=== PATIENT | female | born 1995 | race Caucasian/White ===

== ENCOUNTER 2022-06-11 21:24 | Emergency (ER) | payer OTHER ==
--- OUTSIDE RECORDS SUMMARY | 2022-06-11 21:29 | XMS REPORT | Continuity of Care Document ---
:1995 Author Organization [facility] t Address [address] [place] [address] Care Team Providers Name Role Phone Pcp, Patient Does Not Have A Primary Care Physician [phone] MAXIMINO ROSARIO Attending Clinician Unavailable ARRON CHILD Attending Clinician Unavailable Sly ARECHIGA, Moisés Attending Clinician Unavailable Maximino Rosario MD Attending Clinician Unavailable Jun Romero Attending Clinician [phone] JUN SALCEDO Attending Clinician Unavailable Josue Cheek Attending Clinician JOSUE MONTEIRO Attending Clinician Unavailable Morgan Luque Attending Clinician JAMAR BRISCOE Attending Clinician Unavailable Jamar Stein Attending Clinician Marco Moore MD Attending Clinician Doctor Unassigned, [place] Attending Clinician Unavailable PRETTY WEBSTER Attending Clinician Unavailable PRETTY WEBSTER Attending Clinician Unavailable Tay García PA-C Attending Clinician Only, Adc Test Attending Clinician Unavailable Pob, Adc Lab Main Attending Clinician Unavailable TAY GARCÍA Attending Clinician Unavailable Vtc-Lab Attending Clinician Unavailable RADHIKA BOLANOS Attending Clinician Unavailable Cici GUMMED TAPE PRESS OPERATORRadhika Attending Clinician ARCELIA BRANDON Attending Clinician Unavailable Stoney Palma MD Attending Clinician STONEY PALMA Attending Clinician Unavailable CHAZ THOMPSON Attending Clinician Unavailable Sadiq Chase Attending Clinician Jerry PHD, Orin Zhao Attending Clinician MORGAN DUGGAN Attending Clinician Unavailable MARCO MOORE Attending Clinician Unavailable MARCO MOORE Attending Clinician Unavailable JOSE ARIZMENDI Attending Clinician Unavailable Jose Arizmendi MD Attending Clinician Tripp Reyes DO Attending Clinician Bella Flores MD Attending Clinician Eduardo De Paz Attending Clinician EDUARDO VELIZ Attending Clinician Unavailable Ultrasound, Robinaebenezer Attending Clinician Unavailable Zacarias Perez MD Attending Clinician Gi Cervantes DNP Attending Clinician RYAN LOPEZ Attending Clinician Unavailable Guanako ANDRADEP, Ryan Attending Clinician GI CERVANTES Attending Clinician Unavailable Katie Cox RN Attending Clinician Unavailable 1, [facility] Attending Clinician Unavailable Tatyana Rodriguez MD Attending Clinician TATYANA RODRIGUEZ Attending Clinician Unavailable BRANDON PERAZA Attending Clinician Unavailable Faculty, [facility] Attending Clinician Unavailable [facility] Attending Clinician Unavailable Jazzy Antonio MD Attending Clinician BOUCHRA PASTRANA Attending Clinician Unavailable CLAUDIO GAN Attending Clinician Unavailable Sai Morris Attending Clinician Unavailable UNKNOWN, ATTENDING Attending Clinician Unavailable Bradly JACOMENidia Attending Clinician Denys LIU Belal Pavel Attending Clinician Vls-Lab Attending Clinician Unavailable MAXIMINO ROSARIO Admitting Clinician Unavailable Maximino Rosario MD Admitting Clinician STONEY PALMA Admitting Clinician Unavailable JOSE ARIZMENDI Admitting Clinician Unavailable Jose Arizmendi MD Admitting Clinician Physician, No Primary or Family Admitting Clinician Unavaila ble Payers Payer Name Policy Type Policy Number Effective Date Expiration Date Sue HAYWOOD [id number] 2018 HEALTH 00:00:00 Problems Condition Condition Condition Status Onset Resolution Last Treating Co mments Source Name Details Category Date Date Treatment Clinician Date Relies on Relies on Disease Active Uni vers partner partner 03-28 [place] contracept contracept Br anch ion ion Diarrhea, Diarrhea, Disease Active Overview: Univers unspecifie unspecifie 608 Formattin ity of d type d type 00:00: g of this [place] 00 note Medical might be Branch different from the original. Added automatic ally from request for surgery [id number] Abdominal Abdominal Disease Active Overview: Univers pain, pain, 608 Formattin ity of generalize generalize 00:00: g of this [place] d d 00 note Medical might be Branch different from the original. Added automatic ally from request for surgery [id number] Single Single Disease Active 2020-07 Univers liveborn liveborn 08-17 ity of 00:00: [place] 00 Medical Branch Disease Active 2020-07 Univers (spontaneo (spontaneo 08-17 [place] vaginal [place] delivery[place] 00 [facility] radha Branch Anemia of Anemia of Disease Active 2020-07 Uni vers mother in mother in 1-15 [place] of , , [place] antepartum antepartum 00 Me dical Branch Elevated Elevated Disease Active 2020-07 Unive rs BP without BP without 1-12 it y of diagnosis diagnosis 00:[place] of of 00 Medical hypertensi hypertensi Br anch on on Tobacco Tobacco Disease Active Overview: Univ ers abuse abuse 4-05 Formattin ity of 00:00: g of this [place] 00 note Medical might be Branch different from the original. Cessation at 12 weeks Screening Screening Disease Active Uni vers examinatio examinatio 3-12 it y of n for STD n for STD [place] ([place]ually (sexually 00 [facility] transmitte transmitte Br anch d disease) d disease) Anal Anal Disease Active Overview: Univer s fissure fissure 03-22 Formattin ity o f 00:00: g of this [place] 00 note Medical might be Branch different from the original. Added automatic ally from request for surgery [id number] Family Family Disease Active Overview: Univer s history of history of 9 Formattin ity of colon colon 00:00: g of this [place] cancer cancer 00 note Medical might be Branch different from the original. Added automatic ally from request for surgery [id number] 39 weeks 39 weeks Disease Active Unive rs gestation gestation 6-03 ity of of of 00:00: [place] 00 [facility] Branch Overweight Overweight Disease Active U nivers (BMI (BMI 5-30 ity of 25.0-29.9) 25.0-29.9) [place] Obesity Obesity Disease Active Univers (BMI (BMI 5-22 ity of 30-39.9) 30-39.9) 00:00: [place] [facility] Multiparit Multiparit Disease Active U nivers y y 3-12 ity of 00:00: [place] 00 Medical Branch History of History of Disease Active 2017-07 U nivers headache headache 2-03 ity of 00:00: [place] [facility] Supervisio Supervisio Disease Active 2017-07 Overview : Univers n of high n of high 0-08 Formattin i ty of risk risk 00:00: g of this [place] , , 00 note Me dical antepartum antepartum might be Branch different from the original. 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) 00 Medica l infection infection Bran ch History of History of Disease Active U nivers depression depression 5-09 it y of 00:00: [place] 00 Medical Branch Well woman Well woman Disease Active 2015-07 U nivers exam exam 0-03 ity of 00:00: [place] 00 Medical Branch Bipolar I Bipolar I Disease Active Uni vers disorder, disorder, 1-10 ity of most most 00:00: [place] recent recent 00 Medical episode episode Branch (or (or current) current) manic manic Allergies, Adverse Reactions, Alerts Allergy Allergy Status Severity Reaction(s) Onset Inactive Treating Comm ents Source Name Type Date Date Clinician Hydrocod Propensi Active Nausea Univer s one ty to and/or 11-23 ity of adverse Vomiting 00:00: [place] reaction 00 Medical s Branch HYDROCOD DRUG Active N/V Univers ONE INGREDI 11-23 ity of 00:00: [place] 00 Medical Branch No Known DA Active U [facility] Allergie - Clear s 00:00: [address] Social History Social Habit Start Date Stop Date Quantity Comments Source History of Cigarette Smoker Universi ty of tobacco use [place] [facility] History SDOH University o f Alcohol Frequency [place] M edical [facility] History SDOH University o f Alcohol Std [place] Medical Drinks Branch History SDAL University o f Alcohol Binge [place] [facility] Exposure to 2022-03-18 2022-03-28 Not sure University of SARS-CoV-2 00:00:00 15:51:00 [facility] (event) Branch Alcohol intake 2022-03-28 2022-03-28 0 /d University of 00:00:00 00:00:00 [facility] Tobacco use and 2021-10-03 2021-10-03 Smokeless tobacco Un iversity of exposure 00:00:00 00:00:00 non-user [facility] Alcohol Comment 2018-04-26 2018-04-26 Dc'd 07/27/2014/ Tess rsity of 00:00:00 00:00:00 last drank [facility] 04/20/2018 x 2 Branch drinks a day Sex Ass[birth year] At [birth year] Universit y of 00:00:00 00:00:00 [facility] Smoking Status Start Date Stop Date Source Ex-smoker 2021-10-03 00:00:00 2021-10-03 00:00:00 [facility] [place] Medications Ordered Filled Start Stop Current Ordering Indication Dosage Frequency Signature Comments Components Source Medication Medication Date Date Medication? Clinician (SIG) Name Name metroNIDAZO Yes [id number] 500mg Take 1 Univers LE 500 mg 9-30 tablet by ity o f tablet 00:00: mouth in [place] [address] the Medical morning Branch and 1 tablet in the evening. metroNIDAZO Yes [id number] 500mg Take 1 Univers LE 500 mg 9-30 tablet by ity o f tablet 00:00: mouth in [place] [address] the Medical morning Branch and 1 tablet in the evening. metroNIDAZO Yes [id number] 500mg Take 1 Univers LE 500 mg 9-30 tablet by ity o f tablet 00:00: mouth in [place] [address] the Medical morning Branch and 1 tablet in the evening. metroNIDAZO Yes [id number] 500mg Take 1 Univers LE 500 mg 9-30 tablet by ity o f tablet 00:00: mouth in [place] [address] the Medical morning Branch and 1 tablet in the evening. metroNIDAZO Yes [id number] 500mg Take 1 Univers LE 500 mg 9-30 tablet by ity o f tablet 00:00: mouth in [place] [address] the Medical morning Branch and 1 tablet in the evening. metroNIDAZO Yes [id number] 500mg Take 1 Univers LE 500 mg 9-12 tablet by ity o f tablet 00:00: mouth in [place] [address] the Medical morning Branch and 1 tablet in the evening. metroNIDAZO Yes [id number] 500mg Take 1 Univers LE 500 mg 9-12 tablet by ity o f tablet 00:00: mouth in [place] [address] the Medical morning Branch and 1 tablet in the evening. metroNIDAZO Yes [id number] 500mg Take 1 Univers LE 500 mg 9-12 tablet by ity o f tablet 00:00: mouth in [place] [address] the Medical morning Branch and 1 tablet in the evening. metroNIDAZO Yes [id number] 500mg Take 1 Univers LE 500 mg 9-12 tablet by ity o f tablet 00:00: mouth in [place] [address] the Medical morning Branch and 1 tablet in the evening. metroNIDAZO Yes [id number] 500mg Take 1 Univers LE 500 mg 9-12 tablet by ity o f tablet 00:00: mouth in [place] 00 the Medical morning Branch and 1 tablet in the evening. metroNIDAZO 2022-0 Yes [id number] 500mg Take 1 Univers LE 500 mg 9-12 tablet by ity o f tablet 00:00: mouth in [place] 00 the Medical morning Branch and 1 tablet in the evening. metroNIDAZO 2022-0 Yes [id number] 500mg Take 1 Univers LE 500 mg 9-12 tablet by ity o f tablet 00:00: mouth in [place] 00 the Medical morning Branch and 1 tablet in the evening. metroNIDAZO 2022-0 Yes [id number] 500mg Take 1 Univers LE 500 mg 9-12 tablet by ity o f tablet 00:00: mouth in [place] 00 the Medical morning Branch and 1 tablet in the evening. cyclobenzap 2-0 Yes [id number] 10mg Take 1 Univers rine 10 mg 8-14 tablet by ity of tablet 00:00: mouth 3 [place] (three) Medical times Branch daily as needed for Muscle Spasms. cyclobenzap 2-0 Yes [id number] 10mg Take 1 Univers rine 10 mg 8-14 tablet by ity of tablet 00:00: mouth 3 [place] (three) Medical times Branch daily as needed for Muscle Spasms. cyclobenzap 2-0 Yes [id number] 10mg Take 1 Univers rine 10 mg 8-14 tablet by ity of tablet 00:00: mouth 3 [place] (three) Medical times Branch daily as needed for Muscle Spasms. cyclobenzap 2022-0 Yes [id number] 10mg Take 1 Univers rine 10 mg 8-14 tablet by ity of tablet 00:00: mouth 3 [place] (three) Medical times Branch daily as needed for Muscle Spasms. cyclobenzap 2022-0 Yes [id number] 10mg Take 1 Univers rine 10 mg 8-14 tablet by ity of tablet 00:00: mouth 3 [place] (three) Medical times Branch daily as needed for Muscle Spasms. cyclobenzap 2022-0 Yes [id number] 10mg Take 1 Univers rine 10 mg 8-14 tablet by ity of tablet 00:00: mouth 3 [place] (three) Medical times Branch daily as needed for Muscle Spasms. cyclobenzap 2022-0 Yes [id number] 10mg Take 1 Univers rine 10 mg 8-14 tablet by ity of tablet 00:00: mouth 3 [place] 00 (three) Medical times Branch daily as needed for Muscle Spasms. cyclobenzap 2021-0 Yes [id number] 10mg Take 1 Univers rine 10 mg 8-14 tablet by ity of tablet 00:00: mouth 3 [place] 00 (three) Medical times Branch daily as needed for Muscle Spasms. Immunizations Ordered Immunization Filled Immunization Date Status Commen ts Source Name Name [facility] 2021-03-29 Completed University of 00:00:00 [facility] TDAP 2021-03-29 Completed University of 00:00:00 [facility] TDAP 2021-03-29 Completed University of 00:00:00 [facility] TDAP 2021-03-29 Completed University of 00:00:00 [facility] TDAP 2021-03-29 Completed University of 00:00:00 [facility] TDAP 2021-03-29 Completed University of 00:00:00 [facility] TDAP 2021-03-29 Completed University of 00:00:00 [facility] TDAP 2021-03-29 Completed University of 00:00:00 [facility] TDAP 2018-10-15 Completed University of 00:00:00 [facility] TDAP 2018-10-15 Completed University of 00:00:00 [facility] TDAP 2018-10-15 Completed University of 00:00:00 [facility] TDAP 2018-10-15 Completed University of 00:00:00 [facility] TDAP 2018-10-15 Completed University of 00:00:00 [facility] TDAP 2018-10-15 Completed University of 00:00:00 [facility] TDAP 2018-10-15 Completed University of 00:00:00 [facility] TDAP 2018-10-15 Completed University of 00:00:00 [facility] PPD (TB) 2012-08-23 Completed University of 00:00:00 [facility] PPD (TB) 2012-08-23 Completed University of 00:00:00 [facility] PPD (TB) 2012-08-23 Completed University of 00:00:00 [facility] PPD (TB) 2012-08-23 Completed University of 00:00:00 [facility] PPD (TB) 2012-08-23 Completed University of 00:00:00 [facility] PPD (TB) 2012-08-23 Completed University of 00:00:00 [facility] PPD (TB) 2012-08-23 Completed University of 00:00:00 [facility] PPD (TB) 2012-08-23 Completed University of 00:00:00 [facility] HPV Unspecified 2011-07-03 Completed Universit y of 00:00:00 [facility] Meningococcal 2011-07-03 Completed University of Polysaccharide 00:00:00 [place] Medi radha (groups A, C, Y and Branc h W-135) conjugate vaccine (MCV4P) TDAP 2011-07-03 Completed University of 00:00:00 [facility] Varicella 2011-07-03 Completed University of (varivax)(chicken 00:00:00 [place] M edical pox) Branch HPV Unspecified 2011-07-03 Completed Universit y of 00:00:00 [facility] Meningococcal 2011-07-03 Completed University of Polysaccharide 00:00:00 [place] Medi radha (groups A, C, Y and Branc h W-135) conjugate vaccine (MCV4P) TDAP 2011-07-03 Completed University of 00:00:00 [facility] Varicella 2011-07-03 Completed University of (varivax)(chicken 00:00:00 [place] [facility]ical pox) Branch HPV Unspecified 2011-07-03 Completed Universit y of 00:00:00 [facility] Meningococcal 2011-07-03 Completed University of Polysaccharide 00:00:00 [place] Medi radha (groups A, C, Y and Branc h W-135) conjugate vaccine (MCV4P) TDAP 2011-07-03 Completed University of 00:00:00 [facility] Varicella 2011-07-03 Completed University of (varivax)(chicken 00:00:00 [place] [facility]ical pox) Branch HPV Unspecified 2011-07-03 Completed Universit y of 00:00:00 [facility] Meningococcal 2011-07-03 Completed University of Polysaccharide 00:00:00 [place] Medi radha (groups A, C, Y and Branc h W-135) conjugate vaccine (MCV4P) TDAP 2011-07-03 Completed University of 00:00:00 [facility] Varicella 2011-07-03 Completed University of (varivax)(chicken 00:00:00 [place] M [facility]ical pox) Branch HPV Unspecified 2011-07-03 Completed Universit y of 00:00:00 [facility] Meningococcal 2011-07-03 Completed University of Polysaccharide 00:00:00 [place] Medi radha (groups A, C, Y and Branc h W-135) conjugate vaccine (MCV4P) TDAP 2011-07-03 Completed University of 00:00:00 [facility] Varicella 2011-07-03 Completed University of (varivax)(chicken 00:00:00 [place] M [facility]ical pox) Branch HPV Unspecified 2011-07-03 Completed Universit y of 00:00:00 [facility] Meningococcal 2011-07-03 Completed University of Polysaccharide 00:00:00 [place] Medi radha (groups A, C, Y and Branc h W-135) conjugate vaccine (MCV4P) TDAP 2011-07-03 Completed University of 00:00:00 [facility] Varicella 2011-07-03 Completed University of (varivax)(chicken 00:00:00 [place] M [facility]ical pox) Branch HPV Unspecified 2011-07-03 Completed Universit y of 00:00:00 [facility] Meningococcal 2011-07-03 Completed University of Polysaccharide 00:00:00 [place] Medi radha (groups A, C, Y and Branc h W-135) conjugate vaccine (MCV4P) TDAP 2011-07-03 Completed University of 00:00:00 [facility] Varicella 2011-07-03 Completed University of (varivax)(chicken 00:00:00 [place] M edical pox) Branch HPV Unspecified 2011-07-03 Completed Universit y of 00:00:00 [facility] Meningococcal 2011-07-03 Completed University of Polysaccharide 00:00:00 [place] Medi radha (groups A, C, Y and Branc h W-135) conjugate vaccine (MCV4P) TDAP 2011-07-03 Completed University of 00:00:00 [facility] Varicella 2011-07-03 Completed University of (varivax)(chicken 00:00:00 [place] M edical pox) Branch TDAP 2009-10-19 Completed University of 00:00:00 [facility] TDAP 2009-10-19 Completed University of 00:00:00 [facility] TDAP 2009-10-19 Completed University of 00:00:00 [facility] TDAP 2009-10-19 Completed University of 00:00:00 [facility] TDAP 2009-10-19 Completed University of 00:00:00 [place] [facility] TDAP 2009-10-19 Completed University of 00:00:00 [place] [facility] TDAP 2009-10-19 Completed University of 00:00:00 [place] [facility] TDAP 2009-10-19 Completed University of 00:00:00 [place] [facility] HEPATITIS A 2006-03-17 Completed University of 00:00:00 [place] [facility] HEPATITIS A 2006-03-17 Completed University of 00:00:00 [place] [facility] HEPATITIS A 2006-03-17 Completed University of 00:00:00 [place] [facility] HEPATITIS A 2006-03-17 Completed University of 00:00:00 [place] [facility] HEPATITIS A 2006-03-17 Completed University of 00:00:00 [place] [facility] HEPATITIS A 2006-03-17 Completed University of 00:00:00 [place] [facility] HEPATITIS A 2006-03-17 Completed University of 00:00:00 [place] [facility] HEPATITIS A 2006-03-17 Completed University of 00:00:00 [place] [facility] HEPATITIS A 2005-02-24 Completed University of 00:00:00 [place] [facility] HEPATITIS A 2005-02-24 Completed University of 00:00:00 [place] [facility] HEPATITIS A 2005-02-24 Completed University of 00:00:00 [place] [facility] HEPATITIS A 2005-02-24 Completed University of 00:00:00 [place] [facility] HEPATITIS A 2005-02-24 Completed University of 00:00:00 [place] [facility] HEPATITIS A 2005-02-24 Completed University of 00:00:00 [place] [facility] HEPATITIS A 2005-02-24 Completed University of 00:00:00 [place] [facility] HEPATITIS A 2005-02-24 Completed University of 00:00:00 [facility] Branch DTAP 2002-03-07 Completed University of 00:00:00 [facility] Branch MMR 2002-03-07 Completed University of 00:00:00 [facility] Branch Polio (IPV/OPV) 2002-03-07 Completed Universit y of 00:00:00 [place] [facility] DTAP 2002-03-07 Completed University of 00:00:00 [facility] Branch MMR 2002-03-07 Completed University of 00:00:00 [facility] Branch Polio (IPV/OPV) 2002-03-07 Completed Universit y of 00:00:00 [facility] Branch DTAP 2002-03-07 Completed University of 00:00:00 [facility] MMR 2002-03-07 Completed University of 00:00:00 [facility] Polio (IPV/OPV) 2002-03-07 Completed Universit y of 00:00:00 [facility] DTAP 2002-03-07 Completed University of 00:00:00 [facility] MMR 2002-03-07 Completed University of 00:00:00 [facility] Polio (IPV/OPV) 2002-03-07 Completed Universit y of 00:00:00 [facility] DTAP 2002-03-07 Completed University of 00:00:00 [facility] MMR 2002-03-07 Completed University of 00:00:00 [facility] Polio (IPV/OPV) 2002-03-07 Completed Universit y of 00:00:00 [facility] DTAP 2002-03-07 Completed University of 00:00:00 [facility] MMR 2002-03-07 Completed University of 00:00:00 [facility] Polio (IPV/OPV) 2002-03-07 Completed Universit y of 00:00:00 [facility] DTAP 2002-03-07 Completed University of 00:00:00 [facility] MMR 2002-03-07 Completed University of 00:00:00 [facility] Polio (IPV/OPV) 2002-03-07 Completed Universit y of 00:00:00 [facility] DTAP 2002-03-07 Completed University of 00:00:00 [facility] MMR 2002-03-07 Completed University of 00:00:00 [facility] Polio (IPV/OPV) 2002-03-07 Completed Universit y of 00:00:00 [facility] DTAP 1997 Completed University of 00:00:00 [facility] HIB 4 Dose Schedule 1997 Completed Unive rsity of 00:00:00 [facility] Hep B, Adol or Pedi 1997 Completed Unive rsity of Dosage 00:00:00 [facility] DTAP 1997 Completed University of 00:00:00 [facility] HIB 4 Dose Schedule 1997 Completed Unive rsity of 00:00:00 [facility] Hep B, Adol or Pedi 1997 Completed Unive rsity of Dosage 00:00:00 [facility] DTAP 1997 Completed University of 00:00:00 [facility] HIB 4 Dose Schedule 1997 Completed Unive rsity of 00:00:00 [place] [facility] Hep B, Adol or Pedi 1997 Completed Unive rsity of Dosage 00:00:00 [facility] Branch DTAP 1997 Completed University of 00:00:00 [facility] HIB 4 Dose Schedule 1997 Completed Unive rsity of 00:00:00 [facility] Branch Hep B, Adol or Pedi 1995 Completed Unive rsity of Dosage 00:00:00 [facility] Branch DTAP 1997 Completed University of 00:00:00 [facility] HIB 4 Dose Schedule 1997 Completed Unive rsity of 00:00:00 [facility] Branch Hep B, Adol or Pedi 1995 Completed Unive rsity of Dosage 00:00:00 [facility] DTAP 1997 Completed University of 00:00:00 [facility] HIB 4 Dose Schedule 1997 Completed Unive rsity of 00:00:00 [facility] Branch Hep B, Adol or Pedi 1997 Completed Unive rsity of Dosage 00:00:00 [facility] DTAP 1997 Completed University of 00:00:00 [facility] HIB 4 Dose Schedule 1997 Completed Unive rsity of 00:00:00 [facility] Branch Hep B, Adol or Pedi 1997 Completed Unive rsity of Dosage 00:00:00 [facility] DTAP 1997 Completed University of 00:00:00 [facility] HIB 4 Dose Schedule 1997 Completed Unive rsity of 00:00:00 [facility] Branch Hep B, Adol or Pedi 1997 Completed Unive rsity of Dosage 00:00:00 [facility] DTAP 1997 Completed [facility] of 00:00:00 [facility] HIB 4 Dose Schedule 1997 Completed [facility]ive rsity of 00:00:00 [facility] Polio (IPV/OPV) 1997 Completed Universit y of 00:00:00 [facility] DTAP 1997 Completed University of 00:00:00 [facility] HIB 4 Dose Schedule 1997 Completed Unive rsity of 00:00:00 [facility] Polio (IPV/OPV) 1997 Completed Universit y of 00:00:00 [facility] DTAP 1997 Completed University of 00:00:00 [facility] HIB 4 Dose Schedule 1997 Completed Unive rsity of 00:00:00 [facility] Polio (IPV/OPV) 1997 Completed Universit y of 00:00:00 [facility] DTAP 1997 Completed University of 00:00:00 [facility] HIB 4 Dose Schedule 1997 Completed Unive rsity of 00:00:00 [facility] Polio (IPV/OPV) 1997 Completed Universit y of 00:00:00 [facility] DTAP 1997 Completed University of 00:00:00 [facility] HIB 4 Dose Schedule 1997 Completed Unive rsity of 00:00:00 [facility] Polio (IPV/OPV) 1997 Completed Universit y of 00:00:00 [facility] DTAP 1997 Completed University of 00:00:00 [facility] HIB 4 Dose Schedule 1997 Completed Unive rsity of 00:00:00 [facility] Polio (IPV/OPV) 1997 Completed Universit y of 00:00:00 [facility] DTAP 1997 Completed University of 00:00:00 [facility] HIB 4 Dose Schedule 1997 Completed Unive rsity of 00:00:00 [facility] Polio (IPV/OPV) 1997 Completed Universit y of 00:00:00 [facility] DTAP 1997 Completed University of 00:00:00 [facility] HIB 4 Dose Schedule 1997 Completed Unive rsity of 00:00:00 [facility] Polio (IPV/OPV) 1997 Completed Universit y of 00:00:00 [facility] DTAP 1997 Completed [facility] of 00:00:00 [facility] HIB 4 Dose Schedule 1997 Completed [facility]ive rsity of 00:00:00 [facility] Hep B, Adol or Pedi 1997 Completed Unive rsity of Dosage 00:00:00 [facility] Polio (IPV/OPV) 1997 Completed Universit y of 00:00:00 [facility] DTAP 1997 Completed University of 00:00:00 [facility] HIB 4 Dose Schedule 1997 Completed [facility]ive rsity of 00:00:00 [facility] Hep B, Adol or Pedi 1997 Completed Unive rsity of Dosage 00:00:00 [facility] Polio (IPV/OPV) 1997 Completed Universit y of 00:00:00 [facility] DTAP 1997 Completed University of 00:00:00 [facility] HIB 4 Dose Schedule 1997 Completed [facility]ive rsity of 00:00:00 [facility] Hep B, Adol or Pedi 1997 Completed [facility]ive rsity of Dosage 00:00:00 [facility] Polio (IPV/OPV) 1997 Completed [facility] of 00:00:00 [facility] DTAP 1997 Completed University of 00:00:00 [facility] HIB 4 Dose Schedule 1997 Completed Unive rsity of 00:00:00 [facility] Hep B, Adol or Pedi 1997 Completed Unive rsity of Dosage 00:00:00 [facility] Polio (IPV/OPV) 1997 Completed Universit y of 00:00:00 [facility] DTAP 1997 Completed University of 00:00:00 [facility] HIB 4 Dose Schedule 1997 Completed Unive rsity of 00:00:00 [facility] Hep B, Adol or Pedi 1997 Completed Unive rsity of Dosage 00:00:00 [facility] Polio (IPV/OPV) 1997 Completed Universit y of 00:00:00 [facility] DTAP 1997 Completed University of 00:00:00 [facility] HIB 4 Dose Schedule 1997 Completed Unive rsity of 00:00:00 [facility] Hep B, Adol or Pedi 1997 Completed Unive rsity of Dosage 00:00:00 [facility] Polio (IPV/OPV) 1997 Completed Universit y of 00:00:00 [facility] DTAP 1997 Completed University of 00:00:00 [facility] HIB 4 Dose Schedule 1997 Completed Unive rsity of 00:00:00 [facility] Hep B, Adol or Pedi 1997 Completed Unive rsity of Dosage 00:00:00 [facility] Polio (IPV/OPV) 1997 Completed Universit y of 00:00:00 [facility] DTAP 1997 Completed University of 00:00:00 [facility] HIB 4 Dose Schedule 1997 Completed Unive rsity of 00:00:00 [facility] Hep B, Adol or Pedi 1997 Completed Unive rsity of Dosage 00:00:00 [facility] Polio (IPV/OPV) 1997 Completed Universit y of 00:00:00 [facility] Hep B, Adol or Pedi 1997 Completed Unive rsity of Dosage 00:00:00 [facility] Hep B, Adol or Pedi 1997 Completed Unive rsity of Dosage 00:00:00 [facility] Hep B, Adol or Pedi 1997 Completed Unive rsity of Dosage 00:00:00 [facility] Hep B, Adol or Pedi 1997 Completed Unive rsity of Dosage 00:00:00 [facility] Hep B, Adol or Pedi 1997 Completed Unive rsity of Dosage 00:00:00 [facility] Hep B, Adol or Pedi 1997 Completed Unive rsity of Dosage 00:00:00 [facility] Hep B, Adol or Pedi 1997 Completed Unive rsity of Dosage 00:00:00 [facility] Hep B, Adol or Pedi 1997 Completed Unive rsity of Dosage 00:00:00 [facility] Procedures This patient has no known procedures. Encounters Start End Encounter Admission Attending Care Care Encounter Source Date/Time Date/Time Type Type Clinicians Facility Department ID 2021-05-16 Outpatient R MAXIMINO ROSARIO [facility] [id number] Univers 16:38:01 ity of [facility] 2022-06-11 2022-06-11 Nurse JYOTI Heart 1.2.840.114 [id number] Univers 00:00:00 00:00:00 Triage Moisés REY 350.1.13.10 ity of HOSPITAL 4.2.7.2.686 Maikel as [phone] [address] 2022-06-11 2022-06-11 Telephone Maximino Rosario [facility] 1.2.840.114 [id number] Univers 00:00:00 00:00:00 [facility] 350.1.13.10 [place] [phone] Sc jordanva EMANUEL [address] [place] [address] 2022-04-18 2022-04-18 [facility] 1.2.840.114 [id number] Univers 00:00:00 00:00:00 Jun C SHEEP SHEARER 350.1.13.10 ity of [facility] 4.2.7.2.686 Maikel as MATERNAL [phone] Med ical & CHILD [address] [place] [address] 2022-04-18 2022-04-18 Refill [facility] 1.2.378.586 [id number] Univers 00:00:00 00:00:00 Jun C SHEEP SHEARER 350.1.13.10 ity of REGIONAL 4.2.7.2.686 Maikel as MATERNAL [phone] Med ical & CHILD [address] [place] [address] 2022-03-31 2022-03-31 Telephone [facility] 1.2.840.114 [id number] Univers 00:00:00 00:00:00 Jun C SHEEP SHEARER 350.1.13.10 ity of REGIONAL 4.2.7.2.686 Maikel as MATERNAL [phone] Med ical & CHILD [address] [place] [address] 2022-03-31 2022-03-31 Telephone [facility] 1.2.840.114 [id number] Univers 00:00:00 00:00:00 Jun C SHEEP SHEARER 350.1.13.10 ity of REGIONAL 4.2.7.2.686 Maikel as MATERNAL [phone] [facility] ical & CHILD [address] [place] [address] 2022-03-28 2022-03-28 Office [facility] 1.2.250.905 [id number] Univers 15:45:00 16:22:23 Visit Jun Fall SHEEP SHEARER 350.1.13.10 ity of REGIONAL 4.2.7.2.686 Maikel as MATERNAL [phone] [facility] & CHILD [address] [place] [address] 2022-03-28 2022-03-28 Outpatient R ROSA [facility] [id number] Univers 15:45:00 16:22:23 JUN suarez o f [facility] 2022-03-28 2022-03-28 [facility] [id number] Univers 15:45:00 15:45:00 JUN suarez o [facility] 2022-03-27 2022-03-27 Telephone [facility] 1.2.716.342 [id number] Univers 00:00:00 00:00:00 Sanketnda R SHEEP SHEARER 350.1.13.10 ity of REGIONAL 4.2.7.2.686 Maikel as MATERNAL [phone] [facility] & [address] 2022-03-17 2022-03-17 Telephone [facility] 1.2.362.738 [id number] Univers 00:00:00 00:00:00 Roschristinanda R SHEEP SHEARER 350.1.13.10 ity of REGIONAL 4.2.7.2.686 Maikel as MATERNAL [phone] [facility] & [address] 2022-03-14 2022-03-14 Psychiatric hospital 1.2.608.300 [id number] Univers 00:00:00 00:00:00 Roshunda R SHEEP SHEARER 350.1.13.10 ity of REGIONAL 4.2.7.2.686 Maikel as MATERNAL [phone] [facility] & CHILD [address] [place] [address] 2022-03-08 2022-03-08 [facility] [id number] Univers 08:30:00 08:55:09 ROSHUNDA ity o [facility] 2022-03-08 2022-03-08 Office [facility] 1.2.840.114 [id number] Univers 08:30:00 08:55:09 Visit Josue R SHEEP SHEARER 350.1.13.10 ity [facility] 4.2.7.2.686 Maikel as MATERNAL [phone] Med ical & CHILD [address] [place] [address] 2022-03-08 2022-03-08 Out[facility] [id number] Univers 08:30:00 08:55:09 JOSUE ity o f [facility] 2022-03-04 2022-03-04 Patient Maureen [facility] 1.2.840.114 [id number] Univers 00:00:00 00:00:00 Secure [facility] HEALTH 350.1.13.10 ity of [place] 4.2.7.2.686 Maikel as LEO?BLEA [phone] [address] MEDICAL OFFICE [facility] 2022-03-02 2022-03-02 Outpatient R [facility] [id number] Univers 13:09:08 23:59:00 JAMAR ity of [facility] 2022-03-02 2022-03-02 Count includes the [facility] 1.2.840.114 [id number] Univers 13:09:08 23:59:00 Encounter Jamar HEALTH 350.1.13.10 ity of [place] 4.2.7.2.686 Maikel as LEO?BLEA [phone] [facility] [address] MEDICAL OFFICE [facility] 2022-03-02 2022-03-02 [facility] 1.2.840.114 [id number] Univers 12:40:00 13:15:58 Care Jamar HEALTH 350.1.13.10 it y of [place] 4.2.7.2.686 Maikel as LEO?BLEA [phone] [facility] [address] MEDICAL OFFICE BUILDING 2022-01-23 2022-01-23 Patient HUBERT [facility] 1.2.840.114 [id number] Univers 00:00:00 00:00:00 Secure Msg [facility] 350.1.13.10 ity of CLINICS [place].2.7.2.[place] [phone] [facility] [address] 2022-01-10 2022-01-10 Telephone Maximino Rsoario [facility] 1.2.840.114 [id number] Univers 00:00:00 00:00:00 [place] [facility] 350.1.13.10 [place] [phone] Sc val CSATELLANOS 072 [facility] 2022-01-09 2022-01-09 Outpatient R ABRAHAM SUTTER [facility] [id number] Univers 13:39:00 15:55:00 ity of [facility] 2022-01-09 2022-01-09 Hospital Abraham [facility] 1.2.840.114 [id number] Univers 13:39:00 15:55:00 Encounter [facility] HEALTH 350.1.13.10 ity of [place].2.7.2.686 [place] [facility] [phone] [address] ([facility]) 2022-01-09 2022-01-09 Surgery [facility] 1.2.464.276 [id number] Univers 14:30:00 15:15:00 [facility] SPECIALTY 350.1.13.10 it[place] C[place]2.[place].2.[place] [phone] Sc val CASTELLANOS 020 [facility] 2022-01-09 2022-01-09 Orders Doctor JYOTI 1.2.840.114 [id number] Univers 00:00:00 00:00:00 Only Unassigned, KRISSY 350.1.13.10 ity of [place] [facility] 4.2.7.2.686 Maikel as [phone] [facility] [address] 2022-01-08 2022-01-08 Outpatient R PRETTY WEBSTER [facility] [id number] Univers 15:00:00 15:00:00 PRETTY WEBSTER ity of [facility] 2022-01-08 2022-01-08 Telephone [facility] 1.2.977.832 [id number] Univers 00:00:00 00:00:00 Tay L MULTISPEC 350.1.13.10 ity of IALTY 4.2.7.2.686 [facility] [phone] [facility] AND [address] DIABETES CLINIC 2022-01-07 2022-01-07 Telephone Amy [facility] 1.2.593.246 [id number] Univers 00:00:00 00:00:00 Taymarianne GUARDADOPEC 350.1.13.10 ity of IALTY 4.2.7.2.686 [facility] [place] [phone] [facility] AND [address] DIABETES CLINIC 2022-01-06 2022-01-06 Laboratory Only, Adc Test [facility] 1.2.840. 114 [id number] Univers 16:00:00 16:15:00 Only Maximino Rosario 350.1.13.10 ity of [place] 4.2.7.2.[address] [place] [phone] 2022-01-06 2022-01-06 Outpatient R MAXIMINO ROSARIO [facility] [id number] Univers 16:00:00 16:00:00 ity of [facility] 2022-01-02 2022-01-02 Telephone Amy [facility] 1.2.801.855 [id number] Univers 00:00:00 00:00:00 Tay GUARDADOPEC 350.1.13.10 ity of IALTY 4.2.7.2.686 [facility] [place] [phone] [facility] AND [address] DIABETES CLINIC 2022-01-02 2022-01-02 Patient Amy [facility] 1.2.840.114 [id number] Univers 00:00:00 00:00:00 Secure Msg Tay Zhao SPECIALTY 350.1.13.10 ity of CARE 4.2.7.2.686 [facility] [place] AT [phone] Sc val CASTELLANOS [address] [place] [address] 2021-12-23 2021-12-23 Manugrapher Jey, Pham Lab Main [facility] 1.2.8 40.114 [id number] Univers 17:15:00 17:30:00 Visit Amy Tay L [place] 350.1.13.10 ity of [place].2.7.2.686 [place] PROFESSIO [phone] [facility] [address] 2021-12-23 2021-12-23 Outpatient Ana GARCÍA [facility] [id number] Univers 17:15:00 17:15:[address] [facility] 2021-12-20 2021-12-20 Manugrapher [facility] 1.2.840.114 [id number] Univers 11:15:00 11:30:00 Visit Tay GarcíaPEC 350.1.13.10 it[place] of [place]2.[place].2.[place] [phone] [facility] [address] DIABETES CLINIC 2021-12-20 2021-12-20 Manugrapher [facility] 1.2.840.114 [id number] [facility] 11:15:00 11:30:00 Visit Tay García 350.1.13.10 it[place] of [place].2.[place] [phone] [facility] AND [address] DIABETES CLINIC 2021-12-20 2021-12-20 Outpatient Ana GARCÍA [facility] [id number] Univers 09:30:00 11:25:[address] [facility] 2021-12-20 2021-12-20 Office Amy [facility] 1.2.840.114 [id number] Univers 09:30:00 11:25:41 Visit Tay SHARMA 350.1.13.10 ity of [place].2.7.2.[place] [id number] [facility] AND [place] [address] DIABETES CLINIC 2021-12-20 2021-12-20 Outpatient Ana GARCÍA [facility] [id number] Univers 09:30:00 11:25:[address] [facility] 2021-12-20 2021-12-20 Orders Doctor MONTES 1.2.840.114 [id number] Univers 00:00:00 00:00:00 Only Unassigned, KRISSY 350.1.13.10 ity of [place] [facility] 4.2.7.2.686 Maikel as [phone] [facility] [address] 2021-12-07 2021-12-07 Outpatient [facility] [id number] Univers 14:20:00 15:10:49 RADHIKA suarez o [facility] 2021-12-07 2021-12-07 Urgent [facility] 1.2.840.114 [id number] Univers 14:20:00 15:10:49 Care Radhika [facility] 350.1.13.10 ity of [place] 4.2.7.2.686 Maikel as LEO?BLEA [phone] [address] MEDICAL OFFICE BUILDING 2021-12-07 2021-12-07 [facility] [id number] Univers 14:20:00 15:10:49 RADHIKA suarez [facility] 2021-10-30 2021-10-30 Outpatient [facility] [id number] Univers 14:45:00 14:45:00 ARCELIAJAIMIE suarez [facility] 2021-10-30 2021-10-30 Outpatient Ana [facility] [id number] Univers 14:45:00 14:45:00 ARCELIA daniela [facility] 2021-10-24 2021-10-24 [facility] 1.2.840.114 [id number] Univers 13:45:00 14:00:00 Visit Stoney SNYDER 350.1.13.10 i ty of [facility] [place].2.[place] [phone] [facility] [address] 2021-10-24 2021-10-24 Outpatient [facility] [id number] Univers 13:45:00 13:45:[address] [facility] 2021-10-22 2021-10-22 Outpatient Ana PALMA [facility] [id number] Univers 16:15:00 16:15:[address] [facility] 2021-10-22 2021-10-22 Outpatient Ana PALMA [facility] [id number] Univers 16:15:00 16:15:[address] [facility] 2021-10-18 2021-10-18 Outpatient R CAYETANO [facility] [id number] Univers 09:45:00 09:45:00 ROSCHRISTINANDA ity o f [facility] 2021-10-18 2021-10-18 Outpatient R CAYETANO [facility] [id number] Univers 09:45:00 09:45:00 ROSCHRISTINANDA ity o f [facility] 2021-10-18 2021-10-18 Outpatient R JAY [facility] [id number] Univers 08:30:00 08:30:[address] [facility] 2021-10-10 2021-10-10 Outpatient R MINERVA [facility] [id number] Univers 07:49:55 23:59:00 [facility] 2021-10-10 2021-10-10 Hospital [facility] 1.2.840.114 [id number] Univers 07:49:55 23:59:00 Encounter [place] [facility] 350.1.13.10 ity of [place] 4.2.7.2.686 [facility] [phone] [facility] [address] 2021-10-03 2021-10-04 Office [facility] 1.2.840.114 [id number] Univers 14:45:00 11:00:18 Visit Stoney CLAUDIO 350.1.13.10 i ty of [place].2.7.2.686 [place] [id number] [facility] [address] 2021-10-03 2021-10-04 Outpatient R MINERVA [facility] [id number] Univers 14:45:00 11:00:[address] [facility] 2021-10-03 2021-10-03 Ancillary Sadiq Ritchie [facility] 1.2.840.11 [id number] Univers 15:30:00 16:15:00 Visit Minerva Stoney SNYDER 350.1.13.10 ity of Orin Edwards [facility] 4.2.7.2.686 [place] [phone] [facility] [address] 2021-10-03 2021-10-03 Outpatient R MINERVA, [facility] [id number] Univers 14:45:00 14:45:00 [facility] 2021-10-03 2021-10-03 Outpatient [facility] [id number] Univers 14:45:00 14:45:00 [facility] 2021-10-03 2021-10-03 Orders Doctor MONTES 1.2.840.114 [id number] Univers 00:00:00 00:00:00 Only Unassigned, KRISSY 350.1.13.10 ity of [place] [facility] 4.2.7.2.686 Maikel as [phone] [address] 2021-09-17 2021-09-17 Outpatient R MAUREEN [facility] [id number] Univers 18:00:00 18:00:[address] [facility] 2021-09-17 2021-09-17 Orders Doctor MONTES 1.2.840.114 [id number] Univers 00:00:00 00:00:00 Only Unassigned, KRISSY 350.1.13.10 ity of [place] [facility] 4.2.7.2.686 Maikel as [phone] [address] 2021-07-31 2021-07-31 [facility]ander [facility] 1.2.840.114 [id number] Univers 00:00:00 00:00:00 [facility] 350.1.13.10 ity [facility] 4.2.7.2.686 Maikel as LEO?BLEA [phone] [facility] [address] MEDICAL OFFICE BUILDING 2021-07-30 2021-07-30 Office Robinson [facility] 1.2.840.114 [id number] Univers 16:20:00 16:48:35 Visit [facility] 350.1.13.10 ity [facility] 4.2.7.2.686 Maikel as LEO?BLEA [phone] [facility] [address] MEDICAL OFFICE BUILDING 2021-07-30 2021-07-30 Outpatient MARCO GÓMEZ [facility] [id number] Univers 16:20:00 16:48:35 MARCO MO[address] jeffrey [facility] 2021-07-30 2021-07-30 Outpatient R MARCO MOORE [facility] [id number] Univers 16:20:00 16:20:[address] [facility] 2021-07-30 2021-07-30 Office [facility] 1.2.840.114 [id number] Univers 13:00:00 13:50:05 Visit Josue Ana SHEEP SHEARER 350.1.13.10 ity [facility] 4.2.7.2.686 Maikel as MATERNAL [phone] Med ical & CHILD [address] [place] [address] 2021-07-30 2021-07-30 Outpatient Ana MONTEIRO [facility] [id number] Univers 13:00:00 13:50:05 ARELYVERN babin adi [facility] 2021-07-30 2021-07-30 Outpatient [facility] [id number] Univers 13:00:00 13:50:05 ARELYCARIDADMarianne daniela babin adi [facility] 2021-07-02 2021-07-02 Patient Robinson [facility] 1.2.840.114 [id number] Univers 00:00:00 00:00:00 Secure Msg Marco [facility] 350.1.13.10 [facility] 4.2.7.2.686 Maikel as LEO?BLEA [phone] Sc val [address] MEDICAL OFFICE BUILDING 2021-06-15 2021-06-17 Inpatient P KYLEIGH [facility] SHRADDHA [id number] Univers 12:01:00 17:56:00 JOSE joshi [facility] 2021-06-15 2021-06-17 Hospital JYOTI Arizmendi 1.2.199.222 [id number] Univers 12:01:00 17:56:00 Encounter Jose KRISSY 350.1.13.10 ity [facility] 4.2.7.2.686 Maikel as [phone] [address] 2021-06-15 2021-06-16 Anesthesia Tripp Reyes 1.2.840.114 [id number] Univers 23:57:00 15:23:00 Event Bella Flores 350.1.13.10 ity of [place] [address].7.2.686 Maikel as [phone] [address] 2021-06-12 2021-06-12 Outpatient R [facility] [id number] Univers 13:30:00 13:30:[address] [facility] 2021-06-09 2021-06-09 Telephone [facility] 12.840.114 [id number] Univers 00:00:00 00:00:00 Eduardo Shukla SHEEP SHEARER 350.1.13.10 it y of [address]686 Maikel as MATERNAL [phone] [facility] ical & CHILD [address] [place] [address] 2021-06-06 2021-06-06 Routine [facility] 1.2.123.877 [id number] Univers 08:20:54 09:16:53 Eduardo Shukla SHEEP SHEARER 350.1.13.10 i ty of Visit [place] [address]..7.2.686 Maikel as MATERNAL [phone] [facility] & [address] 2021-06-06 2021-06-06 Outpatient R [facility] [id number] Univers 08:15:00 09:16:[address] [facility] 2021-06-06 2021-06-06 Outpatient R [facility] [id number] Univers 08:15:00 08:15:[address] [facility] 2021-06-03 2021-06-03 Outpatient R [facility] [id number] Univers 09:00:00 09:00:[address] [facility] 2021-06-03 2021-06-03 Outpatient R [facility] [id number] Univers 09:00:00 09:00:[address] [facility] 2021-06-03 2021-06-03 Telephone [facility] 12.840.114 [id number] Univers 00:00:00 00:00:00 Eduardo Shukla SHEEP SHEARER 350.1.13.10 it y of REGIONAL 4.2.7.2.686 Maikel as MATERNAL [phone] Med ical & CHILD [address] [place] [address] 2021-06-03 2021-06-03 Telephone [facility] 1.2.840.114 [id number] Univers 00:00:00 00:00:00 Eduardo Shukla SHEEP SHEARER 350.1.13.10 it y of [facility] 4.2.7.2.686 Maikel as MATERNAL [phone] Med ical & CHILD [address] [place] [address] 2021-05-31 2021-05-31 Routine [facility] 1.2.418.616 [id number] Univers 08:16:59 09:13:02 Eduardo Shukla SHEEP SHEARER 350.1.13.10 i ty of Visit REGIONAL 4.2.7.2.686 Maikel as MATERNAL [phone] Med ical & CHILD [address] [place] [address] 2021-05-31 2021-05-31 [facility] [id number] Univers 08:15:00 09:13:[address] [facility] 2021-05-31 2021-05-31 Outpatient [facility] [id number] Univers 08:15:00 09:13:[address] [facility] 2021-05-29 2021-05-29 Outpatient [facility] [id number] Univers 07:45:00 07:45:[address] [facility] 2021-05-29 2021-05-29 Outpatient [facility] [id number] Univers 07:45:00 07:45:[address] [facility] 2021-05-10 2021-05-10 Patient [facility] 1.2.555.757 [id number] Univers 00:00:00 00:00:00 Secure Msg Eduardo Shukla SHEEP SHEARER 350.1.13.10 ity of [facility] 4.2.7.2.686 Maikel as MATERNAL [phone] Med ical & CHILD [address] [place] [address] 2021-05-09 2021-05-09 Outpatient [facility] [id number] Univers 10:45:00 10:45:[address] [facility] 2021-05-03 2021-05-03 Routine Jose Alfredo PRSETH 1.2.580.844 [id number] Univers 14:42:22 15:02:49 Eduardo Shukla SHEEP SHEARER 350.1.13.10 i ty of Visit REGIONAL 4.2.7.2.686 Maikel as MATERNAL [phone] [facility] & CHILD [address] [place] [address] 2021-05-03 2021-05-03 Outpatient R JOSE ALFREDO [facility] [id number] Univers 14:30:00 14:30:[address] [facility] 2021-04-29 2021-04-29 Routine Jose [facility] 1.2.841.565 [id number] Univers 13:30:11 14:15:22 Eduardo Shukla SHEEP SHEARER 350.1.13.10 i ty of Visit REGIONAL 4.2.7.2.686 Maikel as MATERNAL [phone] [facility] & CHILD [address] [place] [address] 2021-04-29 2021-04-29 Manugrapher Ultrasound, [facility] 1.2 .840.114 [id number] Univers 11:19:05 12:04:05 Visit Zacarias Perez SHEEP SHEARER 350.1.13.1 0 ity of REGIONAL 4.2.7.2.686 Maikel as MATERNAL [phone] [facility] & CHILD 369 [facility] 2021-04-29 2021-04-29 Outpatient P [facility] [id number] Univers 11:15:00 11:15:00 [facility] 2021-04-23 2021-04-23 Refalexander Cervantes [facility] 1.2.071.780 [id number] Univers 00:00:00 00:00:00 Gi SHEEP SHEARER 350.1.13.10 ity of REGIONAL 4.2.7.2.686 Maikel as MATERNAL [phone] Med ical & CHILD 130 [facility] 2021-04-22 2021-04-22 Refill Helen [facility] 1.2.532.695 [id number] Univers 00:00:00 00:00:00 Gi SHEEP SHEARER 350.1.13.10 ity of REGIONAL 4.2.7.2.686 Maikel as MATERNAL [phone] Med ical & CHILD [address] [place] [address] 2021-04-12 2021-04-12 Outpatient Ana MONTEIRO [facility] [id number] Univers 08:30:00 08:30:00 SANKETNDA ity o f [facility] 2021-03-29 2021-03-29 [facility] 1.2.953.619 [id number] Univers 08:08:50 09:20:52 Jun Fall SHEEP SHEARER 350.1.13.10 ity of Visit REGIONAL 4.2.7.2.686 Maikel as MATERNAL [phone] [facility] & CHILD [address] [place] [address] 2021-03-29 2021-03-29 Outpatient [facility] [id number] Univers 08:00:00 08:00:00 JUN enriquey o f [facility] 2021-03-18 2021-03-18 Outpatient [facility] [id number] Univers 10:15:00 10:15:[address] [facility] 2021-03-18 2021-03-18 Outpatient [facility] [id number] Univers 10:15:00 10:15:[address] [facility] 2021-03-18 2021-03-18 Telephone [facility] 1.2.840.114 [id number] Univers 00:00:00 00:00:00 Ryan SHEEP SHEARER 350.1.13.10 it y of REGIONAL 4.2.7.2.686 Maikel as MATERNAL [phone] Med ical & CHILD [address] [place] [address] 2021-03-01 2021-03-01 Telephone Helen [facility] 1.2.840.114 [id number] Univers 00:00:00 00:00:00 Gi SHEEP SHEARER 350.1.13.10 ity of REGIONAL 4.2.7.2.686 Maikel as MATERNAL [phone] [facility] ical & CHILD [address] [place] [address] 2021-02-19 2021-02-19 Routine Helen, [facility] 1.2.211.903 [id number] Univers 10:22:50 10:48:31 Gi SHEEP SHEARER 350.1.13.10 ity of Visit REGIONAL 4.2.7.2.686 Maikel as MATERNAL [phone] [facility] & [address] 2021-02-19 2021-02-19 Outpatient R HELEN [facility] [id number] Univers 10:15:00 10:48:[address] [facility] 2021-02-19 2021-02-19 [facility] [id number] Univers 10:15:00 10:15:00 [facility] 2021-02-06 2021-02-06 Nurse Ulices MONTES 1.2.840.114 [id number] Univers 00:00:00 00:00:00 Triage Katie smallwood 350.1.13.10 ity of [facility] 4.2.7.2.686 Maikel as [phone] [address] 2021-02-04 2021-02-04 Telephone 1, [facility] 1.2.352.853 [id number] Univers 00:00:00 00:00:00 Maikel-Rmchp SHEEP SHEARER 350.1.13.10 ity of Fc Room REGIONAL 4.2.7.2.686 Maikel as MATERNAL [phone] [facility] & [address] 2021-01-30 2021-01-30 Outpatient R ROSA [facility] [id number] Univers 09:45:00 09:45:00 JUN joshi [facility] 2021-01-30 2021-01-30 Manugrapher Ultrasound, [facility] 1.2 .840.114 [id number] Univers 08:39:57 09:31:50 Visit Tatyana Rodriguez SHEEP SHEARER 350.1.13.10 ity of REGIONAL 4.2.7.2.686 Maikel as MATERNAL [phone] Med ical & CHILD 369 [facility] 2021-01-30 2021-01-30 Outpatient P JENNIFER, [facility] [id number] Univers 08:30:00 09:31:50 [facility] 2021-01-30 2021-01-30 Outpatient P [facility] [id number] Univers 08:30:00 08:30:[address] [facility] 2021-01-30 2021-01-30 Abstract [facility] 1.2.840.114 [id number] Univers 00:00:00 00:00:00 Josue Perez SHEEP SHEARER 350.1.13.10 ity of REGIONAL 4.2.7.2.686 Maikel as MATERNAL [phone] [facility] ical & CHILD 107 [facility] 2021-01-25 2021-01-25 Outpatient R CAYETANO [facility] [id number] Univers 08:45:00 08:45:00 JOSUE suarez o f [facility] 2021-01-21 2021-01-21 Office [facility] 1.2.840.114 [id number] Univers 15:04:16 15:52:56 Visit Marco Cortez Rudyard 350.1.13.10 ity [facility] [place].2.7.2.[phone] [place] [address] [facility] 2021-01-21 2021-01-21 Routine [facility] 1.2.531.858 [id number] Univers 09:04:25 09:54:43 Gi SHEEP SHEARER 350.1.13.10 ity of Visit [facility] 4.2.7.2.686 Maikel as MATERNAL [phone] [facility] ical & CHILD 130 [facility] 2021-01-21 2021-01-21 Outpatient R HLEEN [facility] [id number] Univers 08:30:00 08:30:[address] [facility] 2021-01-21 2021-01-21 Telephone [facility] 1.2.840.114 [id number] Univers 00:00:00 00:00:00 Gi SHEEP SHEARER 350.1.13.10 ity of REGIONAL 4.2.7.2.686 Maikel as MATERNAL [phone] [facility] & CHILD [address] [place] [address] 2021-01-21 2021-01-21 Telephone Nicoleamerico [facility] 1.2.840.114 [id number] Univers 00:00:00 00:00:00 Gi SHEEP SHEARER 350.1.13.10 ity of REGIONAL 4.2.7.2.686 Maikel as MATERNAL [phone] [facility] & CHILD [address] [place] [address] 2021-01-17 2021-01-17 Outpatient R [facility] [id number] Univers 12:45:00 12:45:[address] [facility] 2021-01-17 2021-01-17 Outpatient R STU [facility] [id number] Univers 12:45:00 12:37:[address] [facility] 2021-01-03 2021-01-03 Routine [facility] 1.2.840.114 [id number] Univers 14:58:11 15:44:24 Sanketnda R SHEEP SHEARER 350.1.13.10 ity of Visit REGIONAL 4.2.7.2.686 Maikel as MATERNAL [phone] [facility] & [address] 2021-01-03 2021-01-03 [facility] [id number] Univers 15:00:00 15:00:00 ROSHUNDA ity o f [facility] 2021-01-02 2021-01-02 Telephone [facility] 1.2.576.499 [id number] Univers 00:00:00 00:00:00 Sanketnda R SHEEP SHEARER 350.1.13.10 ity of REGIONAL 4.2.7.2.686 Maikel as MATERNAL [phone] [facility] & CHILD [address] [place] [address] 2020-12-28 2020-12-28 Outpatient [facility] [id number] Univers 08:30:00 08:30:00 ROSHUNDA ity o f [facility] 2020-12-20 2020-12-20 Routine Cayetano [facility] 1.2.840.114 [id number] Univers 10:59:37 11:27:33 Sanketndmarianne R SHEEP SHEARER 350.1.13.10 ity of Visit REGIONAL 4.2.7.2.686 Maikel as MATERNAL [phone] [facility] & CHILD [address] [place] [address] 2020-12-20 2020-12-20 Outpatient R CAYETANO [facility] [id number] Univers 11:00:00 11:00:00 ROSCHRISTINANDA itjeffrey o f [facility] 2020-12-03 2020-12-03 Outpatient R [facility] [id number] Univers 14:00:00 14:00:00 ity of [facility] 2020-11-19 2020-11-19 Manugrapher Ultrasound, [facility] 1.2 .840.114 [id number] Univers 09:00:39 09:30:39 Visit Josue Monteiro R SHEEP SHEARER 350.1.13.10 ity of Tatyana Rodriguez REGIONAL 4.2.7.2.686 [place] MATERNAL [phone] [facility] & CHILD [address] [place] [address] 2020-11-19 2020-11-19 Routine Cayetano [facility] 1.2.840.114 [id number] Univers 08:20:44 09:00:13 Josue R SHEEP SHEARER 350.1.13.10 ity of Visit REGIONAL 4.2.7.2.686 Maikel as MATERNAL [phone] [facility] & CHILD [address] [place] [address] 2020-11-19 2020-11-19 Outpatient R CAYETANO [facility] [id number] Univers 08:15:00 08:15:00 SANKETNDA daniela o adi [facility] 2020-11-19 2020-11-19 Abstract Cayetano [facility] 1.2.840.114 [id number] Univers 00:00:00 00:00:00 Josue R SHEEP SHEARER 350.1.13.10 ity of REGIONAL 4.2.7.2.686 Maikel as MATERNAL [phone] Med ical & [address] 2020-11-13 2020-11-13 Outpatient P [facility] [id number] Univers 08:00:00 08:00:[address] [facility] 2020-11-12 2020-11-12 Outpatient R [facility] [id number] Univers 08:00:00 08:00:[address] [facility] 2020-11-07 2020-11-07 Patient Doctor JYOTI 1.2.840.114 [id number] Univers 00:00:00 00:00:00 Secure Msg Unassigned, KRISSY 350.1.13.10 ity of [place] [facility] 4.2.7.2.686 Maikel as [phone] [address] 2020-11-05 2020-11-05 Outpatient R JENNIFER [facility] [id number] Univers 14:15:00 14:15:[address] [facility] 2020-11-05 2020-11-05 Telemedici Faculty, Darrel [facility] 1.2.840.114 [id number] Univers 07:49:36 12:34:40 ne Visit Tatyana Rodriguez Ana SHEEP SHEARER 350.1.13.10 ity of REGIONAL 4.2.7.2.686 Maikel as MATERNAL [phone] [address] 2020-10-26 2020-10-26 Outpatient R ROSA [facility] [id number] Univers 09:00:00 09:00:00 JNU suarez o f [facility] 2020-10-22 2020-10-22 Mackenzie [facility] 1.2.840.114 [id number] Univers 09:27:57 10:42:39 Josue R SHEEP SHEARER 350.1.13.10 ity of Visit [facility] 4.2.7.2.686 Maikel as MATERNAL [phone] [address] 2020-10-22 2020-10-22 Outpatient R CAYETANO [facility] [id number] Univers 08:30:00 08:30:00 JOSUE ity o f [facility] 2020-10-22 2020-10-22 Orders Doctor JYOTI 1.2.840.114 [id number] Univers 00:00:00 00:00:00 Only Unassigned, KRISSY 350.1.13.10 ity of [place] [facility] 4.2.7.2.686 Maikel as [phone] [address] 2020-10-12 2020-10-12 Out[facility] [id number] Univers 08:15:00 08:15:00 JUN suarez o [facility] 2020-10-03 2020-10-03 Orders Doctor JYOTI 1.2.840.114 [id number] Univers 00:00:00 00:00:00 Only Unassigned, KRISSY 350.1.13.10 [facility] 4.2.7.2.686 Maikel as [phone] [address] 2020-09-28 2020-09-28 Office [facility] 1.2.064.608 [id number] Univers 15:41:59 16:31:20 Visit Jun Fall SHEEP SHEARER 350.1.13.10 ity of [facility] 4.2.7.2.686 Maikel as MATERNAL [phone] Med ical & CHILD [address] [place] [address] 2020-09-28 2020-09-28 Outpatient [facility] [id number] Univers 15:15:00 15:15:00 JUN suarez o [facility] 2020-09-28 2020-09-28 Outpatient [facility] [id number] Univers 13:15:00 13:15:00 JUN suarez o f [facility] 2020-09-21 2020-09-21 Office Juan C, [facility] Resident UNIVERSIT 1.2.8 40.114 [id number] Univers 07:47:45 08:36:41 Visit Jazzy Antonio [facility] 350.1.13.10 ity of [facility] 4.2.7.2.[place] [phone] [facility] [address] 2020-09-21 2020-09-21 Outpatient R [facility] [id number] Univers 08:00:00 08:00:00 ity of [facility] 2020-09-06 2020-09-06 Outpatient R [facility] [id number] Univers 15:30:00 15:30:[address] [facility] 2020-09-03 2020-09-03 Outpatient R ROSA [facility] [id number] Univers 16:00:00 16:00:00 JUN babin [facility] 2020-08-31 2020-08-31 Office [facility] 1.2.752.134 [id number] Univers 10:54:52 11:36:38 Visit Jun Fall SHEEP SHEARER 350.1.13.10 ity of [facility] 4.2.7.2.686 Maikel as MATERNAL [phone] Med ical & CHILD [address] [place] [address] 2020-08-31 2020-08-31 Outpatient R ROSA [facility] [id number] Univers 10:30:00 10:30:00 JUN babin [facility] 2020-08-31 2020-08-31 Orders Doctor JYOTI 1.2.840.114 [id number] Univers 00:00:00 00:00:00 Only Unassigned, KRISSY 350.1.13.10 ity of [place] [facility] 4.2.7.2.686 Maikel as [phone] [address] 2020-08-02 2020-08-02 Outpatient R BOUCHRA PASTRANA [facility] [id number] Univers 09:30:00 09:30:[address] [facility] 2020-08-02 2020-08-02 Outpatient R BOUCHRA PASTRANA [facility] [id number] Univers 09:30:00 09:30:[address] [facility] 2020-06-15 2020-06-15 Outpatient R ELVIA [facility] [id number] Univers 16:40:00 16:40:00 CLAUDIO suarez o [facility] 2020-05-02 2020-05-02 Telephone Helen [facility] 1.2.840.114 [id number] Univers 00:00:00 00:00:00 Gi SHEEP SHEARER 350.1.13.10 ity of REGIONAL 4.2.7.2.686 Maikel as MATERNAL [phone] Med ical & CHILD 130 [facility] 2020-02-15 2020-02-15 Outpatient [id number] [facility] 11:00:00 11:00:00 Edesiri 83 [facility] 2020-02-06 2020-02-06 Telephone Floravaunt, [facility] 1.2.840.114 [id number] [facility] 00:00:00 00:00:00 Jonathanuntander SHEEP SHEARER 350.1.13.10 ity of REGIONAL 4.2.7.2.686 Maikel as MATERNAL [phone] Med ical & CHILD 130 [facility] 2020-01-18 2020-01-18 Refill Doctor [facility] 1.2.840.114 [id number] 00:00:00 00:00:00 Unassigned, SHEEP SHEARER 350.1.13.10 [place] REGIONAL 4.2.7.2.686 MATERNAL [phone] & CHILD 130 [facility] 2020-01-18 2020-01-18 Refill Doctor [facility] 1.2.840.114 [id number] Univers 00:00:00 00:00:00 Unassigned, SHEEP SHEARER 350.1.13.10 ity of [place] REGIONAL 4.2.7.2.686 Maikel as MATERNAL [phone] Med ical & CHILD 130 [facility] 2019-11-11 2019-11-11 Telephone Sarvaunt, [facility] 1.2.840.114 [id number] 00:00:00 00:00:00 Jonathanuntrell SHEEP SHEARER 350.1.13.10 REGIONAL 4.2.7.2.686 MATERNAL [phone] & CHILD 130 [facility] 2019-11-11 2019-11-11 Telephone [place], [facility] 1.2.840.114 [id number] Univers 00:00:00 00:00:00 Jonathanuntrell SHEEP SHEARER 350.1.13.10 ity of REGIONAL 4.2.7.2.686 Maikel as MATERNAL [phone] Med ical & CHILD 130 [facility] 2019-11-09 2019-11-09 [facility] 1.2.840.114 [id number] 00:00:00 00:00:00 Gi SHEEP SHEARER 350.1.13.10 REGIONAL 4.2.7.2.686 MATERNAL [phone] & CHILD 130 [facility] 2019-11-09 2019-11-09 Telephone [facility] 1.2.840.114 [id number] Univers 00:00:00 00:00:00 Gi SHEEP SHEARER 350.1.13.10 ity of REGIONAL 4.2.7.2.686 Maikel as MATERNAL [id number] Med ical & CHILD 130 [facility] 2019-11-08 2019-11-08 Telephone [facility] 1.2.840.114 [id number] 00:00:00 00:00:00 Gi SHEEP SHEARER 350.1.13.10 REGIONAL 4.2.7.2.686 MATERNAL [id number] & CHILD 130 [facility] 2019-11-08 2019-11-08 Telephone [facility] 1.2.840.114 [id number] Univers 00:00:00 00:00:00 Gi SHEEP SHEARER 350.1.13.10 ity of REGIONAL 4.2.7.2.686 Maikel as MATERNAL [phone] Med ical & CHILD 130 [facility] 2019-10-19 2019-10-19 Outpatient R UNKNOWN, [facility] [id number] Univers 17:00:00 17:00:00 ATTENDING ity of [facility] 2019-10-19 2019-10-19 Telephone [facility] 1.2.840.114 [id number] 00:00:00 00:00:00 Gi SHEEP SHEARER 350.1.13.10 REGIONAL 4.2.7.2.686 MATERNAL [id number] & CHILD 130 [facility] 2019-10-19 2019-10-19 Patient Doctor [facility] 1.2.840.114 [id number] 00:00:00 00:00:00 Secure Msg Unassigned, SHEEP SHEARER 350.1.13.10 [place] REGIONAL 4.2.7.2.686 MATERNAL [id number] & CHILD [address] [place] [address] 2019-10-19 2019-10-19 Telephone Helen [facility] 1.2.840.114 [id number] Univers 00:00:00 00:00:00 Jonathanuntrell SHEEP SHEARER 350.1.13.10 ity of REGIONAL 4.2.7.2.686 Maikel as MATERNAL [phone] Med ical & CHILD [address] [place] [address] 2019-10-19 2019-10-19 Patient Doctor [place] 1.2.840.114 [id number] Univers 00:00:00 00:00:00 Secure Msg Unassigned, SHEEP SHEARER 350.1.13.10 ity of [place] REGIONAL 4.2.7.2.686 Maikel as MATERNAL [phone] [facility] ical & CHILD [address] [place] [address] 2019-07-26 2019-07-26 Patient Doctor [place] 1.2.840.114 [id number] 00:00:00 00:00:00 Secure Msg Unassigned, SPECIALTY 350.1.13.10 [place] CARE 4.2.7.2.686 CENTER AT [phone] EMANUEL Shivani [facility] 2019-07-26 2019-07-26 Patient Doctor [facility] 1.2.840.114 [id number] Univers 00:00:00 00:00:00 Secure Msg Unassigned, SPECIALTY 350.1.13.10 ity of [place] CARE [place]2.7.2.[place] [phone] Sc jordanva EMANUEL Shivani [facility] 2019-03-18 2019-03-18 Prep For [facility] 1.2.840.114 [id number] 00:00:00 00:00:00 Surgery ise, SPECIALTY 350.1.13.10 [place] CARE 4.2.7.2.686 CENTER AT [phone] EMANUEL Cruz[address] [place] [address] 2019-03-18 2019-03-18 Prep For [facility] 1.2.840.114 [id number] [facility] 00:00:00 00:00:00 Surgery ise, SPECIALTY 350.1.13.10 ity of [place].2.[place] AT [phone] Sc val Cruz[address] [place] [address] 2019-03-16 2019-03-16 Telephone [facility] 1.2.840.114 [id number] Univers 00:00:00 00:00:00 ise, SPECIALTY 350.1.13.10 ity of [place] AT [phone] Sc val CASTELLANOS [address] [place] [address] 2019-03-14 2019-03-14 Telephone [facility] 1.2.840.114 [id number] 00:00:00 00:00:00 ise, SPECIALTY 350.1.13.10 [place] CARE 4.2.7.2.686 CENTER AT [phone] PETTYJeffrey [address] [place] [address] 2019-03-14 2019-03-14 Telephone [facility] 1.2.840.114 [id number] Univers 00:00:00 00:00:00 ise, SPECIALTY 350.1.13.10 ity of [place].2.[place] AT [phone] Sc val CASTELLANOS [address] [place] [address] 2019-03-11 2019-03-11 Refill Denys [facility] 1.2.840.114 [id number] Univers 00:00:00 00:00:00 Bella Zhao SHEEP SHEARER 350.1.13.10 ity of REGIONAL 4.2.7.2.686 Maikel as MATERNAL [phone] Med ical & CHILD [address] [place] [address] 2019-03-09 2019-03-09 Dee Dee Mcfarlane [facility] 1.2.905.207 [id number] Univers 00:00:00 00:00:00 Bella L SHEEP SHEARER 350.1.13.10 ity of REGIONAL 4.2.7.2.686 Maikel as MATERNAL [phone] Med ical & CHILD [address] [place] [address] 2019-02-18 2019-02-18 Manugrapher Vls-Lab [facility] 1.2.840.114 [id number] Univers 14:28:39 14:43:39 Visit Nidia Abdullahi SPECIALTY 350. 1.13.10 [place] [phone] Sc val CASTELLANOS 353 [facility] 2019-02-18 2019-02-18 Office LamNatalie [facility] 1.2.840.114 [id number] [facility] 13:28:59 14:25:17 Visit dell, SPECIALTY 350.1.13.10 ity of [facility] [place] [phone] Sc jordanmain CASTELLANOS 072 [facility] 2019-02-15 2019-02-15 Office Denys Bella Pavel [facility] 1.2.840.1 14 [id number] [facility] 13:22:48 14:41:54 Visit Gi Cervantes SHEEP SHEARER 350.1.13. 10 ity of [facility] 4.2.7.2.686 Maikel as MATERNAL [phone] Med ical & CHILD [address] [place] [address] 2019-02-15 2019-02-15 Orders Doctor JYOTI 1.2.840.114 [id number] Univers 00:00:00 00:00:00 Only Unassigned, KRISSY 350.1.13.10 ity of [place] [facility] 4.2.7.2.686 Maikel as [phone] [address] Results Test Description Test Time Test Comments Results Result [facility] e Comments - US TRANSVAGINAL 2020-02-15 Name: BENOITNELSON NON OB 11:41:00 [facility] Bennett Buck : 1995 Age/S: 24 / F [address] [place] [address] Unit #: [id number] Loc: [place] [address] Phys: Sai Morris MD Acct: [id number] Dis Date: Status: REG CLI PHONE #: [phone] Exam Date: 02/15/2020 1130 FAX #: [phone] Reason: PELVIC PAIN EXAMS: CPT CODE: [id number] [place] [address] PROCEDURE: PELVIC ULTRASOUND INDICATION: Pelvic pain COMPARISON: None. TECHNIQUE: Grayscale, color and Doppler transabdominal and transvaginal imaging of the pelvis was performed with standard technique. Transvaginal ultrasound is obtained for further evaluation of the endometrium and adnexal regions. FINDINGS: UTERUS: 7.4 x 3.5 x 5.4 cm. Endometrium is 8 mm thick. There is a linear echogenic IUD in the endometrium. RIGHT OVARY: 38 x 30 x 22 mm. A contains an 18 mm dominant follicle. Normal blood flow on Doppler. LEFT OVARY: 30 x 25 x 16 mm. Normal blood flow on Doppler. It contain small follicles. BLADDER: Unremarkable. Comments: No adnexal masses. No free intraperitoneal fluid. IMPRESSION: 1. IUD in place in the endometrium. 2. Dominant follicle right ovary, 18 mm SL: [id number] at 1141 Reported and signed by: Maximino Aguilar M.D. CC: Sai Morris MD Technologist: Vidhya Azul RDMS(OB)(AB) Trnscb Date/Time: 02/15/2020 (1141) t.ETG Orig Print D/T: S: 02/15/2020 (1148) Probe: [id number] PAGE 1 Signed Report - US PELVIS 2020-02-15 Name: NELSON LABOY COMPLETE 11:41:00 [facility] : 1995 Age/S: 24 / F [address] [place] [address] Unit #: [id number] Loc: [place] [address] Phys: Sai Morris MD Acct: [id number] Dis Date: Status: REG CLI PHONE #: [phone] Exam Date: 02/15/2020 1130 FAX #: [phone] Reason: PELVIC PAIN EXAMS: CPT CODE: [id number] US PELVIS COMPLETE [id number] PROCEDURE: PELVIC ULTRASOUND INDICATION: Pelvic pain COMPARISON: None. TECHNIQUE: Grayscale, color and Doppler transabdominal and transvaginal imaging of the pelvis was performed with standard technique. Transvaginal ultrasound is obtained for further evaluation of the endometrium and adnexal regions. FINDINGS: UTERUS: 7.4 x 3.5 x 5.4 cm. Endometrium is 8 mm thick. There is a linear echogenic IUD in the endometrium. RIGHT OVARY: 38 x 30 x 22 mm. A contains an 18 mm dominant follicle. Normal blood flow on Doppler. LEFT OVARY: 30 x 25 x 16 mm. Normal blood flow on Doppler. It contain small follicles. BLADDER: Unremarkable. Comments: No adnexal masses. No free intraperitoneal fluid. IMPRESSION: 1. IUD in place in the endometrium. 2. Dominant follicle right ovary, 18 mm SL: [id number] at 1141 Reported and signed by: Maximino Aguilar M.D. CC: Sai Morris MD Technologist: Vidhya Azul RDMS(OB)(AB) Trnscb Date/Time: 02/15/2020 (1141) [email or web address] Orig Print D/T: S: 02/15/2020 (0933) Probe: PAGE 1 Signed Report
[2022-06-11 22:46] LABS: Urine Blood Negative (Negative); Urine Glucose Negative (Negative); Urine Protein Negative (Negative); Urine Specific Gravity 1.015 (1.005-1.030)
[2022-06-11] MEDS ORDERED: NA CHLORIDE 0.9% 1,000 ML ONE (22:51)
[2022-06-11] MEDS ORDERED: ONDANSETRON 4 MG/2 ML VIAL ONE (22:51)
[2022-06-11 22:58] LABS: Absolute Lymphocytes (CBC) 2.6 K/uL (0.7-4.9); Hematocrit 41.9 % (36.0-45.0); Lymphocytes % 24.8 % (15.3-44.8); MCV 84.8 fL (80-100); MPV 7.6 fL (7.6-11.3); RBC Red Blood Cell Count 4.94 M/uL (3.86-4.86)
--- NOTE | 2022-06-11 23:20 | RAD REPORT ---
EXAM DESCRIPTION: CTAbdomen Pelvis W Contrast - 06/11/2022 10:56 pm CLINICAL HISTORY: left sided abd pain, vomiting, diarrhea COMPARISON: No comparisons TECHNIQUE: CT of the abdomen and pelvis was performed with IV contrast. All CT scans are performed using dose optimization technique as appropriate and may include automated exposure control or mA/KV adjustment according to patient size. FINDINGS: Lower chest: No acute abnormality. Liver: No acute abnormality or suspicious lesions. Biliary: No biliary ductal dilatation. Stomach: No significant focal abnormality. Duodenum: No significant focal abnormality. Pancreas: No significant abnormality. Spleen: No significant abnormality. Adrenal: No suspicious lesions. Kidney/ureter: No hydronephrosis. No renal calculi. Retroperitoneum: No retroperitoneal adenopathy. Vascular: No aneurysm. Bowel: 18 mm linear foreign body in the cecum. Normal appendix. Mild colonic wall thickening involvin g the transverse colon, descending colon, sigmoid colon, and rectum. Peritoneum: No ascites or free air. Bladder: Grossly unremarkable. Reproductive: No adnexal masses. Bones: No acute fracture. Other: n/a IMPRESSION: Colonic wall thickening likely reflecting a colitis. Foreign body in the cecum is presum ably ingested and may be of little clinical significance.
[2022-06-11] MEDS ORDERED: CIPROFLOXACIN 400mg IV 400 MG/200 ML BAG IV ONE (23:40)
[2022-06-11] MEDS ORDERED: METRONIDAZOLE 500mg IVPB 500 MG/100 ML BAG IV ONE (23:40)
[2022-06-11 23:48] LABS: Urine Specific Gravity/Preg 1.015 (1.005-1.030)
[2022-06-11] MEDS ORDERED: PROMETHAZINE INJ 25 MG/ML AMP ONE (23:49)
[2022-06-12 00:07] LABS: Albumin 4.1 g/dL (3.4-5.0); Bilirubin Total 0.3 mg/dL (0.2-1.0); Potassium 3.6 mmol/L (3.5-5.1); Protein, Total 7.5 g/dL (6.4-8.2)
--- NOTE | 2022-06-12 00:24 | ER ---
Nurse's Notes [facility] Name: Mellisa Berg Age: 27 yrs Sex: Female : 1995 Arrival Date: 06/11/2022 Time: 21:52 Bed 8 Private MD: Diagnosis: Indeterminate colitis Presentation: 06/11 22:03 Chief complaint: Patient states: My stomach hurts on the left side. kind of like a kd3 cramp. and I am very nauseous and I have been vomiting. The only surgery is that I had a polyp removed. they did not find chrons or anything. I have also had diarrhea. Ebola Screen: No symptoms or risks identified at this time. Risk Assessment: Do you want to hurt yourself or someone else? Patient reports no desire to harm self or others. Onset of symptoms was June 11, 2022. 22:03 Method Of Arrival: Ambulatory kd3 22:03 Acuity: BRITTNI 3 kd3 22:07 Coronavirus screen: Vaccine status: Patient reports being unvaccinated. kd3 22:13 Initial Sepsis Screen: Does the patient meet any 2 criteria? No. Patient's initial kd3 sepsis screen is negative. Does the patient have a suspected source of infection? No. Patient's initial sepsis screen is negative. Triage Assessment: 22:06 General: Appears uncomfortable, Behavior is calm, cooperative. Pain: Complains of pain kd3 in left lower quadrant. Neuro: Level of Consciousness is awake, alert, obeys commands, Oriented to person, place, time, situation. Cardiovascular: Patient's skin is warm and dry. Respiratory: Airway is patent Trachea midline Respiratory effort is even, unlabored, Respiratory pattern is regular, symmetrical. GI: Abdomen is non-distended, Abd is soft X 4 quads Abd is non tender in left lower quadrant. LOGISTICS MANAGER: 22:06 LMP 05/2022 kd3 Historical: - Allergies: 22:10 No Known Allergies; kd3 - Home Meds: 22:10 None [Active]; kd3 - PMHx: 22:10 None; kd3 - Immunization history:: Adult Immunizations up to date. - Social history:: Smoking status: Patient/guardian denies using tobacco. - Family history:: not pertinent. - Hospitalizations: : No recent hospitalization is reported. Screenin:13 Abuse screen: Denies threats or abuse. Denies injuries from another. Nutritional kd3 screening: No deficits noted. Tuberculosis screening: No symptoms or risk factors identified. Fall Risk None identified. Assessment: 06/12 00:45 Reassessment: discharge pending medications administration completion. aa9 00:52 Reassessment: No changes from previously documented assessment. Patient and/or family vc1 updated on plan of care and expected duration. Pain level reassessed. Vital Signs: 06/11 22:12 BP 124 / 89; Pulse 84; Resp 19; Temp 98.3(O); Pulse Ox 98% on R/A; Weight 87.09 kg; kd3 Height 5 ft. 5 in. (165.10 cm); Pain 5/10; 23:20 BP 116 / 74; Pulse 65; Resp 18; Pulse Ox 98% ; vc1 06/12 00:52 BP 106 / 65; Pulse 64; Resp 16; Pulse Ox 99% ; vc1 06/11 22:12 Body Mass Index 31.95 (87.09 kg, 165.10 cm) kd3 ED Course: 06/11 21:52 Patient arrived in ED. ja2 22:00 Darius Herrera MD is Attending Physician. rn 22:06 Triage completed. kd3 22:06 Arm band placed on right wrist. kd3 22:30 Debra Barahona RN is Primary Nurse. vc1 22:35 Inserted saline lock: 20 gauge in right antecubital area, using aseptic technique. vc1 Blood collected. 22:57 CT Abd/Pelvis - IV Contrast Only In Process Unspecified. EDMS 06/12 00:23 Kareem Moses MD is Referral Physician. rn 01:09 No provider procedures requiring assistance completed. IV discontinued, intact, vc1 bleeding controlled, No redness/swelling at site. Pressure dressing applied. Administered Medications: 06/11 23:19 Drug: NS 0.9% 1000 ml Route: IV; Rate: 1 bolus; Site: right antecubital; vc1 23:19 Drug: Zofran (Ondansetron) 4 mg Route: IVP; Site: right antecubital; vc1 06/12 00:01 Drug: Cipro (ciprofloxacin) 400 mg Volume: 200 ml; Route: IVPB; Infused Over: 60 mins; vc1 Site: right antecubital; 00:01 Drug: Flagyl (metroNIDAZOLE) 500 mg Volume: 100 ml; Route: IVPB; Rate: 200 ml/hr; vc1 Infused Over: 30 mins; Site: right antecubital; Medication: 01:09 VIS not applicable for this client. vc1 Outcome: 00:24 Discharge ordered by . rn 01:09 Discharged to home ambulatory. vc1 01:09 Condition: good 01:09 Discharge instructions given to patient, Instructed on discharge instructions, follow up and referral plans. medication usage, Demonstrated understanding of instructions, follow-up care, medications, Prescriptions given X 4. 01:09 Patient left the ED. vc1 Signatures: Dispatcher [employer] EDMS Darius Herrera MD MD rn Alexander, Jessica ja2 Doucette, Kyli RN RN kd3 Debra Barahona RN RN vc1 Josi Knight RN RN aa9
--- NOTE | 2022-06-12 00:24 | EDPHYS ---
Physician Documentation [facility] Name: Mellisa Berg Age: 27 yrs Sex: Female : 1995 Arrival Date: 06/11/2022 Time: 21:52 Bed 8 Private MD: ED Physician Darius Herrera HPI: 06/11 23:44 This 27 yrs old Female presents to ER via Ambulatory with complaints of Abdominal Pain, rn Flank Pain, Nausea, Vomiting. 23:44 The patient presents with abdominal pain in the lower abdomen. Onset: The rn symptoms/episode began/occurred 1 month(s) ago. The symptoms do not radiate. Associated signs and symptoms: Pertinent positives: nausea and vomiting, diarrhea, Pertinent negatives: blood in stools, fever, hematuria, vaginal discharge. The symptoms are described as crampy, intermittent, sharp. Modifying factors: The symptoms are alleviated by nothing, the symptoms are aggravated by touching the area, vomiting. Severity of pain: At its worst the pain was moderate in the emergency department the pain has improved. The patient has experienced similar episodes in the past. The patient has not recently seen a physician. Pt reports abd pain for 1 month, has seen GI before with colonoscopy and biopsies that were negative. REports vomiting and diarrhea for 1 month. Smokes marijuana. No fever. NO blood in stool. . 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 - Social history:: Smoking status: Patient/guardian denies using tobacco. - Family history:: not pertinent. - Hospitalizations: : No recent hospitalization is reported. ROS: 23:44 Constitutional: Negative for fever, chills, and weight loss, Eyes: Negative for injury, rn pain, redness, and discharge, Neck: Negative for injury, pain, and swelling, Cardiovascular: Negative for chest pain, palpitations, and edema, Respiratory: Negative for shortness of breath, cough, wheezing, and pleuritic chest pain, Abdomen/GI: + abd pain, + nausea/vomiting/diarrhea MS/Extremity: Negative for injury and deformity, Skin: Negative for injury, rash, and discoloration, Neuro: Negative for headache, weakness, numbness, tingling, and seizure. Exam: 23:44 Constitutional: This is a well developed, well nourished patient who is awake, alert, rn and in no acute distress. Head/Face: Normocephalic, atraumatic. Cardiovascular: Regular rate and rhythm. No pulse deficits. Respiratory: No increased work of breathing, no retractions or nasal flaring. Abdomen/GI: soft, mild pain lower abdomen, no distension Skin: Warm, dry MS/ Extremity: Pulses equal, no cyanosis. Neuro: Awake and alert, GCS 15 Vital Signs: 22:12 BP 124 / 89; Pulse 84; Resp 19; Temp 98.3(O); Pulse Ox 98% on R/A; Weight 87.09 kg; kd3 Height 5 ft. 5 in. (165.10 cm); Pain 5/10; 23:20 BP 116 / 74; Pulse 65; Resp 18; Pulse Ox 98% ; vc1 06/12 00:52 BP 106 / 65; Pulse 64; Resp 16; Pulse Ox 99% ; vc1 06/11 22:12 Body Mass Index 31.95 (87.09 kg, 165.10 cm) kd3 MDM: 06/11 22:00 Patient medically screened. rn 06/12 00:20 Differential diagnosis: appendicitis, bowel obstruction, diverticulitis, gastritis, rn non-specific abd pain, colitis, IBD. Data reviewed: vital signs, nurses notes, lab test result(s), radiologic studies, CT scan, and as a result, I will discharge patient. Counseling: I had a detailed discussion with the patient and/or guardian regarding: the historical points, exam findings, and any diagnostic results supporting the discharge/admit diagnosis, lab results, radiology results, the need for outpatient follow up, to return to the emergency department if symptoms worsen or persist or if there are any questions or concerns that arise at home. Admission orders: after a detailed discussion of the patient's condition and case, the admit orders are written by me. Special discussion: I discussed with the patient/guardian in detail that at this point there is no indication for admission to the hospital. It is understood, however, that if the symptoms persist or worsen the patient needs to return immediately for re-evaluation. Based on the history and exam findings, there is no indication for further emergent testing or inpatient evaluation. I discussed with the patient/guardian the need to see the foreign exchange trader for further evaluation of the symptoms. ED course: Had long discussion with patient, will treat with abx, but told her most likely needs GI again and might be IBD. . 06/11 22:11 Order name: CBC with Diff; Complete Time: 23:24 rn 06/11 22:11 Order name: CMP; Complete Time: 00:20 rn 06/11 22:11 Order name: Lipase; Complete Time: 00:20 rn 06/11 22:46 Order name: Urine Dipstick-Ancillary; Complete Time: 23:24 EDMS 06/11 23:13 Order name: CREATININE WHOLE BLOOD; Complete Time: 23:24 EDMS 06/11 23:33 Order name: Urine --Ancillary (enter results); Complete Time: 00:20 wm 06/11 22:11 Order name: CT Abd/Pelvis - IV Contrast Only; Complete Time: 23:24 rn 06/11 22:11 Order name: IV Saline Lock; Complete Time: 22:40 rn 06/11 22:11 Order name: Labs collected and sent; Complete Time: 22:40 rn 06/11 22:11 Order name: Urine Dipstick-Ancillary (obtain specimen); Complete Time: 22:40 rn 06/11 22:11 Order name: Urine Test (obtain specimen); Complete Time: 22:40 rn Administered Medications: 06/11 23:19 Drug: NS 0.9% 1000 ml Route: IV; Rate: 1 bolus; Site: right antecubital; vc1 23:19 Drug: Zofran (Ondansetron) 4 mg Route: IVP; Site: right antecubital; vc1 06/12 00:01 Drug: Cipro (ciprofloxacin) 400 mg Volume: 200 ml; Route: IVPB; Infused Over: 60 mins; vc1 Site: right antecubital; 00:01 Drug: Flagyl (metroNIDAZOLE) 500 mg Volume: 100 ml; Route: IVPB; Rate: 200 ml/hr; vc1 Infused Over: 30 mins; Site: right antecubital; Disposition Summary: 06/12/22 00:24 Discharge Ordered Location: Home rn Problem: an ongoing problem rn Symptoms: have improved rn Condition: Stable rn Diagnosis - Indeterminate colitis rn Followup: rn - With: Kareem Moses MD - When: As needed - Reason: Recheck today's complaints, Re-evaluation by your physician Discharge Instructions: - Discharge Summary Sheet rn - Colitis rn Forms: - Medication Reconciliation Form rn - Thank You Letter rn - 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 - Prescription Opioid Use rn - Work release form aa9 Prescriptions: - ondansetron 4 mg Oral tablet,disintegrating - take 1 tablet by ORAL route every 6-8 hours As needed; 15 tablet; Refills: 0, rn Product Selection Permitted - Flagyl 500 mg Oral Tablet - take 1 tablet by ORAL route every 8 hours for 10 days; 30 tablet; Refills: 0, rn Product Selection Permitted - Cipro 500 mg Oral Tablet - take 1 tablet by ORAL route every 12 hours for 10 days; 20 tablet; Refills: 0, rn Product Selection Permitted - Tramadol 50 mg Oral Tablet - take 1 tablet by ORAL route every 8 hours as needed; 12 tablet; Refills: 0, rn Product Selection Permitted Signatures: Dispatcher [employer] Darius Culp MD MD rn Doucette, Kyli RN RN kd3 Debra Barahona RN RN vc1
[2022-06-12 01:35] VITALS: TEMP 98.3
[2022-06-12 01:38] VITALS: BP 106/65; O2SAT 99
== END 2022-06-12 01:09 | disposition home or self-care (01) ==
LOC: ER 21:24
DX: K52.3 Indeterminate colitis (principal)
CPT/HCPCS: 85025; 36415; 81025; 82565; 81003; 83690; 80053; 74177; 96375; 96374; 99284; Q9967; J2550; J7030; J2405; J0744

== ENCOUNTER 2022-12-17 10:24 | Emergency (ER) | payer OTHER ==
[2022-12-17 11:14] LABS: Absolute Lymphocytes (CBC) 2.5 K/uL (0.7-4.9); Hematocrit 42.6 % (36.0-45.0); Lymphocytes % 28.1 % (15.3-44.8); MCV 85.4 fL (80-100); MPV 7.4 fL (7.6-11.3); RBC Red Blood Cell Count 4.99 M/uL (3.86-4.86)
[2022-12-17 11:15] LABS: Specific Gravity 1.011 (1.005-1.030); Urine Bilirubin NEGATIVE (Negative); Urine Blood Negative (Negative); Urine Clarity Clear (Clear); Urine Color Light-Yellow (Yellow); Urine Glucose NEGATIVE (Negative); Urine Protein NEGATIVE (Negative); Urine Urobilinogen Normal (Normal); Urine pH 7.5 (5.0-7.0)
[2022-12-17 11:34] LABS: Albumin 4.1 g/dL (3.4-5.0); Bilirubin Total 0.4 mg/dL (0.2-1.0); Potassium 3.6 mEq/L (3.5-5.1); Protein, Total 7.8 g/dL (6.4-8.2)
--- NOTE | 2022-12-17 11:54 | RAD REPORT ---
EXAM DESCRIPTION: CT - Abdomen Pelvis W Contrast - 12/17/2022 11:40 am CLINICAL HISTORY: Abdominal pain/perirectal abscess COMPARISON: 2021 TECHNIQUE: Computed axial tomography of the abdomen pelvis was obtained. 70 cc Isovue-300 was admini stered intravenously. Oral contrast was not requested which limits evaluation of bowel and appendix All CT scans are performed using dose optimization technique as appropriate and may include automated exposure control or mA/KV adjustment according to patient size. FINDINGS: The liver, spleen, pancreas, adrenal and kidneys appear unremarkable. There is no evidence of diverticulitis. Normal appendix 2 centimeter right ovarian cyst with a small amount of free fluid. Perirectal abscess is not seen IMPRESSION: 2 centimeter right ovarian cyst with small amount of free fluid
[2022-12-17] MEDS ORDERED: ONDANSETRON 4 MG/2 ML VIAL ONE (12:12)
[2022-12-17] MEDS ORDERED: KETOROLAC 30 MG/ML INJ ONE (12:12)
--- NOTE | 2022-12-17 12:13 | EDPHYS ---
Physician Documentation [facility] Name: Mellisa Cordero Age: 27 yrs Sex: Female : 1995 Arrival Date: 12/17/2022 Time: 10:24 Bed 10 Private MD: ED Physician Jovany Hayden HPI: 12/17 13:51 This 27 yrs old Female presents to ER via Ambulatory with complaints of Rectal Pain, kb Hemorrhoids. 13:51 The patient presents to the emergency department with pain in the rectal area, that is kb moderate. Onset: The symptoms/episode began/occurred 3 day(s) ago. Context: the patient has no known special context relating to the rectal area complaint(s). Modifying factors: The symptoms are alleviated by nothing, The symptoms are aggravated by bowel movement, movement. Associate signs and symptoms: Pertinent positives: abdominal pain in the left lower quadrant. The patient has not experienced similar symptoms in the past. The patient has not recently seen a physician. Pt reports LLQ and rectal pain for 3 days. Reports nausea as well.. ROS: 13:49 Constitutional: Negative for fever, chills, and weight loss. kb 13:49 Abdomen/GI: Positive for abdominal pain, nausea. 13:49 : Positive for rectal pain. 13:49 All other systems are negative. Exam: 13:50 Constitutional: This is a well developed, well nourished patient who is awake, alert, kb and in no acute distress. Head/Face: Normocephalic, atraumatic. ENT: Moist Mucous membranes Cardiovascular: Regular rate and rhythm with a normal S1 and S2. No gallops, murmurs, or rubs. No pulse deficits. Respiratory: Respirations even and unlabored. No increased work of breathing. Talking in full sentences Back: No spinal tenderness. No costovertebral tenderness. Full range of motion. Skin: Warm, dry with normal turgor. Normal color. MS/ Extremity: Pulses equal, no cyanosis. Neurovascular intact. Full, normal range of motion. Neuro: Awake and alert, GCS 15, oriented to person, place, time, and situation. Moves all extremities. Normal gait. 13:50 Abdomen/GI: Inspection: abdomen appears normal, Bowel sounds: normal, Palpation: soft, in all quadrants, mild abdominal tenderness, in the left lower quadrant, Rectal exam: hemorrhoid(s), external, with pain, without bleeding, without inflammation, without thrombosis, tenderness, that is severe, from 5 o'clock to 9 o'clock. Vital Signs: 11:12 BP 135 / 85; Pulse 104; Resp 16; Temp 98.5; Pulse Ox 99% ; iw MDM: 10:29 Patient medically screened. kb 13:50 Differential diagnosis: hemorrhoids, fissure, abscess. Data reviewed: vital signs, kb nurses notes. Counseling: I had a detailed discussion with the patient and/or guardian regarding: the historical points, exam findings, and any diagnostic results supporting the discharge/admit diagnosis, lab results, radiology results, the need for outpatient follow up, a family practitioner, to return to the emergency department if symptoms worsen or persist or if there are any questions or concerns that arise at home. 12/17 10:34 Order name: CBC with Diff; Complete Time: 11:18 kb 12/17 10:34 Order name: CMP; Complete Time: 11:38 kb 12/17 10:34 Order name: Lipase; Complete Time: 11:38 kb 12/17 10:34 Order name: Test, Urine; Complete Time: 11:18 kb 12/17 10:34 Order name: Urinalysis w/ reflexes; Complete Time: 11:18 kb 12/17 10:34 Order name: CT Abd/Pelvis - IV Contrast Only; Complete Time: 11:57 kb 12/17 10:34 Order name: IV Saline Lock; Complete Time: 11:05 kb 12/17 10:34 Order name: Labs collected and sent; Complete Time: 11:05 kb Administered Medications: 12:09 Drug: TORadol - Ketorolac IVP 15 mg Route: IVP; Site: right antecubital; iw 12:09 Drug: Ondansetron IVP 4 mg Route: IVP; Site: right antecubital; iw 12:37 Not Given (Patient Refused): NS 0.9% IV 1000 ml IV at 1 bolus Per protocol; 1000 mL iw bolus Disposition Summary: 12/17/22 12:13 Discharge Ordered Location: Home kb Condition: Stable kb Diagnosis - Other ovarian cysts kb - Other hemorrhoids kb Followup: kb - With: Emergency Department - When: As needed - Reason: Worsening of condition Followup: kb - With: Private Physician - When: 2 - 3 days - Reason: Recheck today's complaints, Continuance of care, Re-evaluation by your physician Discharge Instructions: - Discharge Summary Sheet kb - Ovarian Cyst, [id number] kb - Hemorrhoids, [id number] kb Forms: - Medication Reconciliation Form kb - Thank You Letter kb - Antibiotic Education kb - Prescription Opioid Use kb Prescriptions: - Anusol-HC 25 mg Rectal suppository - insert 1 suppository by RECTAL route 2 times per day As needed as needed for kb hemorrhoids; 10 suppository; Refills: 0, Product Selection Permitted - Diclofenac Sodium 75 mg Oral Tablet Sustained Release - take 1 tablet by ORAL route 2 times per day; 30 tablet; Refills: 0, Product kb Selection Permitted Signatures: Dispatcher [employer] Marlen Joshua, BOARD LAYER-C ARTURO-Tosha Lan, RN RN iw
--- NOTE | 2022-12-17 12:13 | ER ---
Nurse's Notes [facility] Name: Mellisa Cordero Age: 27 yrs Sex: Female : 1995 Arrival Date: 12/17/2022 Time: 10:24 Bed 10 Private MD: Diagnosis: Other ovarian cysts;Other hemorrhoids Presentation: 12/17 11:03 Acuity: BRITTNI 3 iw 11:12 Chief complaint: Patient states: pt states painful bump outside of anus with a pain iw level of 6. site is burning and itching and also causing irritation with urination. pt also states vomiting for 2-3 days. Coronavirus screen: Vaccine status: Patient reports being unvaccinated. Client denies travel out of the [place] in the last 14 days. 11:12 Method Of Arrival: Ambulatory iw Vital Signs: 11:12 BP 135 / 85; Pulse 104; Resp 16; Temp 98.5; Pulse Ox 99% ; iw ED Course: 10:28 Patient arrived in ED. am2 10:28 Marlen Bradley FNP-C is PHCP. kb 10:29 Jovany Hayden MD is Attending Physician. kb 11:04 Triage completed. iw 11:05 Lipase Sent. bc6 11:05 CMP Sent. bc6 11:05 CBC with Diff Sent. bc6 11:05 Inserted saline lock: 20 gauge in right antecubital area, using aseptic technique. bc6 11:05 Test, Urine Sent. bc6 11:05 Urinalysis w/ reflexes Sent. bc6 11:41 CT Abd/Pelvis - IV Contrast Only In Process Unspecified. EDMS 12:09 Tosha Mares, GENI is Primary Nurse. iw Administered Medications: 12:09 Drug: TORadol - Ketorolac IVP 15 mg Route: IVP; Site: right antecubital; iw 12:09 Drug: Ondansetron IVP 4 mg Route: IVP; Site: right antecubital; iw 12:37 Not Given (Patient Refused): NS 0.9% IV 1000 ml IV at 1 bolus Per protocol; 1000 mL iw bolus Outcome: 12:13 Discharge ordered by MD. kb 12:37 Patient left the ED. iw Signatures: Dispatcher [employer] EDMS Marlen Bradley FNP-C FNP-Tosha Lan RN RN iw Abbi Byrd am2 Andra Cui bc6
[2022-12-17 12:46] VITALS: BP 135/85; TEMP 98.5; O2SAT 99
== END 2022-12-17 12:37 | disposition home or self-care (01) ==
LOC: ER 10:24
DX: K64.8 Other hemorrhoids (principal); N83.299 Other ovarian cyst, unspecified side
CPT/HCPCS: 85025; 36415; 81025; 81003; 83690; 80053; 74177; 96375; 96374; 99284; Q9967; J2405

== ENCOUNTER 2023-01-19 09:01 | Emergency (ER) | payer OTHER ==
--- OUTSIDE RECORDS SUMMARY | 2023-01-19 09:08 | XMS REPORT | Continuity of Care Document ---
:1995 Author Organization [facility] t Address [address] [facility] [address] [place] [address] Care Team Providers Name Role Phone Pcp, Patient Does Not Have A Primary Care Physician [phone] MAXIMINO ROSARIO Attending Clinician Unavailable KURTIS PATEL Attending Clinician Unavailable Kurtis Valverde Attending Clinician Unknown, Attending Attending Clinician Unavailable Doctor Unassigned, Colver Attending Clinician Unavailable ARRON CHILD Attending Clinician Unavailable Kristopher Venegas MD Attending Clinician Arron Child MD Attending Clinician Maximino Rosario MD Attending Clinician Unavailable Moisés Heart RN Attending Clinician Unavailable Jun Romero Attending Clinician [phone] JUN SALCEDO Attending Clinician Unavailable Josue Cheek Attending Clinician JOSUE MONTEIRO Attending Clinician Unavailable Morgan Luque Attending Clinician JAMAR BRISCOE Attending Clinician Unavailable Andrae MORRIS Jamar Attending Clinician Marco Moore MD Attending Clinician PRETTY WEBSTER Attending Clinician Unavailable PRETTY WEBSTER Attending Clinician Unavailable Tay García PA-C Attending Clinician Only, Adc Test Attending Clinician Unavailable Pob, Adc Lab Main Attending Clinician Unavailable TAY GARCÍA Attending Clinician Unavailable Vtc-Lab Attending Clinician Unavailable RADHIKA BOLANOS Attending Clinician Unavailable Cici HAULAGE ENGINE OPERATORRadhika Paiz Attending Clinician ARCELIA BRANDON Attending Clinician Unavailable [...] Attending Clinician Eduardo De Paz Attending Clinician EUDARDO VELIZ Attending Clinician Unavailable Ultrasound, AngMarlenebenezer Attending Clinician Unavailable Zacarias Perez MD Attending Clinician Gi Cervantes DNP Attending Clinician RYAN LOPEZ Attending Clinician Unavailable Guanako MORRIS, Ryan Attending Clinician GI CERVANTES Attending Clinician Unavailable Katie Cox RN Attending Clinician Unavailable 1 [facility] Attending Clinician Unavailable Tatyana Rodriguez MD Attending Clinician TATYANA RODRIGUEZ Attending Clinician Unavailable BRANDON PERAZA Attending Clinician Unavailable Faculty, Darrel Rmchp Mfm Attending Clinician Unavailable [facility] Attending Clinician Unavailable Jazzy Antonio MD Attending Clinician BOUCHRA PASTRANA Attending Clinician Unavailable CLAUDIO GAN Attending Clinician Unavailable Sai Morris Attending Clinician Unavailable UNKNOWN, ATTENDING Attending Clinician Unavailable Nidia Moreau Attending Clinician [phone] Bella Mcfarlane CNM Attending Clinician Vls-Lab Attending Clinician Unavailable MAXIMINO ROSARIO Admitting Clinician Unavailable Maximino Rosario MD Admitting Clinician STONEY PALMA Admitting Clinician Unavailable JOSE ARIZMENDI Admitting Clinician Unavailable Jose Arizmendi MD Admitting Clinician Physician, No Primary or Family Admitting Clinician Unavaila ble Payers Payer Name Policy Type Policy Number Effective Date Expiration Date Sue MOTAS [id number] 2018 HEALTH 00:00:00 Problems Condition Condition Condition Status Onset Resolution Last Treating Co mments Source Name Details Category Date Date Treatment Clinician Date Relies on Relies on Disease Active Uni vers partner partner 03-28 [place] contracept contracept Br anch ion ion Diarrhea, Diarrhea, Disease Active Overview: Univers unspecifie unspecifie 6-08 Formattin ity of d type d type 00:00: g of this [place] 00 note Medical might be Branch different from the original. Added automatic ally from request for surgery [id number] Abdominal Abdominal Disease Active Overview: Univers pain, pain, 608 Formattin ity of generalize generalize 00:00: g of this [place] d d 00 note Medical might be Branch different from the original. Added automatic ally from request for surgery [id number] Single Single Disease Active 2020-07 Univers liveborn liveborn 08-17 ity of 00:00: [place] 00 Medical Branch Disease Active 2020-07 Univers (spontaneo (spontaneo 08-17 [place] vaginal [place] 00 [facility] Branch Anemia of Anemia of Disease Active 2020-07 Uni vers mother in mother in 1-15 [place] of , , [place] antepartum antepartum 00 Ri dical Branch Elevated Elevated Disease Active 2020-07 Unive rs BP without BP without 1-12 [place] of diagnosis diagnosis [place] of of 00 Medical hypertensi hypertensi Br anch on on Tobacco Tobacco Disease Active Overview: Univ ers abuse abuse 4-05 Formattin ity of 00:00: g of this [place] note Medical might be Branch different from the original. Cessation at 12 weeks Screening Screening Disease Active Uni vers examinatio examinatio 3-12 it y of n for STD n [place] STD [place] ([place] (sexually 00 [facility] transmitte transmitte Br anch d disease) d disease) Anal Anal Disease Active Overview: Univer s fissure fissure 03-22 Formattin ity o f 00:00: g of this [place] note Medical might be Branch different from the original. Added automatic ally from request for surgery [id number] Family Family Disease Active Overview: Univer s history of history of 9 Formattin ity of colon colon 00:00: g of this [place] cancer cancer 00 note Medical might be Branch different from the original. Added automatic ally from request for surgery [id number] 39 weeks 39 weeks Disease Active Unive rs gestation gestation 6-03 ity of of of 00:00: [place] 00 [facility] Branch Overweight Overweight Disease Active U nivers (BMI (BMI 5-30 ity of 25.0-29.9) 25.0-29.9) [place] Obesity Obesity Disease Active Univers (BMI (BMI 5-22 ity of 30-39.9) 30-39.9) 00:00: [place] 00 Medical Branch Multiparit Multiparit Disease Active U nivers y y 3-12 ity of 00:00: [place] 00 Medical Branch History of History of Disease Active 2017-07 U nivers headache headache 2-03 ity of 00:00: [place] Medical Branch Supervisio Supervisio Disease Active 2017-07 Overview : Univers n of high n of high 0-08 Formattin i ty of risk risk 00:00: g of this [place] , , 00 note Me dical antepartum antepartum might be Branch different from the original. 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) 00 Medica l infection infection Bran ch History of History of Disease Active U nivers depression depression 5-09 it y of 00:00: [place] Medical Branch Well woman Well woman Disease Active 2015-07 U nivers exam exam 0-03 ity of 00:00: [place] 00 Medical Branch Bipolar I Bipolar I Disease Active Uni vers disorder, disorder, 1-10 ity of most most 00:00: [place] recent recent 00 Medical episode episode Branch (or (or current) current) manic manic Allergies, Adverse Reactions, Alerts Allergy Allergy Status Severity Reaction(s) Onset Inactive Treating Comm ents Source Name Type Date Date Clinician Hydrocod Propensi Active Nausea Univer s one ty to and/or 11-23 ity of adverse Vomiting 00:00: [place] reaction 00 Medical s Branch HYDROCOD DRUG Active N/V Univers ONE INGREDI 5-07 ity of 00:00: [place] 00 Medical Branch No Known DA Active U [facility] Allergie 04-11 Clear s 00:00: [address] Social History Social Habit Start Date Stop Date Quantity Comments Source History of Cigarette Smoker Universi ty of tobacco use [place] [facility] History [facility] University o f Alcohol Frequency [facility] edical Branch History [facility] o f Alcohol Std [place] Medical Drinks Branch History [facility] University o f Alcohol Binge [place] Medic al Branch Exposure to 2022-06-09 2022-06-19 Not sure [place] of SARS-CoV-2 00:00:00 16:00:00 [facility] (event) Branch Alcohol intake 2022-06-19 2022-06-19 0 /d University of 00:00:00 00:00:00 [facility] Tobacco use and 2021-10-03 2021-10-03 Smokeless tobacco Un iversity of exposure 00:00:00 00:00:00 non-user [facility] Alcohol Comment 2018-04-26 2018-04-26 Dc'd 07/27/2014/ Tess rsity of 00:00:00 00:00:00 last drank [facility] 04/20/2018 x 2 Branch drinks a day Sex [birth year] Universit y of 00:00:00 00:00:00 [facility] Smoking Status Start Date Stop Date Source Ex-smoker 2021-10-03 00:00:00 2021-10-03 00:00:00 [facility] Medications Ordered Filled Start Stop Current Ordering Indication Dosage Frequency Signature Comments Components Source Medication Medication Date Date Medication? Clinician (SIG) Name Name Vida 2022- Yes [id number] 500mg Take 1 Univers r 500 mg 4-30 05-06 tablet by ity o f tablet 00:00: 04:59 mouth in [place] 00 :00 the Medical morning Branch and 1 tablet in the evening. Do all this for 5 days. valACYclovi 2022- Yes [id number] 500mg Take 1 Univers r 500 mg 4-30 05-06 tablet by ity o f tablet 00:00: 04:59 mouth in [place] 00 :00 the Medical morning Branch and 1 tablet in the evening. Do all this for 5 days. ciprofloxac 2021-07 Yes 500mg Take 500 U nivers in HCl 2-01 mg by ity of (CIPRO) 500 16:13: mouth [place] mg tablet 23 every 12 Medica l (twelve) Branch hours. tramadol 2021-07 Yes 50mg Take 50 mg Uni vers HCl 2-01 by mouth. ity of (TRAMADOL 16:13: [place] ORAL) [facility] ciprofloxac 2021-07 Yes 500mg Take 500 U nivers in HCl 2-01 mg by ity of (CIPRO) 500 16:13: mouth [place] mg tablet 23 every 12 Medica l (twelve) Branch hours. tramadol 2021-07 Yes 50mg Take 50 mg Uni vers HCl 2-01 by mouth. ity of (TRAMADOL 16:13: [place] ORAL) 23 [facility] ciprofloxac 2021-07 Yes 500mg Take 500 U nivers in HCl 2-01 mg by ity of (CIPRO) 500 16:13: mouth [place] mg tablet 23 every 12 Medica l (twelve) Branch hours. tramadol 2021-07 Yes 50mg Take 50 mg Uni vers HCl 2-01 by mouth. ity of (TRAMADOL 16:13: [place] ORAL) Medical Branch ciprofloxac 2021-07 Yes 500mg Take 500 U nivers in HCl 2-01 mg by ity of (CIPRO) 500 16:13: mouth [place] mg tablet 23 every 12 Medica l (twelve) Branch hours. tramadol 2021-07 Yes 50mg Take 50 mg Uni vers HCl 2-01 by mouth. ity of (TRAMADOL 16:13: [place] ORAL) Medical Branch ciprofloxac 2021-07 Yes 500mg Take 500 U nivers in HCl 2-01 mg by ity of (CIPRO) 500 16:13: mouth [place] mg tablet 23 every 12 Medica l (twelve) Branch hours. tramadol 2021-07 Yes 50mg Take 50 mg Uni vers HCl 2-01 by mouth. ity of (TRAMADOL 16:13: [place] ORAL) Medical Branch ciprofloxac 2021-07 Yes 500mg Take 500 U nivers in HCl 2-01 mg by ity of (CIPRO) 500 16:13: mouth [place] mg tablet 23 every 12 Medica l (twelve) Branch hours. tramadol 2021-07 Yes 50mg Take 50 mg Uni vers HCl 2-01 by mouth. ity of (TRAMADOL 16:13: [place] ORAL) Medical Branch ciprofloxac 2021-07 Yes 500mg Take 500 U nivers in HCl 2-01 mg by ity of (CIPRO) 500 16:13: mouth [place] mg tablet 23 every 12 Medica l (twelve) Branch hours. tramadol 2021-07 Yes 50mg Take 50 mg Uni vers HCl 2-01 by mouth. ity of (TRAMADOL 16:13: [place] ORAL) Medical Branch dicyclomine 2021-07 Yes [id number] 10mg Take 1 Univers 10 mg 2-01 capsule by ity of capsule 00:00: mouth [place] 00 every 6 Medical (six) Branch hours as needed for Abdominal pain. dicyclomine 2021-07 Yes [id number] 10mg Take 1 Univers 10 mg 2-01 capsule by ity of capsule 00:00: mouth [place] 00 every 6 Medical (six) Branch hours as needed for Abdominal pain. dicyclomine 2021-07 Yes [id number] 10mg Take 1 Univers 10 mg 2-01 capsule by ity of capsule 00:00: mouth [place] 00 every 6 Medical (six) Branch hours as needed for Abdominal pain. dicyclomine 2021- Yes [id number] 10mg Take 1 Univers 10 mg 2-01 capsule by ity of capsule 00:00: mouth [place] 00 every 6 Medical (six) Branch hours as needed for Abdominal pain. dicyclomine 2021-07 Yes [id number] 10mg Take 1 Univers 10 mg 2-01 capsule by ity of capsule 00:00: mouth [place] 00 every 6 Medical (six) Branch hours as needed for Abdominal pain. dicyclomine 2021-07 Yes [id number] 10mg Take 1 Univers 10 mg 2-01 capsule by ity of capsule 00:00: mouth [place] 00 every 6 Medical (six) Branch hours as needed for Abdominal pain. dicyclomine 2021-07 Yes [id number] 10mg Take 1 Univers 10 mg 2-01 capsule by ity of capsule 00:00: mouth [place] 00 every 6 Medical (six) Branch hours as needed for Abdominal pain. metroNIDAZO 2021-0 Yes [id number] 500mg Take 1 Univers LE 500 mg 9-30 tablet by ity o f tablet 00:00: mouth in [place] 00 the Medical morning Branch and 1 tablet in the evening. metroNIDAZO 2021-0 Yes [id number] 500mg Take 1 Univers LE 500 mg 9-30 tablet by ity o f tablet 00:00: mouth in [place] 00 the Medical morning Branch and 1 tablet in the evening. metroNIDAZO 2021-0 Yes [id number] 500mg Take 1 Univers LE 500 mg 9-30 tablet by ity o f tablet 00:00: mouth in [place] 00 the Medical morning Branch and 1 tablet in the evening. metroNIDAZO 2021-0 Yes [id number] 500mg Take 1 Univers LE 500 mg 9-30 tablet by ity o f tablet 00:00: mouth in [place] 00 the Medical morning Branch and 1 tablet in the evening. metroNIDAZO 2-0 Yes [id number] 500mg Take 1 Univers LE 500 mg 9-30 tablet by ity o f tablet 00:00: mouth in [place] 00 the Medical morning Branch and 1 tablet in the evening. metroNIDAZO 2-0 Yes [id number] 500mg Take 1 Univers LE 500 mg 9-30 tablet by ity o f tablet 00:00: mouth in [place] 00 the Medical morning Branch and 1 tablet in the evening. metroNIDAZO 2-0 Yes [id number] 500mg Take 1 Univers LE 500 mg 9-30 tablet by ity o f tablet 00:00: mouth in [place] 00 the Medical morning Branch and 1 tablet in the evening. metroNIDAZO 2-0 Yes [id number] 500mg Take 1 Univers LE 500 mg 9-30 tablet by ity o f tablet 00:00: mouth in [place] 00 the Medical morning Branch and 1 tablet in the evening. metroNIDAZO 2-0 Yes [id number] 500mg Take 1 Univers LE 500 mg 9-30 tablet by ity o f tablet 00:00: mouth in [place] 00 the Medical morning Branch and 1 tablet in the evening. metroNIDAZO 2-0 Yes [id number] 500mg Take 1 Univers LE 500 mg 9-30 tablet by ity o f tablet 00:00: mouth in [place] 00 the Medical morning Branch and 1 tablet in the evening. metroNIDAZO 2021-0 Yes [id number] 500mg Take 1 Univers LE 500 mg 9-30 tablet by ity o f tablet 00:00: mouth in [place] 00 the Medical morning Branch and 1 tablet in the evening. metroNIDAZO 2021-0 Yes [id number] 500mg Take 1 Univers LE 500 mg 9-30 tablet by ity o f tablet 00:00: mouth in [place] 00 the Medical morning Branch and 1 tablet in the evening. metroNIDAZO 2021-0 Yes [id number] 500mg Take 1 Univers LE 500 mg 9-30 tablet by ity o f tablet 00:00: mouth in [place] 00 the Medical morning Branch and 1 tablet in the evening. metroNIDAZO 2-0 Yes [id number] 500mg Take 1 Univers LE 500 mg 9-12 tablet by ity o f tablet 00:00: mouth in [place] 00 the Medical morning Branch and 1 tablet in the evening. metroNIDAZO 2-0 Yes [id number] 500mg Take 1 Univers LE 500 mg 9-12 tablet by ity o f tablet 00:00: mouth in [place] 00 the Medical morning Branch and 1 tablet in the evening. metroNIDAZO 2-0 Yes [id number] 500mg Take 1 Univers LE 500 mg 9-12 tablet by ity o f tablet 00:00: mouth in [place] 00 the Medical morning Branch and 1 tablet in the evening. metroNIDAZO 2-0 Yes [id number] 500mg Take 1 Univers LE 500 mg 9-12 tablet by ity o f tablet 00:00: mouth in [place] 00 the Medical morning Branch and 1 tablet in the evening. metroNIDAZO 2-0 Yes [id number] 500mg Take 1 Univers LE 500 mg 9-12 tablet by ity o f tablet 00:00: mouth in [place] 00 the Medical morning Branch and 1 tablet in the evening. metroNIDAZO 2-0 Yes [id number] 500mg Take 1 Univers LE 500 mg 9-12 tablet by ity o f tablet 00:00: mouth in [place] 00 the Medical morning Branch and 1 tablet in the evening. metroNIDAZO 2-0 Yes [id number] 500mg Take 1 Univers LE 500 mg 9-12 tablet by ity o f tablet 00:00: mouth in [place] 00 the Medical morning Branch and 1 tablet in the evening. metroNIDAZO 2021-0 Yes [id number] 500mg Take 1 Univers LE 500 mg 9-12 tablet by ity o f tablet 00:00: mouth in [place] 00 the Medical morning Branch and 1 tablet in the evening. metroNIDAZO 2021-0 Yes [id number] 500mg Take 1 Univers LE 500 mg 9-12 tablet by ity o f tablet 00:00: mouth in [place] 00 the Medical morning Branch and 1 tablet in the evening. metroNIDAZO 2-0 Yes [id number] 500mg Take 1 Univers LE 500 mg 9-12 tablet by ity o f tablet 00:00: mouth in [place] 00 the Medical morning Branch and 1 tablet in the evening. metroNIDAZO 2-0 Yes [id number] 500mg Take 1 Univers LE 500 mg 9-12 tablet by ity o f tablet 00:00: mouth in [place] 00 the Medical morning Branch and 1 tablet in the evening. metroNIDAZO 2-0 Yes [id number] 500mg Take 1 Univers LE 500 mg 9-12 tablet by ity o f tablet 00:00: mouth in [place] 00 the Medical morning Branch and 1 tablet in the evening. metroNIDAZO 2-0 Yes [id number] 500mg Take 1 Univers LE 500 mg 9-12 tablet by ity o f tablet 00:00: mouth in [place] 00 the Medical morning Branch and 1 tablet in the evening. metroNIDAZO 2-0 Yes [id number] 500mg Take 1 Univers LE 500 mg 9-12 tablet by ity o f tablet 00:00: mouth in [place] 00 the Medical morning Branch and 1 tablet in the evening. metroNIDAZO 2022-0 Yes [id number] 500mg Take 1 Univers LE 500 mg 9-12 tablet by ity o f tablet 00:00: mouth in [place] 00 the Medical morning Branch and 1 tablet in the evening. metroNIDAZO 2022-0 Yes [id number] 500mg Take 1 Univers LE 500 mg 9-12 tablet by ity o f tablet 00:00: mouth in [place] 00 the Medical morning Branch and 1 tablet in the evening. cyclobenzap 2022-0 Yes [id number] 10mg Take 1 Univers rine 10 mg 8-14 tablet by ity of tablet 00:00: mouth 3 (three) Medical times Branch daily as needed for Muscle Spasms. cyclobenzap 2022-0 Yes [id number] 10mg Take 1 Univers rine 10 mg 8-14 tablet by ity of tablet 00:00: mouth (three) Medical times Branch daily as needed for Muscle Spasms. cyclobenzap 2-0 Yes [id number] 10mg Take 1 Univers rine 10 mg 8-14 tablet by ity of tablet 00:00: mouth () Medical times Branch daily as needed for Muscle Spasms. cyclobenzap 2022-0 Yes [id number] 10mg Take 1 Univers rine 10 mg 8-14 tablet by ity of tablet 00:00: mouth 3 (three) Medical times Branch daily as needed for Muscle Spasms. cyclobenzap 2022-0 Yes [id number] 10mg Take 1 Univers rine 10 mg 8-14 tablet by ity of tablet 00:00: mouth 3 (three) Medical times Branch daily as needed for Muscle Spasms. cyclobenzap 2022-0 Yes [id number] 10mg Take 1 Univers rine 10 mg 8-14 tablet by ity of tablet 00:00: mouth 3 (three) Medical times Branch daily as needed for Muscle Spasms. cyclobenzap 2022-0 Yes [id number] 10mg Take 1 Univers rine 10 mg 8-14 tablet by ity of tablet 00:00: mouth 3 (three) Medical times Branch daily as needed for Muscle Spasms. cyclobenzap 2022-0 Yes [id number] 10mg Take 1 Univers rine 10 mg 8-14 tablet by ity of tablet 00:00: mouth 3 (three) Medical times Branch daily as needed for Muscle Spasms. cyclobenzap 2021-0 Yes [id number] 10mg Take 1 Univers rine 10 mg 8-14 tablet by ity of tablet 00:00: mouth 3 (three) Medical times Branch daily as needed for Muscle Spasms. cyclobenzap 2022-0 Yes [id number] 10mg Take 1 Univers rine 10 mg 8-14 tablet by ity of tablet 00:00: mouth 3 (three) Medical times Branch daily as needed for Muscle Spasms. cyclobenzap 2-0 Yes [id number] 10mg Take 1 Univers rine 10 mg 8-14 tablet by ity of tablet 00:00: mouth 3 (three) Medical times Branch daily as needed for Muscle Spasms. cyclobenzap 2021-0 Yes [id number] 10mg Take 1 Univers rine 10 mg 8-14 tablet by ity of tablet 00:00: mouth (three) Medical times Branch daily as needed for Muscle Spasms. cyclobenzap 2-0 Yes [id number] 10mg Take 1 Univers rine 10 mg 8-14 tablet by ity of tablet 00:00: mouth 3 (three) Medical times Branch daily as needed for Muscle Spasms. cyclobenzap 2-0 Yes [id number] 10mg Take 1 Univers rine 10 mg 8-14 tablet by ity of tablet 00:00: mouth (three) Medical times Branch daily as needed for Muscle Spasms. cyclobenzap 2-0 Yes [id number] 10mg Take 1 Univers rine 10 mg 8-14 tablet by ity of tablet 00:00: mouth 3 (three) Medical times Branch daily as needed for Muscle Spasms. cyclobenzap 2022-0 Yes [id number] 10mg Take 1 Univers rine 10 mg 8-14 tablet by ity of tablet 00:00: mouth 3 (three) Medical times Branch daily as needed for Muscle Spasms. Immunizations Ordered Immunization Filled Immunization Date Status Commen ts Source Name Name TDAP 2021-03-29 Completed University of 00:00:00 [place] [facility] TDAP 2021-03-29 Completed University of 00:00:00 [place] [facility] TDAP 2021-03-29 Completed University of 00:00:00 [place] [facility] TDAP 2021-03-29 Completed University of 00:00:00 [place] [facility] TDAP 2021-03-29 Completed University of 00:00:00 [place] [facility] TDAP 2021-03-29 Completed University of 00:00:00 [place] [facility] TDAP 2021-03-29 Completed University of 00:00:00 [place] [facility] TDAP 2021-03-29 Completed University of 00:00:00 [place] [facility] TDAP 2021-03-29 Completed University of 00:00:00 [place] [facility] TDAP 2021-03-29 Completed University of 00:00:00 [place] [facility] TDAP 2021-03-29 Completed University of 00:00:00 [facility] Branch TDAP 2021-03-29 Completed University of 00:00:00 [place] [facility] TDAP 2021-03-29 Completed University of 00:00:00 [place] [facility] TDAP 2021-03-29 Completed University of 00:00:00 [place] [facility] TDAP 2021-03-29 Completed University of 00:00:00 [place] [facility] TDAP 2021-03-29 Completed University of 00:00:00 [facility] Branch TDAP 2018-10-15 Completed University of 00:00:00 [facility] TDAP 2018-10-15 Completed University of 00:00:00 [facility] Branch TDAP 2018-10-15 Completed University of 00:00:00 [place] [facility] TDAP 2018-10-15 Completed University of 00:00:00 [place] [facility] TDAP 2018-10-15 Completed University of 00:00:00 [place] [facility] TDAP 2018-10-15 Completed University of 00:00:00 [place] [facility] TDAP 2018-10-15 Completed University of 00:00:00 [place] [facility] TDAP 2018-10-15 Completed University of 00:00:00 [place] [facility] TDAP 2018-10-15 Completed University of 00:00:00 [place] [facility] TDAP 2018-10-15 Completed University of 00:00:00 [place] [facility] TDAP 2018-10-15 Completed University of 00:00:00 [place] [facility] TDAP 2018-10-15 Completed University of 00:00:00 [facility] TDAP 2018-10-15 Completed University of 00:00:00 [facility] TDAP 2018-10-15 Completed University of 00:00:00 [facility] TDAP 2018-10-15 Completed University of 00:00:00 [facility] TDAP 2018-10-15 Completed University of 00:00:00 [facility] PPD (TB) 2012-08-23 Completed University of 00:00:00 [facility] PPD (TB) 2012-08-23 Completed University of 00:00:00 [facility] PPD (TB) 2012-08-23 Completed University of 00:00:00 [facility] PPD (TB) 2012-08-23 Completed University of 00:00:00 [facility] PPD (TB) 2012-08-23 Completed University of 00:00:00 [facility] PPD (TB) 2012-08-23 Completed University of 00:00:00 [facility] PPD (TB) 2012-08-23 Completed University of 00:00:00 [facility] PPD (TB) 2012-08-23 Completed University of 00:00:00 [facility] PPD (TB) 2012-08-23 Completed University of 00:00:00 [facility] PPD (TB) 2012-08-23 Completed University of 00:00:00 [facility] PPD (TB) 2012-08-23 Completed University of 00:00:00 [facility] PPD (TB) 2012-08-23 Completed University of 00:00:00 [facility] PPD (TB) 2012-08-23 Completed University of 00:00:00 [facility] PPD (TB) 2012-08-23 Completed University of 00:00:00 [facility] PPD (TB) 2012-08-23 Completed University of 00:00:00 [facility] PPD (TB) 2012-08-23 Completed University of 00:00:00 [facility] HPV Unspecified 2011-07-03 Completed [facility] 00:00:00 [facility] Meningococcal 2011-07-03 Completed [facility] of Polysaccharide 00:00:00 [facility] radha (groups A, C, Y and Branc h W-135) conjugate vaccine (MCV4P) TDAP 2011-07-03 Completed [facility] 00:00:00 [facility] Varicella 2011-07-03 Completed [facility] (varivax)(chicken 00:00:00 [place] [facility]ox[facility] HPV Unspecified 2011-07-03 Completed [facility] 00:00:00 [facility] Meningococcal 2011-07-03 Completed [facility] Polysaccharide 00:00:00 [place] [facility] (groups A, C, Y and Branc h W-135) conjugate vaccine (MCV4P) TDAP 2011-07-03 Completed [facility] 00:00:00 [facility] Varicella 2011-07-03 Completed [facility] (varivax)(chicken 00:00:00 [place] [facility] pox[facility] HPV Unspecified 2011-07-03 Completed [facility] 00:00:00 [facility] Meningococcal 2011-07-03 Completed [facility] Polysaccharide 00:00:00 [place] [facility] (groups A, C, Y and Branc h W-135) conjugate vaccine (MCV4P) TDAP 2011-07-03 Completed [facility] 00:00:00 [facility] Varicella 2011-07-03 Completed [facility] (varivax)(chicken 00:00:00 [place] [facility] pox[facility] HPV Unspecified 2011-07-03 Completed [facility] 00:00:00 [facility] Meningococcal 2011-07-03 Completed [facility] Polysaccharide 00:00:00 [place] [facility] (groups A, C, Y and Branc h W-135) conjugate vaccine (MCV4P) TDAP 2011-07-03 Completed [facility] 00:00:00 [facility] Varicella 2011-07-03 Completed [facility] (varivax)(chicken 00:00:00 [place] [facility] pox[facility] HPV Unspecified 2011-07-03 Completed [facility] 00:00:00 [facility] Meningococcal 2011-07-03 Completed [facility] Polysaccharide 00:00:00 [place] [facility] (groups A, C, Y and Branc h W-135) conjugate vaccine (MCV4P) TDAP 2011-07-03 Completed [facility] 00:00:00 [facility] Varicella 2011-07-03 Completed [facility] (varivax)(chicken 00:00:00 [place] [facility] pox[facility] HPV Unspecified 2011-07-03 Completed [facility] 00:00:00 [facility] Meningococcal 2011-07-03 Completed [facility] Polysaccharide 00:00:00 [place] [facility] (groups A, C, Y and Branc h W-135) conjugate vaccine (MCV4P) TDAP 2011-07-03 Completed [facility] 00:00:00 [facility] Varicella 2011-07-03 Completed [facility] (varivax)(chicken 00:00:00 [place] [facility] pox[facility] HPV Unspecified 2011-07-03 Completed [facility] 00:00:00 [facility] Meningococcal 2011-07-03 Completed [facility] Polysaccharide 00:00:00 [place] [facility] (groups A, C, Y and Branc h W-135) conjugate vaccine (MCV4P) TDAP 2011-07-03 Completed [facility] 00:00:00 [facility] Varicella 2011-07-03 Completed [facility] (varivax)(chicken 00:00:00 [place] [facility] pox) [facility] HPV Unspecified 2011-07-03 Completed [facility] 00:00:00 [facility] Meningococcal 2011-07-03 Completed [facility] Polysaccharide 00:00:00 [place] [facility] (groups A, C, Y and Branc h W-135) conjugate vaccine (MCV4P) TDAP 2011-07-03 Completed [facility] 00:00:00 [facility] Varicella 2011-07-03 Completed [facility] (varivax)(chicken 00:00:00 [place] [facility] pox) [facility] HPV Unspecified 2011-07-03 Completed [facility] 00:00:00 [facility] Meningococcal 2011-07-03 Completed [facility] Polysaccharide 00:00:00 [place] [facility] (groups A, C, Y and Branc h W-135) conjugate vaccine (MCV4P) TDAP 2011-07-03 Completed [facility] 00:00:00 [facility] Varicella 2011-07-03 Completed [facility] (varivax)(chicken 00:00:00 [place] [facility] pox) [facility] HPV Unspecified 2011-07-03 Completed [facility] 00:00:00 [facility] Meningococcal 2011-07-03 Completed [facility] Polysaccharide 00:00:00 [place] [facility] (groups A, C, Y and Branc h W-135) conjugate vaccine (MCV4P) TDAP 2011-07-03 Completed [facility] 00:00:00 [facility] Varicella 2011-07-03 Completed [facility] (varivax)(chicken 00:00:00 [place] [facility] pox) [facility] HPV Unspecified 2011-07-03 Completed [facility] 00:00:00 [facility] Meningococcal 2011-07-03 Completed [facility] Polysaccharide 00:00:00 [facility] radha (groups A, C, Y and Branc h W-135) conjugate vaccine (MCV4P) TDAP 2011-07-03 Completed [facility] 00:00:00 [facility] Varicella 2011-07-03 Completed [facility] (varivax)(chicken 00:00:00 [place] [facility] pox) [facility] HPV Unspecified 2011-07-03 Completed [facility] 00:00:00 [facility] Meningococcal 2011-07-03 Completed [facility] Polysaccharide 00:00:00 [facility] radha (groups A, C, Y and Branc h W-135) conjugate vaccine (MCV4P) TDAP 2011-07-03 Completed [facility] 00:00:00 [facility] Varicella 2011-07-03 Completed [facility] (varivax)(chicken 00:00:00 [place] [facility] pox) [facility] HPV Unspecified 2011-07-03 Completed [facility] 00:00:00 [facility] Meningococcal 2011-07-03 Completed [facility] Polysaccharide 00:00:00 [facility] radha (groups A, C, Y and Branc h W-135) conjugate vaccine (MCV4P) TDAP 2011-07-03 Completed [facility] 00:00:00 [facility] Varicella 2011-07-03 Completed [facility] (varivax)(chicken 00:00:00 [place] [facility] pox[facility] HPV Unspecified 2011-07-03 Completed [facility] 00:00:00 [facility] Meningococcal 2011-07-03 Completed [facility] Polysaccharide 00:00:00 [facility] radha (groups A, C, Y and Branc h W-135) conjugate vaccine (MCV4P) TDAP 2011-07-03 Completed [facility] 00:00:00 [facility] Varicella 2011-07-03 Completed [facility] (varivax)(chicken 00:00:00 [place] [facility] pox) [facility] HPV Unspecified 2011-07-03 Completed [facility] 00:00:00 [facility] Meningococcal 2011-07-03 Completed [facility] Polysaccharide 00:00:00 [facility] radha (groups A, C, Y and Branc h W-135) conjugate vaccine (MCV4P) TDAP 2011-07-03 Completed [facility] 00:00:00 [facility] Varicella 2011-07-03 Completed [facility] (varivax)(chicken 00:00:00 [place] [facility] pox) [facility] HPV Unspecified 2011-07-03 Completed [facility] 00:00:00 [facility] Meningococcal 2011-07-03 Completed [facility] Polysaccharide 00:00:00 [facility] radha (groups A, C, Y and Branc h W-135) conjugate vaccine (MCV4P) TDAP 2011-07-03 Completed [facility] 00:00:00 [facility] Varicella 2011-07-03 Completed [facility] (varivax)(chicken 00:00:00 [place] [facility]ox[facility] TDAP 2009-10-19 Completed [facility] 00:00:00 [facility] TDAP 2009-10-19 Completed [facility] 00:00:00 [facility] TDAP 2009-10-19 Completed [facility] 00:00:00 [facility] TDAP 2009-10-19 Completed [facility] 00:00:00 [facility] TDAP 2009-10-19 Completed [facility] 00:00:00 [facility] TDAP 2009-10-19 Completed [facility] 00:00:00 [facility] TDAP 2009-10-19 Completed [facility] 00:00:00 [facility] TDAP 2009-10-19 Completed [facility] 00:00:00 [facility] TDAP 2009-10-19 Completed [facility] 00:00:00 [facility] TDAP 2009-10-19 Completed [facility] 00:00:00 [facility] TDAP 2009-10-19 Completed [facility] 00:00:00 [facility] TDAP 2009-10-19 Completed [facility] 00:00:00 [facility] TDAP 2009-10-19 Completed [facility] 00:00:00 [facility] TDAP 2009-10-19 Completed [facility] 00:00:00 [facility] TDAP 2009-10-19 Completed [facility] 00:00:00 [facility] TDAP 2009-10-19 Completed [facility] 00:00:00 [facility] HEPATITIS A 2006-03-17 Completed [facility] 00:00:00 [facility] HEPATITIS A 2006-03-17 Completed [facility] 00:00:00 [facility] HEPATITIS A 2006-03-17 Completed [facility] 00:00:00 [facility] HEPATITIS A 2006-03-17 Completed [facility] 00:00:00 [facility] HEPATITIS A 2006-03-17 Completed [facility] 00:00:00 [facility] HEPATITIS A 2006-03-17 Completed [facility] 00:00:00 [facility] HEPATITIS A 2006-03-17 Completed [facility] 00:00:00 [facility] HEPATITIS A 2006-03-17 Completed [facility] 00:00:00 [facility] HEPATITIS A 2006-03-17 Completed [facility] 00:00:00 [facility] HEPATITIS A 2006-03-17 Completed [facility] 00:00:00 [facility] HEPATITIS A 2006-03-17 Completed [facility] 00:00:00 [facility] HEPATITIS A 2006-03-17 Completed [facility] 00:00:00 [facility] HEPATITIS A 2006-03-17 Completed [facility] 00:00:00 [facility] HEPATITIS A 2006-03-17 Completed [facility] 00:00:00 [facility] HEPATITIS A 2006-03-17 Completed [facility] 00:00:00 [facility] HEPATITIS A 2006-03-17 Completed [facility] 00:00:00 [facility] HEPATITIS A 2005-02-24 Completed [facility] 00:00:00 [facility] HEPATITIS A 2005-02-24 Completed [facility] 00:00:00 [facility] HEPATITIS A 2005-02-24 Completed [facility] 00:00:00 [facility] HEPATITIS A 2005-02-24 Completed [facility] 00:00:00 [facility] HEPATITIS A 2005-02-24 Completed [facility] 00:00:00 [facility] HEPATITIS A 2005-02-24 Completed [facility] 00:00:00 [facility] HEPATITIS A 2005-02-24 Completed [facility] 00:00:00 [facility] HEPATITIS A 2005-02-24 Completed [facility] 00:00:00 [facility] HEPATITIS A 2005-02-24 Completed [facility] 00:00:00 [facility] HEPATITIS A 2005-02-24 Completed [facility] 00:00:00 [facility] HEPATITIS A 2005-02-24 Completed [facility] 00:00:00 [facility] HEPATITIS A 2005-02-24 Completed [facility] 00:00:00 [facility] HEPATITIS A 2005-02-24 Completed [facility] 00:00:00 [facility] HEPATITIS A 2005-02-24 Completed [facility] 00:00:00 [facility] HEPATITIS A 2005-02-24 Completed [facility] 00:00:00 [facility] HEPATITIS A 2005-02-24 Completed [facility] 00:00:00 [facility] DTAP 2002-03-07 Completed [facility] 00:00:00 [facility] MMR 2002-03-07 Completed [facility] 00:00:00 [facility] Polio (IPV/OPV) 2002-03-07 Completed [facility] 00:00:00 [facility] DTAP 2002-03-07 Completed [facility] 00:00:00 [facility] MMR 2002-03-07 Completed [facility] 00:00:00 [facility] Polio (IPV/OPV) 2002-03-07 Completed [facility] 00:00:00 [facility] DTAP 2002-03-07 Completed [facility] 00:00:00 [facility] MMR 2002-03-07 Completed [facility] 00:00:00 [facility] Polio (IPV/OPV) 2002-03-07 Completed [facility] 00:00:00 [facility] DTAP 2002-03-07 Completed [facility] 00:00:00 [facility] MMR 2002-03-07 Completed [facility] 00:00:00 [facility] Polio (IPV/OPV) 2002-03-07 Completed [facility] 00:00:00 [facility] DTAP 2002-03-07 Completed [facility] 00:00:00 [facility] MMR 2002-03-07 Completed [facility] 00:00:00 [facility] Polio (IPV/OPV) 2002-03-07 Completed [facility] 00:00:00 [facility] DTAP 2002-03-07 Completed [facility] 00:00:00 [facility] MMR 2002-03-07 Completed [facility] 00:00:00 [facility] Polio (IPV/OPV) 2002-03-07 Completed [facility] 00:00:00 [facility] DTAP 2002-03-07 Completed [facility] 00:00:00 [facility] MMR 2002-03-07 Completed [facility] 00:00:00 [facility] Polio (IPV/OPV) 2002-03-07 Completed [facility] 00:00:00 [facility] DTAP 2002-03-07 Completed [facility] 00:00:00 [facility] MMR 2002-03-07 Completed [facility] 00:00:00 [facility] Polio (IPV/OPV) 2002-03-07 Completed [facility] 00:00:00 [facility] DTAP 2002-03-07 Completed [facility] 00:00:00 [facility] MMR 2002-03-07 Completed [facility] 00:00:00 [facility] Polio (IPV/OPV) 2002-03-07 Completed [facility] 00:00:00 [facility] DTAP 2002-03-07 Completed [facility] 00:00:00 [facility] MMR 2002-03-07 Completed [facility] 00:00:00 [facility] Polio (IPV/OPV) 2002-03-07 Completed [facility] 00:00:00 [facility] DTAP 2002-03-07 Completed [facility] 00:00:00 [facility] MMR 2002-03-07 Completed [facility] 00:00:00 [facility] Polio (IPV/OPV) 2002-03-07 Completed [facility] 00:00:00 [facility] DTAP 2002-03-07 Completed [facility] 00:00:00 [facility] MMR 2002-03-07 Completed [facility] 00:00:00 [facility] Polio (IPV/OPV) 2002-03-07 Completed [facility] 00:00:00 [facility] DTAP 2002-03-07 Completed [facility] 00:00:00 [facility] MMR 2002-03-07 Completed [facility] 00:00:00 [facility] Polio (IPV/OPV) 2002-03-07 Completed [facility] 00:00:00 [facility] DTAP 2002-03-07 Completed [facility] 00:00:00 [facility] MMR 2002-03-07 Completed [facility] 00:00:00 [facility] Polio (IPV/OPV) 2002-03-07 Completed [facility] 00:00:00 [facility] DTAP 2002-03-07 Completed [facility] 00:00:00 [facility] MMR 2002-03-07 Completed [facility] 00:00:00 [facility] Polio (IPV/OPV) 2002-03-07 Completed [facility] 00:00:00 [facility] DTAP 2002-03-07 Completed [facility] 00:00:00 [facility] MMR 2002-03-07 Completed [facility] 00:00:00 [facility] Polio (IPV/OPV) 2002-03-07 Completed [facility] 00:00:00 [facility] DTAP 1997 Completed [facility] 00:00:00 [facility] HIB 4 Dose Schedule 1997 Completed [facility] rs[facility] 00:00:00 [facility] Hep B, Adol or Pedi 1997 Completed Unive rsity of Dosage 00:00:00 [facility] DTAP 1997 Completed [facility] 00:00:00 [facility] HIB 4 Dose Schedule 1997 Completed [facility]ive rsity of 00:00:00 [facility] Hep B, Adol or Pedi 1997 Completed Unive rsity of Dosage 00:00:00 [facility] DTAP 1997 Completed [facility] 00:00:00 [facility] HIB 4 Dose Schedule 1997 Completed [facility] rsity of 00:00:00 [facility] Hep B, Adol or Pedi 1997 Completed [facility]ive rsity of Dosage 00:00:00 [facility] DTAP 1997 Completed [facility] 00:00:00 [facility] HIB 4 Dose Schedule 1997 Completed [facility] rsity of 00:00:00 [facility] Hep B, Adol or Pedi 1997 Completed [facility]ive rsity of Dosage 00:00:00 [facility] DTAP 1997 Completed [facility] 00:00:00 [facility] HIB 4 Dose Schedule 1997 Completed [facility] rsity of 00:00:00 [facility] Hep B, Adol or Pedi 1997 Completed [facility]ive rsity of Dosage 00:00:00 [facility] DTAP 1997 Completed [facility] 00:00:00 [facility] HIB 4 Dose Schedule 1997 Completed [facility] rsity of 00:00:00 [facility] Hep B, Adol or Pedi 1997 Completed [facility]ive rsity of Dosage 00:00:00 [facility] DTAP 1997 Completed [facility] 00:00:00 [facility] HIB 4 Dose Schedule 1997 Completed [facility] rsity of 00:00:00 [facility] Hep B, Adol or Pedi 1997 Completed [facility]ive rsity of Dosage 00:00:00 [facility] DTAP 1997 Completed [facility] 00:00:00 [facility] HIB 4 Dose Schedule 1997 Completed [facility] rsity of 00:00:00 [facility] Hep B, Adol or Pedi 1997 Completed Unive rsity of Dosage 00:00:00 [facility] DTAP 1997 Completed [facility] 00:00:00 [facility] HIB 4 Dose Schedule 1997 Completed [facility]ive rsity of 00:00:00 [facility] Hep B, Adol or Pedi 1997 Completed [facility]ive rsity of Dosage 00:00:00 [facility] DTAP 1997 Completed [facility] 00:00:00 [facility] HIB 4 Dose Schedule 1997 Completed [facility] rsity of 00:00:00 [facility] Hep B, Adol or Pedi 1997 Completed Unive rsity of Dosage 00:00:00 [facility] DTAP 1997 Completed [facility] 00:00:00 [facility] HIB 4 Dose Schedule 1997 Completed [facility] rsity of 00:00:00 [facility] Hep B, Adol or Pedi 1997 Completed [facility]ive rsity of Dosage 00:00:00 [facility] DTAP 1997 Completed [facility] 00:00:00 [facility] HIB 4 Dose Schedule 1997 Completed [facility]ive rsity of 00:00:00 [facility] Hep B, Adol or Pedi 1997 Completed [facility]ive rsity of Dosage 00:00:00 [facility] DTAP 1997 Completed [facility] 00:00:00 [facility] HIB 4 Dose Schedule 1997 Completed [facility] rsity of 00:00:00 [facility] Hep B, Adol or Pedi 1997 Completed [facility]ive rsity of Dosage 00:00:00 [facility] DTAP 1997 Completed [facility] 00:00:00 [facility] HIB 4 Dose Schedule 1997 Completed [facility] rsity of 00:00:00 [facility] Hep B, Adol or Pedi 1997 Completed [facility]ive rsity of Dosage 00:00:00 [facility] DTAP 1997 Completed [facility] 00:00:00 [facility] HIB 4 Dose Schedule 1997 Completed [facility] rsity of 00:00:00 [facility] Hep B, Adol or Pedi 1997 Completed [facility] rsity of Dosage 00:00:00 [facility] DTAP 1997 Completed [facility] 00:00:00 [facility] HIB 4 Dose Schedule 1997 Completed [facility] rs[facility] 00:00:00 [facility] Hep B, Adol or Pedi 1997 Completed [facility] rsity of Dosage 00:00:00 [facility] DTAP 1997 Completed [facility] 00:00:00 [facility] HIB 4 Dose Schedule 1997 Completed [facility] rs[facility] 00:00:00 [facility] Polio (IPV/OPV) 1997 Completed [facility] 00:00:00 [facility] DTAP 1997 Completed [facility] 00:00:00 [facility] HIB 4 Dose Schedule 1997 Completed [facility] rs[facility] 00:00:00 [facility] Polio (IPV/OPV) 1997 Completed [facility] 00:00:00 [facility] DTAP 1997 Completed [facility] 00:00:00 [facility] HIB 4 Dose Schedule 1997 Completed [facility] rs[facility] 00:00:00 [facility] Polio (IPV/OPV) 1997 Completed [facility] 00:00:00 [facility] DTAP 1997 Completed [facility] 00:00:00 [facility] HIB 4 Dose Schedule 1997 Completed [facility] rs[facility] 00:00:00 [facility] Polio (IPV/OPV) 1997 Completed [facility] 00:00:00 [facility] DTAP 1997 Completed [facility] 00:00:00 [facility] HIB 4 Dose Schedule 1997 Completed [facility] rs[facility] 00:00:00 [facility] Polio (IPV/OPV) 1997 Completed [facility] 00:00:00 [facility] DTAP 1997 Completed [facility] 00:00:00 [facility] HIB 4 Dose Schedule 1997 Completed [facility] rs[facility] 00:00:00 [facility] Polio (IPV/OPV) 1997 Completed [facility] 00:00:00 [facility] DTAP 1997 Completed [facility] 00:00:00 [facility] HIB 4 Dose Schedule 1997 Completed [facility] rs[facility] 00:00:00 [facility] Polio (IPV/OPV) 1997 Completed [facility] 00:00:00 [facility] DTAP 1997 Completed [facility] 00:00:00 [facility] HIB 4 Dose Schedule 1997 Completed [facility] rs[facility] 00:00:00 [facility] Polio (IPV/OPV) 1997 Completed [facility] 00:00:00 [facility] DTAP 1997 Completed [facility] 00:00:00 [facility] HIB 4 Dose Schedule 1997 Completed [facility] 00:00:00 [facility] Polio (IPV/OPV) 1997 Completed [facility] 00:00:00 [facility] DTAP 1997 Completed [facility] 00:00:00 [facility] HIB 4 Dose Schedule 1997 Completed [facility] 00:00:00 [facility] Polio (IPV/OPV) 1997 Completed [facility] 00:00:00 [facility] DTAP 1997 Completed [facility] 00:00:00 [facility] HIB 4 Dose Schedule 1997 Completed [facility] 00:00:00 [facility] Polio (IPV/OPV) 1997 Completed [facility] 00:00:00 [facility] DTAP 1997 Completed [facility] 00:00:00 [facility] HIB 4 Dose Schedule 1997 Completed [facility] 00:00:00 [facility] Polio (IPV/OPV) 1997 Completed [facility] 00:00:00 [facility] DTAP 1997 Completed [facility] 00:00:00 [facility] HIB 4 Dose Schedule 1997 Completed [facility] 00:00:00 [facility] Polio (IPV/OPV) 1997 Completed [facility] 00:00:00 [facility] DTAP 1997 Completed [facility] 00:00:00 [facility] HIB 4 Dose Schedule 1997 Completed [facility] 00:00:00 [facility] Polio (IPV/OPV) 1997 Completed [facility] 00:00:00 [facility] DTAP 1997 Completed [facility] 00:00:00 [facility] HIB 4 Dose Schedule 1997 Completed [facility] 00:00:00 [facility] Polio (IPV/OPV) 1997 Completed [facility] 00:00:00 [facility] DTAP 1997 Completed [facility] 00:00:00 [facility] HIB 4 Dose Schedule 1997 Completed [facility] 00:00:00 [facility] Polio (IPV/OPV) 1997 Completed [facility] 00:00:00 [facility] DTAP 1997 Completed [facility] 00:00:00 [facility] HIB 4 Dose Schedule 1997 Completed [facility] 00:00:00 [facility] Hep B, Adol or Pedi 1997 Completed [facility] of Dosage 00:00:00 [facility] Polio (IPV/OPV) 1997 Completed [facility] 00:00:00 [facility] DTAP 1997 Completed [facility] 00:00:00 [facility] HIB 4 Dose Schedule 1997 Completed [facility] 00:00:00 [facility] Hep B, Adol or Pedi 1997 Completed [facility] Dosage 00:00:00 [facility] Polio (IPV/OPV) 1997 Completed [facility] 00:00:00 [facility] DTAP 1997 Completed [facility] 00:00:00 [facility] HIB 4 Dose Schedule 1997 Completed [facility] 00:00:00 [facility] Hep B, Adol or Pedi 1997 Completed [facility] of Dosage 00:00:00 [facility] Polio (IPV/OPV) 1997 Completed [facility] 00:00:00 [facility] DTAP 1997 Completed [facility] 00:00:00 [facility] HIB 4 Dose Schedule 1997 Completed [facility] 00:00:00 [facility] Hep B, Adol or Pedi 1997 Completed [facility] Dosage 00:00:00 [facility] Polio (IPV/OPV) 1997 Completed [facility] 00:00:00 [facility] DTAP 1997 Completed [facility] 00:00:00 [facility] HIB 4 Dose Schedule 1997 Completed [facility] 00:00:00 [facility] Hep B, Adol or Pedi 1997 Completed Unive rsity of Dosage 00:00:00 [facility] Polio (IPV/OPV) 1997 Completed Universit y of 00:00:00 [facility] DTAP 1997 Completed University of 00:00:00 [facility] HIB 4 Dose Schedule 1997 Completed Unive rsity of 00:00:00 [facility] Hep B, Adol or Pedi 1997 Completed Unive rsity of Dosage 00:00:00 [facility] Polio (IPV/OPV) 1997 Completed Universit y of 00:00:00 [facility] DTAP 1997 Completed University of 00:00:00 [facility] HIB 4 Dose Schedule 1997 Completed Unive rsity of 00:00:00 [facility] Hep B, Adol or Pedi 1997 Completed Unive rsity of Dosage 00:00:00 [facility] Polio (IPV/OPV) 1997 Completed Universit y of 00:00:00 [facility] DTAP 1997 Completed University of 00:00:00 [facility] HIB 4 Dose Schedule 1997 Completed Unive rsity of 00:00:00 [facility] Hep B, Adol or Pedi 1997 Completed Unive rsity of Dosage 00:00:00 [facility] Polio (IPV/OPV) 1997 Completed Universit y of 00:00:00 [facility] DTAP 1997 Completed University of 00:00:00 [facility] HIB 4 Dose Schedule 1997 Completed Unive rsity of 00:00:00 [facility] Hep B, Adol or Pedi 1997 Completed Unive rsity of Dosage 00:00:00 [facility] Polio (IPV/OPV) 1997 Completed Universit y of 00:00:00 [facility] DTAP 1997 Completed University of 00:00:00 [facility] HIB 4 Dose Schedule 1997 Completed Unive rsity of 00:00:00 [facility] Hep B, Adol or Pedi 1997 Completed Unive rsity of Dosage 00:00:00 [facility] Polio (IPV/OPV) 1997 Completed Universit y of 00:00:00 [facility] DTAP 1997 Completed University of 00:00:00 [facility] HIB 4 Dose Schedule 1997 Completed Unive rsity of 00:00:00 [facility] Hep B, Adol or Pedi 1997 Completed Unive rsity of Dosage 00:00:00 [facility] Polio (IPV/OPV) 1997 Completed Universit y of 00:00:00 [facility] DTAP 1997 Completed University of 00:00:00 [facility] HIB 4 Dose Schedule 1997 Completed Unive rsity of 00:00:00 [facility] Hep B, Adol or Pedi 1997 Completed Unive rsity of Dosage 00:00:00 [facility] Polio (IPV/OPV) 1997 Completed Universit y of 00:00:00 [facility] DTAP 1997 Completed University of 00:00:00 [facility] HIB 4 Dose Schedule 1997 Completed Unive rsity of 00:00:00 [facility] Hep B, Adol or Pedi 1997 Completed Unive rsity of Dosage 00:00:00 [facility] Polio (IPV/OPV) 1997 Completed Universit [facility] of 00:00:00 [facility] DTAP 1997 Completed University of 00:00:00 [facility] HIB 4 Dose Schedule 1997 Completed Unive rsity of 00:00:00 [facility] Hep B, Adol or Pedi 1997 Completed Unive rsity of Dosage 00:00:00 [facility] Polio (IPV/OPV) 1997 Completed Universit y of 00:00:00 [facility] DTAP 1997 Completed University of 00:00:00 [facility] HIB 4 Dose Schedule 1997 Completed Unive rsity of 00:00:00 [facility] Hep B, Adol or Pedi 1997 Completed Unive rsity of Dosage 00:00:00 [facility] Polio (IPV/OPV) 1997 Completed Universit y of 00:00:00 [facility] DTAP 1997 Completed University of 00:00:00 [facility] HIB 4 Dose Schedule 1997 Completed Unive rsity of 00:00:00 [facility] Hep B, Adol or Pedi 1997 Completed Unive rsity of Dosage 00:00:00 [facility] Polio (IPV/OPV) 1997 Completed Universit y of 00:00:00 [facility] Hep B, Adol or Pedi 1997 Completed Unive rsity of Dosage 00:00:00 [facility] Hep B, Adol or Pedi 1997 Completed Unive rsity of Dosage 00:00:00 [facility] Hep B, Adol or Pedi 1997 Completed Unive rsity of Dosage 00:00:00 [facility] Hep B, Adol or Pedi 1997 Completed Unive rsity of Dosage 00:00:00 [facility] Hep B, Adol or Pedi 1997 Completed Unive rsity of Dosage 00:00:00 [facility] Hep B, Adol or Pedi 1997 Completed Unive rsity of Dosage 00:00:00 [facility] Hep B, Adol or Pedi 1997 Completed Unive rsity of Dosage 00:00:00 [facility] Hep B, Adol or Pedi 1997 Completed Unive rsity of Dosage 00:00:00 [facility] Hep B, Adol or Pedi 1997 Completed Unive rsity of Dosage 00:00:00 [facility] Hep B, Adol or Pedi 1997 Completed Unive rsity of Dosage 00:00:00 [facility] Hep B, Adol or Pedi 1997 Completed Unive rsity of Dosage 00:00:00 [facility] Hep B, Adol or Pedi 1997 Completed Unive rsity of Dosage 00:00:00 [facility] Hep B, Adol or Pedi 1997 Completed Unive rsity of Dosage 00:00:00 [facility] Hep B, Adol or Pedi 1997 Completed Unive rsity of Dosage 00:00:00 [facility] Hep B, Adol or Pedi 1997 Completed Unive rsity of Dosage 00:00:00 [facility] Hep B, Adol or Pedi 1997 Completed Unive rsity of Dosage 00:00:00 [facility] Vital Signs Vital Name Observation Time Observation Value Comments Source Systolic blood 2022-11-16 20:04:00 113 mm[Hg] Univer sity of pressure [facility] Diastolic blood 2022-11-16 20:04:00 76 mm[Hg] Unive rsity of pressure [facility] Heart rate 2022-11-16 20:04:00 107 /min Universi ty [facility] Body temperature 2022-11-16 20:04:00 37 Carmen [facility] 2022-11-16 20:04:00 15 /min [facility] Body height 2022-11-16 20:04:00 165.1 cm Universi ty [facility] Body weight 2022-11-16 20:04:00 80.287 kg Universi ty [facility] BMI 2022-11-16 20:04:00 29.45 kg/m2 Univers ty [facility] Oxygen saturation in 2022-11-16 20:04:00 99 /min [facility] Arterial blood by [facility] Pulse oximetry Branch Systolic blood 2022-06-19 22:10:00 128 mm[Hg] Univer sity of pressure [facility] Diastolic blood 2022-06-19 22:10:00 79 mm[Hg] Unive rsity of pressure [facility] Heart rate 2022-06-19 22:10:00 97 /min Universi ty of [facility] Body temperature 2022-06-19 22:10:00 36.72 Carmen [facility] Respiratory rate 2022-06-19 22:10:00 16 /min Univ ersity [facility] Body height 2022-06-19 22:10:00 165.1 cm Universi ty [facility] Body weight 2022-06-19 22:10:00 85.412 kg [facility] BMI 2022-06-19 22:10:00 31.33 kg/m2 [facility] Oxygen saturation in 2022-06-19 22:10:00 99 /min University Arterial blood by [facility] Pulse oximetry [place] Procedures Procedure Date / Time Performed Performing Clinician [facility] e ASSIGNMENT OF BENEFITS 2022-11-16 19:59:35 Doctor Unassigned, No [facility] Encounters Start End Encounter Admission Attending Care Care Encounter Source Date/Time Date/Time Type Type Clinicians Facility Department ID 2021-05-16 Outpatient R MAXIMINO ROSARIO [facility] VLS [id number] Univers 16:38:01 ity [facility] 2022-11-16 2022-11-16 Outpatient R AMANDA [facility] [id number] Univers 15:00:00 16:09:13 [facility]22-[facility]-16 2022-11-16 Urgent Kurtis Patel [facility] 1.2.840.1 [id number] Univers 15:00:00 16:09:13 Care Unknown, Attending HEALTH 350.1.13.10 ity of [facility] 4.2.7.2.686 Maikel as LEO?BLEA [phone] Ri val MARCOS [address] [place] MEDICAL OFFICE BUILDING 2022-11-16 2022-11-16 Orders Doctor MONTES 1.2.840.114 [id number] Univers 00:00:00 00:00:00 Only Unassigned, KRISSY 350.1.13.10 ity of [place] [facility] 4.2.7.2.686 Maikel as [id number] [facility] [address] Branch 2022-09-18 2022-09-18 Outpatient R MATEUSZ [facility] [id number] Univers 16:00:00 16:00:00 [facility] 2022-09-18 2022-09-18 Telephone Theo [facility] 1.2.427.913 [id number] Univers 00:00:00 00:00:00 Kristopher BRIGGS 350.1.13.10 it[place] [phone] Ri val CASTELLANOS 072 [facility] 2022-06-27 2022-06-27 Outpatient R MATEUSZ [facility] [id number] Univers 15:15:00 15:15:00 ARRON jeffrey [facility] 2022-06-19 2022-06-19 Outpatient R MATEUSZ [facility] [id number] Univers 16:00:00 16:44:04 ARRON suarez [facility] 2022-06-19 2022-06-19 Office Kristopher Venegas [facility] 1.2.840.114 [id number] Univers 16:00:00 16:44:04 Visit Arron Child SPECIALTY 350.1.13.10 it[place] [id number] [address] 2022-06-16 2022-06-16 Telephone Sedrick [facility] 1.2.840.114 [id number] Univers 00:00:00 00:00:00 [place] SPECIALTY 350.1.13.10 it[place] [id number] [address] 2022-06-11 2022-06-11 Nurse JYOTI Heart 1.2.840.114 [id number] Univers 00:00:00 00:00:00 Triage Moisés REY 350.1.13.10 ity of [facility] 4.2.7.2.686 Maikel as [phone] [address] 2022-06-11 2022-06-11 Telephone [facility] 1.2.840.114 [id number] Univers 00:00:00 00:00:00 [place] SPECIALTY 350.1.13.10 [place] [id number] [address] 2022-04-18 2022-04-18 Telephone [facility] 1.2.840.114 [id number] Univers 00:00:00 00:00:00 Jun Fall MATH INTERVENTIONIST 350.1.13.10 ity of [facility] 4.2.7.2.686 Maikel as MATERNAL [phone] Med ical & CHILD [address] [facility] 2022-04-18 2022-04-18 Refill [facility] 1.2.081.066 [id number] Univers 00:00:00 00:00:00 Jun C MATH INTERVENTIONIST 350.1.13.10 ity of REGIONAL 4.2.7.2.686 Maikel as MATERNAL [phone] [facility] [address] [place] [address] 2022-03-31 2022-03-31 Telephone [facility] 1.2.840.114 [id number] Univers 00:00:00 00:00:00 Jun C MATH INTERVENTIONIST 350.1.13.10 ity of REGIONAL 4.2.7.2.686 Maikel as MATERNAL [phone] [facility] [address] [place] [address] 2022-03-31 2022-03-31 Telephone [facility] 1.2.840.114 [id number] Univers 00:00:00 00:00:00 Jun C MATH INTERVENTIONIST 350.1.13.10 ity of REGIONAL 4.2.7.2.686 Maikel as MATERNAL [phone] [facility] & CHILD [address] [place] [address] 2022-03-28 2022-03-28 Office [facility] 1.2.111.115 [id number] Univers 15:45:00 16:22:23 Visit Jun C MATH INTERVENTIONIST 350.1.13.10 ity of REGIONAL 4.2.7.2.686 Maikel as MATERNAL [id number] [facility] [address] [place] [address] 2022-03-28 2022-03-28 Outpatient R AKINSIPE, [facility] [id number] Univers 15:45:00 16:22:23 JUN ity o f [facility] 2022-03-28 2022-03-28 Outpatient R AKINSIPE, [facility] [id number] Univers 15:45:00 15:45:00 JUN ity o f [facility] 2022-03-27 2022-03-27 Telephone [facility] 1.2.879.362 [id number] Univers 00:00:00 00:00:00 Rosnda R MATH INTERVENTIONIST 350.1.13.10 ity of REGIONAL 4.2.7.2.686 Maikel as MATERNAL [phone] [facility] & [address] 2022-03-17 2022-03-17 Telephone [facility] 1.2.122.965 [id number] Univers 00:00:00 00:00:00 Rosnda R MATH INTERVENTIONIST 350.1.13.10 ity of REGIONAL 4.2.7.2.686 Maikel as MATERNAL [id number] [facility] CHILD [address] [place] [address] 2022-03-14 2022-03-14 Telephone [facility] 1.2.282.730 [id number] [facility] 00:00:00 00:00:00 Rosnda R MATH INTERVENTIONIST 350.1.13.10 ity of REGIONAL 4.2.7.2.686 Maikel as MATERNAL [id number] [address] 2022-03-08 2022-03-08 [facility] [id number] Univers 08:30:00 08:55:09 ROSNDA ity o f [facility] 2022-03-08 2022-03-08 Office [facility] 1.2.840.114 [id number] Univers 08:30:00 08:55:09 [facility]IONIST 350.1.13.10 ity of REGIONAL 4.2.7.2.686 Maikel as MATERNAL [id number] [address] 2022-03-08 2022-03-08 Outpatient R [facility] [id number] Univers 08:30:00 08:55:09 ROSNDA ity o f [facility] 2022-03-04 2022-03-04 Patient Maureen [facility] 1.2.840.114 [id number] Univers 00:00:00 00:00:00 Secure [facility] 350.1.13.10 ity of [place] 4.2.7.2.686 Maikel as LEO?BLEA [phone] [address] MEDICAL OFFICE [facility] 2022-03-02 2022-03-02 Outpatient [facility] [id number] Univers 13:09:08 23:59:00 JAMAR ity of [facility] 2022-03-02 2022-03-02 Hospital [facility] 1.2.840.114 [id number] Univers 13:09:08 23:59:00 Encounter Jamar HEALTH 350.1.13.10 ity of [place] 4.2.7.2.686 Maikel as LEO?BLEA [phone] Ri dicmain MARCOS [address] [place] MEDICAL OFFICE [facility] 2022-03-02 2022-03-02 [facility] 1.2.840.114 [id number] Univers 12:40:00 13:15:58 Care Jamar HEALTH 350.1.13.10 it y of [place] 4.2.7.2.686 Maikel as LEO?BLEA [id number] Ri dicmain BERNARD 370 [facility] OFFICE [facility] 2022-01-23 2022-01-23 Patient HUBERT MooreBREA 1.2.840.114 [id number] Univers 00:00:00 00:00:00 Secure Msg Marco Gene HEALTH 350.1.13.10 ity of CLINICS [place].2.7.2.[place] [id number] [facility] [address] [place] [address] 2022-01-10 2022-01-10 Telephone Abraham [facility] 1.2.840.114 [id number] Univers 00:00:00 00:00:00 [facility] 350.1.13.10 [place] [phone] Ri val CASTELLANOS [address] [place] [address] 2022-01-09 2022-01-09 Outpatient R ABRAHAM [facility] [id number] Univers 13:39:00 15:55:00 ity of [facility] 2022-01-09 2022-01-09 Hospital Abraham [facility] 1.2.840.114 [id number] Univers 13:39:00 15:55:00 Encounter [facility] HEALTH 350.1.13.10 ity of [facility] 4.2.7.2.[address] [facility] [id number] [address] ([facility]) 2022-01-09 2022-01-09 Surgery Maximino Rosario [facility] 1.2.745.770 [id number] Univers 14:30:00 15:15:00 Nisha BRIGGS 350.1.13.10 ity of [facility] 4.2.7.[address] [place] [address] AT [phone] Ri dical [address] 2022-01-09 2022-01-09 Orders Doctor JYOTI 1.2.840.114 [id number] Univers 00:00:00 00:00:00 Only Unassigned, KRISSY 350.1.13.10 ity of [place] [facility] 4.2.7.2.[address] [place] [id number] 2022-01-08 2022-01-08 Outpatient R PRETTY WEBSTER [facility] [id number] Univers 15:00:00 15:00:00 PRETTY WEBSTER ity of [facility] 2022-01-08 2022-01-08 Telephone [facility] 1.2.275.563 [id number] Univers 00:00:00 00:00:00 Tay GUARDADOPEC 350.1.13.10 ity of IALTY 4.2.7.2.[address] [place] [phone] [facility] 2022-01-07 2022-01-07 Telephone [facility] 1.2.115.557 [id number] Univers 00:00:00 00:00:00 Tay GUARDADOPEC 350.1.13.10 ity of IALTY 4.2.7.2.[address] [place] [phone] [facility] 2022-01-06 2022-01-06 Laboratory Only, Adc Test [facility] 1.2.840. 114 [id number] Univers 16:00:00 16:15:00 Only Maximino Rosario 350.1.13.10 ity of [place] 4.2.7.[address] [place] [address] [id number] [facility] [address] 2022-01-06 2022-01-06 Outpatient R MAXIMINO ROSARIO [facility] [id number] Univers 16:00:00 16:00:00 ity of [facility] 2022-01-02 2022-01-02 Telephone Raquel [facility] 1.2.432.685 [id number] Univers 00:00:00 00:00:00 Tay GUARDADOPEC 350.1.13.10 ity of IALTY 4.2.7.2.686 [facility] [id number] [facility] AND BYERS [address] [place] [facility] 2022-01-02 2022-01-02 Patient Raquel [facility] 1.2.840.114 [id number] Univers 00:00:00 00:00:00 Secure Msg Tay Zhao SPECIALTY 350.1.13.10 ity of CARE 4.2.7.2.686 [facility] s [place] AT [phone] Ri val VERDONY 2 [facility] 2021-12-23 2021-12-23 Supervisor Lace Tearing Pham Khanna Lab Main [facility] 1.2.8 40.114 [id number] Univers 17:15:00 17:30:00 Visit Tay García 350.1.13.10 ity of [place] 4.2.7.2.686 [facility] [id number] Ri dicmain NAL 353 [facility] 2021-12-23 2021-12-23 Outpatient [facility] [id number] Univers 17:15:00 17:15:00 TAY suarez of [facility] 2021-12-20 2021-12-20 Supervisor Lace Tearing Vt-Lab [facility] 1.2.840.114 [id number] Univers 11:15:00 11:30:00 Visit Tay García 350.1.13.10 ity of IALTY 4.2.7.2.686 [facility] [place] [phone] [facility] AND BYERS [address] [place] [facility] 2021-12-20 2021-12-20 Supervisor Lace Tearing Vt-Lab [facility] 1.2.840.114 [id number] Univers 11:15:00 11:30:00 Visit Tay García GEOPEC 350.1.13.10 ity of IALTY 4.2.7.2.686 [facility] [id number] [facility] [address] [place] [facility] 2021-12-20 2021-12-20 Outpatient [facility] [id number] Univers 09:30:00 11:25:41 TAY suarez [facility] 2021-12-20 2021-12-20 Office [facility] 1.2.840.114 [id number] Univers 09:30:00 11:25:41 Visit Tay Zhao [facility] 350.1.13.10 ity of IALTY 4.2.7.2.686 [facility] [phone] [place] 8[address]572 [place] [facility] 2021-12-20 2021-12-20 Outpatient [facility] [id number] Univers 09:30:00 11:25:41 TAY suarez [facility] 2021-12-20 2021-12-20 Orders Doctor JYOTI 1.2.840.114 [id number] Univers 00:00:00 00:00:00 Only Unassigned, KRISSY 350.1.13.10 ity [facility] 4.2.7.2.686 Maikel as [id number] [address] 2021-12-07 2021-12-07 [facility] [id number] Univers 14:20:00 15:10:49 RADHIKA nunezy o f [facility] 2021-12-07 2021-12-07 Urgent [facility] 1.2.840.114 [id number] Univers 14:20:00 15:10:49 Care [facility] 350.1.13.10 ity of [place] 4.2.7.2.686 Maikel as LEO?BLEA [phone] [address] MEDICAL OFFICE BUILDING 2021-12-07 2021-12-07 Outpatient [facility] [id number] Univers 14:20:00 15:10:49 RADHIKA ity o f [facility] 2021-10-30 2021-10-30 Outpatient R ALEKSANDR [facility] [id number] Univers 14:45:00 14:45:00 ARCELIA ity o [facility] 2021-10-30 2021-10-30 Outpatient R ALEKSANDR [facility] [id number] Univers 14:45:00 14:45:00 ARCELIA ity o [facility] 2021-10-24 2021-10-24 Office [facility] 1.2.840.114 [id number] Univers 13:45:00 14:00:00 Visit Stoney CLAUDIO 350.1.13.10 i ty of [facility] 4.2.7.2.686 [place] [id number] [address] 2021-10-24 2021-10-24 Outpatient Ana PALMA [facility] [id number] Univers 13:45:00 13:45:00 [facility] 2021-10-22 2021-10-22 Outpatient Ana PALMA [facility] [id number] Univers 16:15:00 16:15:00 [facility] 2021-10-22 2021-10-22 Outpatient R MINERVA [facility] [id number] Univers 16:15:00 16:15:00 [facility] 2021-10-18 2021-10-18 Outpatient Ana MONTEIRO [facility] [id number] Univers 09:45:00 09:45:00 ROSHUNDA ity o [facility] 2021-10-18 2021-10-18 Outpatient Ana MONTEIRO [facility] [id number] Univers 09:45:00 09:45:00 ROSHUNDA ity o [facility] 2021-10-18 2021-10-18 Outpatient Ana THOMPSON [facility] [id number] Univers 08:30:00 08:30:00 CHAZ [facility] 2021-10-10 2021-10-10 [facility] 1.2.840.114 [id number] Univers 07:49:55 23:59:00 Encounter Stoney RAHUL 350.1.13.10 ity [facility] 4.2.7.2.686 [facility] [id number] [facility] [address] 2021-10-10 2021-10-10 Outpatient Ana PALMA [facility] [id number] Univers 07:49:55 23:59:00 [facility] 2021-10-03 2021-10-04 Office Minerva [facility] 1.2.840.114 [id number] Univers 14:45:00 11:00:18 Visit Stoney SNYDER 350.1.13.10 i ty of [facility] 4.2.7.2.[place] [id number] [facility] [address] 2021-10-03 2021-10-04 Outpatient Ana PALMA [facility] [id number] Univers 14:45:00 11:00:18 [facility] 2021-10-03 2021-10-03 Ancillary Sadiq Ritchie [facility] 1.2.840.11 [id number] Univers 15:30:00 16:15:00 Visit Stoney Palma 350.1.13.10 ity of EdwardsOrin [facility] 4.2.7.2.686 [place] [phone] [facility] [address] 2021-10-03 2021-10-03 Outpatient Ana PALMA [facility] [id number] Univers 14:45:00 14:45:00 [facility] 2021-10-03 2021-10-03 Outpatient Ana PALMA [facility] [id number] Univers 14:45:00 14:45:00 [facility] 2021-10-03 2021-10-03 Orders Doctor MONTES 1.2.840.114 [id number] Univers 00:00:00 00:00:00 Only Unassigned, KRISSY 350.1.13.10 ity of Community [facility] 4.2.7.2.686 Maikel as [phone] [facility] [address] 2021-09-17 2021-09-17 Outpatient R MAUREEN [facility] [id number] Univers 18:00:00 18:00:00 MORGAN [facility] 2021-09-17 2021-09-17 Orders Doctor JYOTI 1.2.840.114 [id number] Univers 00:00:00 00:00:00 Only Unassigned, KRISSY 350.1.13.10 ity of Community [facility] 4.2.7.2.686 Maikel as [id number] [address] 2021-07-31 2021-07-31 Refill [facility] 1.2.840.114 [id number] Univers 00:00:00 00:00:00 [facility] 350.1.13.10 ity of [place] 4.2.7.2.686 Maikel as LEO?BLEA [id number] [facility] [address] [place] MEDICAL OFFICE [facility] 2021-07-30 2021-07-30 Office Robinson [facility] 1.2.840.114 [id number] Univers 16:20:00 16:48:35 Visit [facility] 350.1.13.10 ity of [place] 4.2.7.2.686 Maikel as LEO?BLEA [phone] [facility] [address] [place] MEDICAL OFFICE [facility] 2021-07-30 2021-07-30 Outpatient MARCO GÓMEZ [facility] [id number] Univers 16:20:00 16:48:35 MARCO MOORE [facility] 2021-07-30 2021-07-30 Outpatient MARCO GÓMEZ [facility] [id number] Univers 16:20:00 16:20:00 MARCO MOORE [facility] 2021-07-30 2021-07-30 Outpatient Ana MONTEIRO [facility] [id number] Univers 13:00:00 13:50:05 JOSUE nunezy o f [facility] 2021-07-30 2021-07-30 Office Cayetano [facility] [id number] Univers 13:00:00 13:50:05 Visit Josue Perez MATH INTERVENTIONIST [id number] ity [facility] [id number] Maikel as MATERNAL [id number] Med ical & CHILD [address] [place] [address] 2021-07-30 2021-07-30 Outpatient R CAYETANO [facility] [id number] Univers 13:00:00 13:50:05 JOSUE suarez o f [facility] 2021-07-02 2021-07-02 Patient Robinson [facility] 1.2.840.114 [id number] Univers 00:00:00 00:00:00 [facility] 350.1.13.10 ity [facility] 4.2.7.2.686 Maikel as LEO?BLEA [phone] [facility] [place] [id number] [place] [facility] 2021-06-15 2021-06-17 Inpatient P KYLEIGH [facility] SHRADDHA [id number] Univers 12:01:00 17:56:00 JOSE joshi [facility] 2021-06-15 2021-06-17 Hospital JYOTI Arizmendi 1.2.597.092 [id number] Univers 12:01:00 17:56:00 Encounter Jose REY 350.1.13.10 ity of [facility] 4.2.7.2.686 Maikel as [phone] [facility] [address] [place] 2021-06-15 2021-06-16 Anesthesia Tripp Reyes 1.2.840.114 [id number] Univers 23:57:00 15:23:00 Event Bella Flores 350.1.13.10 ity [facility] 4.2.7.2.686 Maikel as [phone] [facility] [address] [place] 2021-06-12 2021-06-12 Outpatient R [facility] [id number] Univers 13:30:00 13:30:00 ity of [facility] 2021-06-09 2021-06-09 Telephone Jose Alfredo [facility] 1.2.840.114 [id number] Univers 00:00:00 00:00:00 Eduardo Shukla MATH INTERVENTIONIST 350.1.13.10 it y of [facility] 4.2.7.2.686 Maikel as MATERNAL [phone] Med ical & CHILD [address] [place] [address] 2021-06-06 2021-06-06 Routine Jose Alfredo [facility] 1.2.950.652 [id number] Univers 08:20:54 09:16:53 Eduardo N MATH INTERVENTIONIST 350.1.13.10 i ty of Visit REGIONAL 4.2.7.2.686 Maikel as MATERNAL [phone] Med ical & CHILD [address] [place] [address] 2021-06-06 2021-06-06 [facility] [id number] Univers 08:15:00 09:16:53 EDUARDO suarez [facility] 2021-06-06 2021-06-06 Outpatient [facility] [id number] Univers 08:15:00 08:15:00 EDUARDO suarez [facility] 2021-06-03 2021-06-03 Outpatient R [facility] [id number] Univers 09:00:00 09:00:00 daniela [facility] 2021-06-03 2021-06-03 Outpatient [facility] [id number] Univers 09:00:00 09:00:00 EDUARDO suarez [facility] 2021-06-03 2021-06-03 Telephone [facility] 1.2.840.114 [id number] Univers 00:00:00 00:00:00 Eduardo N MATH INTERVENTIONIST 350.1.13.10 it y of REGIONAL 4.2.7.2.686 Maikel as MATERNAL [phone] Med ical & CHILD [address] [place] [address] 2021-06-03 2021-06-03 Telephone [facility] 1.2.840.114 [id number] Univers 00:00:00 00:00:00 Eduardo N MATH INTERVENTIONIST 350.1.13.10 it y of REGIONAL 4.2.7.2.686 Maikel as MATERNAL [phone] Med ical & CHILD [address] [place] [address] 2021-05-31 2021-05-31 Routine [facility] 1.2.285.707 [id number] Univers 08:16:59 09:13:02 Eduardo N MATH INTERVENTIONIST 350.1.13.10 i ty of Visit REGIONAL 4.2.7.2.686 Maikel as MATERNAL [phone] Med ical & CHILD [address] [place] [address] 2021-05-31 2021-05-31 Outpatient [facility] [id number] Univers 08:15:00 09:13:02 EDUARDO suarez [facility] 2021-05-31 2021-05-31 Outpatient R JOSE ALFREDO [facility] [id number] Univers 08:15:00 09:13:02 EDUARDO suarez [facility] 2021-05-29 2021-05-29 Outpatient R JOSEA LFREDO [facility] [id number] Univers 07:45:00 07:45:00 EDUARDO suarez [facility] 2021-05-29 2021-05-29 Outpatient R [facility] [id number] Univers 07:45:00 07:45:00 EDUARDO suarez [facility] 2021-05-10 2021-05-10 Patient [facility] 1.2.397.472 [id number] Univers 00:00:00 00:00:00 Secure Msg Eduardo N MATH INTERVENTIONIST 350.1.13.10 ity of REGIONAL 4.2.7.2.686 Maikel as MATERNAL [id number] [facility] & [facility]ILD [address] [place] [address] 2021-05-09 2021-05-09 Outpatient R [facility] [id number] Univers 10:45:00 10:45:00 EDUARDO suarez [facility] 2021-05-03 2021-05-03 Routine [facility] 1.2.717.723 [id number] Univers 14:42:22 15:02:49 Eduardo N MATH INTERVENTIONIST 350.1.13.10 i ty of Visit REGIONAL 4.2.7.2.686 Maikel as MATERNAL [phone] [facility] & [address] 2021-05-03 2021-05-03 Outpatient R [facility] [id number] Univers 14:30:00 14:30:00 EDUARDO suarez [facility] 2021-04-29 2021-04-29 Routine [facility] 1.2.578.112 [id number] Univers 13:30:11 14:15:22 Eduardo N MATH INTERVENTIONIST 350.1.13.10 i ty of Visit REGIONAL 4.2.7.2.686 Maikel as MATERNAL [phone] [facility] ical & CHILD [address] [place] [address] 2021-04-29 2021-04-29 Supervisor Lace Tearing Ultrasound, [facility] 1.2 .840.114 [id number] Univers 11:19:05 12:04:05 Visit Zacarias Perez Jeffrey MATH INTERVENTIONIST 350.1.13.1 0 ity of REGIONAL 4.2.7.2.686 Maikel as MATERNAL [phone] Med ical & CHILD 369 [facility] 2021-04-29 2021-04-29 Outpatient P [facility] [id number] Univers 11:15:00 11:15:00 ity of [facility] 2021-04-23 2021-04-23 [facility] 1.2.321.961 [id number] Univers 00:00:00 00:00:00 Gi MATH INTERVENTIONIST 350.1.13.10 ity of REGIONAL 4.2.7.2.686 Maikel as MATERNAL [id number] Med ical & CHILD 130 [facility] 2021-04-22 2021-04-22 [facility] 1.2.733.973 [id number] Univers 00:00:00 00:00:00 Gi MATH INTERVENTIONIST 350.1.13.10 ity of REGIONAL 4.2.7.2.686 Maikel as MATERNAL [id number] [facility] 130 [facility] 2021-04-12 2021-04-12 Outpatient R CAYETANO [facility] [id number] Univers 08:30:00 08:30:00 JOSUE ity o f [facility] 2021-03-29 2021-03-29 [facility]ine [facility] 1.2.026.405 [id number] Univers 08:08:50 09:20:52 Jun Fall MATH INTERVENTIONIST 350.1.13.10 ity of Visit REGIONAL 4.2.7.2.686 Maikel as MATERNAL [id number] [facility] ical & CHILD 107 [facility] 2021-03-29 2021-03-29 Outpatient R ROSA [facility] [id number] Univers 08:00:00 08:00:00 JUN nunezy o f [facility] 2021-03-18 2021-03-18 Outpatient Ana LOPEZ [facility] [id number] Univers 10:15:00 10:15:00 RYAN daniela [facility] 2021-03-18 2021-03-18 Outpatient Ana LOPEZ [facility] [id number] Univers 10:15:00 10:15:00 RYAN suarez [facility] 2021-03-18 2021-03-18 Telephone Guanako [facility] 1.2.840.114 [id number] Univers 00:00:00 00:00:00 Ryan MATH INTERVENTIONIST 350.1.13.10 it y of REGIONAL 4.2.7.2.686 Maikel as MATERNAL [id number] [facility] & [address] 2021-03-01 2021-03-01 Telephone Helen COSETH 1.2.840.114 [id number] Univers 00:00:00 00:00:00 Gi MATH INTERVENTIONIST 350.1.13.10 ity of REGIONAL 4.2.7.2.686 Maikel as MATERNAL [id number] [facility] & [address] 2021-02-19 2021-02-19 Routine Helen [facility] 1.2.254.917 [id number] Univers 10:22:50 10:48:31 Gi MATH INTERVENTIONIST 350.1.13.10 ity of Visit REGIONAL 4.2.7.2.686 Maikel as MATERNAL [phone] [facility] & [address] 2021-02-19 2021-02-19 Outpatient Ana CERVANTES [facility] [id number] Univers 10:15:00 10:48:31 GI suarez [facility] 2021-02-19 2021-02-19 Outpatient Ana CERVANTES [facility] [id number] Univers 10:15:00 10:15:00 GI suarez [facility] 2021-02-06 2021-02-06 Nurse Ulices MONTES 1.2.840.114 [id number] Univers 00:00:00 00:00:00 Triage d Katietosin REY 350.1.13.10 ity of [facility] 4.2.7.2.686 Maikel as [phone] [address] 2021-02-04 2021-02-04 Telephone 1, [facility] 1.2.112.188 [id number] Univers 00:00:00 00:00:00 Maikel-Rmchp MATH INTERVENTIONIST 350.1.13.10 ity of [facility] 4.2.7.2.686 Maikel as MATERNAL [id number] [facility] & CHILD [address] [place] [address] 2021-01-30 2021-01-30 Outpatient R ROSA [facility] [id number] Univers 09:45:00 09:45:00 JUN suarez o [facility] 2021-01-30 2021-01-30 Supervisor Lace Tearing Ultrasound, [facility] 1.2 .840.114 [id number] Univers 08:39:57 09:31:50 Visit Tatyana Rodriguez MATH INTERVENTIONIST 350.1.13.10 ity of [facility] 4.2.7.2.686 Maikel as MATERNAL [phone] [facility] & CHILD [address] [place] [address] 2021-01-30 2021-01-30 Out[facility] [id number] Univers 08:30:00 09:31:50 TATYANA itjeffrey [facility] 2021-01-30 2021-01-30 Outpatient P [facility] [id number] Univers 08:30:00 08:30:00 ity [facility] 2021-01-30 2021-01-30 Dewey [facility] 1.2.840.114 [id number] Univers 00:00:00 00:00:00 Josue Perez MATH INTERVENTIONIST 350.1.13.10 ity of [facility] 4.2.7.2.686 Maikel as MATERNAL [phone] [facility] & CHILD [address] [place] [address] 2021-01-25 2021-01-25 Outpatient R CAYETANO [facility] [id number] Univers 08:45:00 08:45:00 JOSUE suarez o f [facility] 2021-01-21 2021-01-21 Office [facility] 1.2.840.114 [id number] Univers 15:04:16 15:52:56 Visit Marco Encarnacion 350.1.13.10 ity of [place] 4.2.7.2.686 [place] [phone] Ri dical [facility] 092 [facility] 2021-01-21 2021-01-21 [facility] 1.2.908.152 [id number] Univers 09:04:25 09:54:43 Gi MATH INTERVENTIONIST 350.1.13.10 ity of Visit REGIONAL 4.2.7.2.686 Maikel as MATERNAL [phone] [facility] & [address] 2021-01-21 2021-01-21 Outpatient [facility] [id number] Univers 08:30:00 08:30:00 [facility] 2021-01-21 2021-01-21 Telephone [facility] 1.2.840.114 [id number] Univers 00:00:00 00:00:00 Gi MATH INTERVENTIONIST 350.1.13.10 ity of REGIONAL 4.2.7.2.686 Maikel as MATERNAL [id number] [address] 2021-01-21 2021-01-21 Telephone [facility] 1.2.840.114 [id number] Univers 00:00:00 00:00:00 Gi MATH INTERVENTIONIST 350.1.13.10 ity of REGIONAL 4.2.7.2.686 Maikel as MATERNAL [phone] [facility] & [address] 2021-01-17 2021-01-17 Outpatient R [facility] [id number] Univers 12:45:00 12:45:00 ity [facility] 2021-01-17 2021-01-17 Outpatient R STU [facility] [id number] Univers 12:45:00 12:37:42 [facility] 2021-01-03 2021-01-03 Routine Cayetano [facility] 1.2.840.114 [id number] Univers 14:58:11 15:44:24 Roshunda R MATH INTERVENTIONIST 350.1.13.10 ity of Visit REGIONAL 4.2.7.2.686 Maikel as MATERNAL [phone] [facility] & CHILD [address] [place] [address] 2021-01-03 2021-01-03 Outpatient R CAYETANO [facility] [id number] Univers 15:00:00 15:00:00 ROSCHRISTINANDA ity o f [facility] 2021-01-02 2021-01-02 Telephone [facility] 1.2.018.916 [id number] Univers 00:00:00 00:00:00 Roschristinanda R MATH INTERVENTIONIST 350.1.13.10 ity of REGIONAL 4.2.7.2.686 Maikel as MATERNAL [phone] [facility] & CHILD [address] [place] [address] 2020-12-28 2020-12-28 [facility] [id number] Univers 08:30:00 08:30:00 SANKETNDA daniela o f [facility] 2020-12-20 2020-12-20 Routine Cayetano [facility] 1.2.840.114 [id number] Univers 10:59:37 11:27:33 Sanketnda R MATH INTERVENTIONIST 350.1.13.10 ity of Visit REGIONAL 4.2.7.2.686 Maikel as MATERNAL [phone] [address] 2020-12-20 2020-12-20 Outpatient R CAYETANO [facility] [id number] Univers 11:00:00 11:00:00 SANKETNDA itjeffrey o f [facility] 2020-12-03 2020-12-03 Outpatient R [facility] [id number] Univers 14:00:00 14:00:00 ity [facility] 2020-11-19 2020-11-19 Supervisor Lace Tearing Ultrasound, [facility] 1.2 .840.114 [id number] Univers 09:00:39 09:30:39 Visit Sanket Monteironda R MATH INTERVENTIONIST 350.1.13.10 ity of Jennifer Tatyana Perez REGIONAL 4.2.7.2.686 [place] MATERNAL [phone] [facility] ical & CHILD 369 [facility] 2020-11-19 2020-11-19 Routine [facility] 1.2.840.114 [id number] Univers 08:20:44 09:00:13 Kimberlyvern Perez MATH INTERVENTIONIST 350.1.13.10 ity of Visit REGIONAL 4.2.7.2.686 Maikel as MATERNAL [id number] Med ical & CHILD 107 [facility] 2020-11-19 2020-11-19 Outpatient [facility] [id number] Univers 08:15:00 08:15:00 JOSUE ity o f [facility] 2020-11-19 2020-11-19 Abstract [facility] 1.2.840.114 [id number] Univers 00:00:00 00:00:00 Josue Perez MATH INTERVENTIONIST 350.1.13.10 ity of [facility] 4.2.7.2.686 Maikel as MATERNAL [phone] [facility] & CHILD [address] [place] [address] 2020-11-13 2020-11-13 Outpatient P [facility] [id number] Univers 08:00:00 08:00:00 ity of [facility] 2020-11-12 2020-11-12 Outpatient R [facility] [id number] Univers 08:00:00 08:00:00 ity of [facility] 2020-11-07 2020-11-07 Patient Doctor JYOTI 1.2.840.114 [id number] Univers 00:00:00 00:00:00 Secure Msg Unassigned, KRISSY 350.1.13.10 ity of [place] [facility] 4.2.7.2.686 Maikel as [phone] [address] 2020-11-05 2020-11-05 Outpatient R JENNIFER [facility] [id number] Univers 14:15:00 14:15:00 [facility]NA [facility] 2020-11-05 2020-11-05 Telemedici Faculty[facility] 1.2.840.114 [id number] Univers 07:49:36 12:34:40 ne Visit Tatyana Rodriguez R MATH INTERVENTIONIST 350.1.13.10 ity of REGIONAL 4.2.7.2.686 Maikel as MATERNAL [id number] [facility] ical & CHILD [address] [place] [address] 2020-10-26 2020-10-26 Outpatient [facility] [id number] Univers 09:00:00 09:00:00 JUN suarez o [facility] 2020-10-22 2020-10-[address] 1.2.840.114 [id number] Univers 09:27:57 10:42:39 Sanketrosariosravan Ana MATH INTERVENTIONIST 350.1.13.10 ity of Visit REGIONAL 4.2.7.2.686 Maikel as MATERNAL [phone] [facility] & [address] 2020-10-22 2020-10-22 Outpatient R CAYETANO [facility] [id number] Univers 08:30:00 08:30:00 ROSVERN suarez o [facility] 2020-10-22 2020-10-22 Orders Doctor JYOTI 1.2.840.114 [id number] Univers 00:00:00 00:00:00 Only Unassigned, KRISSY 350.1.13.10 ity of [place] [facility] 4.2.7.2.686 Maikel as [phone] [address] 2020-10-12 2020-10-12 Outpatient R ROSA [facility] [id number] Univers 08:15:00 08:15:00 JUN babin [facility] 2020-10-03 2020-10-03 Orders Doctor JYOTI 1.2.840.114 [id number] Univers 00:00:00 00:00:00 Only Unassigned, KRISSY 350.1.13.10 ity of [place] [facility] 4.2.7.2.686 Maikel as [id number] [address] 2020-09-28 2020-09-28 Office [facility] 1.2.131.594 [id number] Univers 15:41:59 16:31:20 Visit Jun Fall MATH INTERVENTIONIST 350.1.13.10 ity of REGIONAL 4.2.7.2.686 Maikel as MATERNAL [phone] [facility] ical & CHILD [address] [place] [address] 2020-09-28 2020-09-28 [facility] [id number] Univers 15:15:00 15:15:00 JUN ity o [facility] 2020-09-28 2020-09-28 Outpatient R [facility] [id number] Univers 13:15:00 13:15:00 JUN ity o [facility] 2020-09-21 2020-09-21 Office [facility] 1.2.8 40.114 [id number] Univers 07:47:45 08:36:41 Visit Jazzy Antonio [facility] 350.1.13.10 ity of [facility] 4.2.7.2.686 [place] [phone] [address] 2020-09-21 2020-09-21 Outpatient R [facility] [id number] Univers 08:00:00 08:00:00 ity [facility] 2020-09-06 2020-09-06 Outpatient R [facility] [id number] Univers 15:30:00 15:30:[facility] 2020-09-03 2020-09-03 [facility] [id number] Univers 16:00:00 16:00:00 JUN ity o [facility] 2020-08-31 2020-08-31 Office [facility] 1.2.050.570 [id number] Univers 10:54:52 11:36:38 Visit Jun Fall MATH INTERVENTIONIST 350.1.13.10 ity of [facility] 4.2.7.2.686 Maikel as MATERNAL [id number] [facility] ical & CHILD [address] [place] [address] 2020-08-31 2020-08-31 Outpatient [facility] [id number] Univers 10:30:00 10:30:00 JUN ity o [facility] 2020-08-31 2020-08-31 Orders Doctor JYOTI 1.2.840.114 [id number] Univers 00:00:00 00:00:00 Only Unassigned, KRISSY 350.1.13.10 ity of [place] [address]686 Maikel as [phone] [address] 2020-08-02 2020-08-02 Outpatient BOUCHRA PEGUERO [facility] [id number] Univers 09:30:00 09:30:00 ity [facility] 2020-08-02 2020-08-02 Outpatient Ana PASTRANA [facility] [id number] Univers 09:30:00 09:30:00 [facility] 2020-06-15 2020-06-15 Outpatient Ana GAN [facility] [id number] Univers 16:40:00 16:40:00 CLAUDIO joshi [facility] 2020-05-02 2020-05-02 Telephone Helen [facility] 1.2.840.114 [id number] Univers 00:00:00 00:00:00 Gi MATH INTERVENTIONIST 350.1.13.10 ity of [place] [address].7.2.686 Maikel as MATERNAL [id number] [facility] CHILD [address] [place] [address] 2020-02-15 2020-02-15 Outpatient DANIKA MorrisCL OUTD [id number] [facility] 11:00:00 11:00:[address] [place] [address] 2020-02-06 2020-02-06 Telephone Helen [facility] 1.2.840.114 [id number] Univers 00:00:00 00:00:00 Gi MATH INTERVENTIONIST 350.1.13.10 ity of [place] [address].2.7.2.686 Maikel as MATERNAL [id number] [facility] ical & CHILD [address] [place] [address] 2020-01-18 2020-01-18 Refill Doctor [facility] 1.2.840.114 [id number] 00:00:00 00:00:00 Unassigned, MATH INTERVENTIONIST 350.1.13.10 [place] [address]686 MATERNAL [id number] & CHILD [address] [facility] 2020-01-18 2020-01-18 Refill Doctor [facility] 1.2.840.114 [id number] Univers 00:00:00 00:00:00 Unassigned, MATH INTERVENTIONIST 350.1.13.10 ity of [place] REGIONAL 4.2.7.2.686 Maikel as MATERNAL [id number] Med ical & CHILD 130 [facility] 2019-11-11 2019-11-11 Telephone [place], COMB 1.2.840.114 [id number] 00:00:00 00:00:00 Shauntrell MATH INTERVENTIONIST 350.1.13.10 REGIONAL 4.2.7.2.686 MATERNAL [id number] & CHILD [address] [place] [address] 2019-11-11 2019-11-11 Telephone [place], COMB 1.2.840.114 [id number] Univers 00:00:00 00:00:00 Shauntrell MATH INTERVENTIONIST 350.1.13.10 ity of REGIONAL 4.2.7.2.686 Maikel as MATERNAL [phone] Med ical & CHILD [address] [place] [address] 2019-11-09 2019-11-09 Telephone [place], COMB 1.2.840.114 [id number] 00:00:00 00:00:00 Shauntrell MATH INTERVENTIONIST 350.1.13.10 REGIONAL 4.2.7.2.686 MATERNAL [id number] & CHILD [address] [facility] 2019-11-09 2019-11-09 Telephone [place], COMB 1.2.840.114 [id number] Univers 00:00:00 00:00:00 Shauntrell MATH INTERVENTIONIST 350.1.13.10 ity of REGIONAL 4.2.7.2.686 Maikel as MATERNAL [phone] Med ical & CHILD 130 [facility] 2019-11-08 2019-11-08 Telephone [place], [facility] 1.2.840.114 [id number] 00:00:00 00:00:00 Shauntrell MATH INTERVENTIONIST 350.1.13.10 REGIONAL 4.2.7.2.686 MATERNAL [id number] & CHILD [address] [facility] 2019-11-08 2019-11-08 Telephone Helen [facility] 1.2.840.114 [id number] Univers 00:00:00 00:00:00 Gi MATH INTERVENTIONIST 350.1.13.10 ity of REGIONAL 4.2.7.2.686 Maikel as MATERNAL [id number] Med ical & CHILD [address] [place] [address] 2019-10-19 2019-10-19 Outpatient R UNKNOWN, [facility] [id number] Univers 17:00:00 17:00:00 ATTENDING ity of [facility] 2019-10-19 2019-10-19 [facility] 1.2.840.114 [id number] 00:00:00 00:00:00 Gi MATH INTERVENTIONIST 350.1.13.10 REGIONAL 4.2.7.2.686 MATERNAL [id number] & CHILD [address] [facility] 2019-10-19 2019-10-19 Patient Doctor [facility] 1.2.840.114 [id number] 00:00:00 00:00:00 Secure Msg Unassigned, MATH INTERVENTIONIST 350.1.13.10 [place] REG[place]AL 4.2.7.2.686 MATERNAL [phone] & CHILD [address] [place] [address] 2019-10-19 2019-10-19 Telephone [facility] 1.2.840.114 [id number] Univers 00:00:00 00:00:00 Gi MATH INTERVENTIONIST 350.1.13.10 ity of REGIONAL 4.2.7.2.686 Maikel as MATERNAL [id number] Med ical & CHILD [address] [place] [address] 2019-10-19 2019-10-19 Patient Doctor [facility] 1.2.840.114 [id number] Univers 00:00:00 00:00:00 Secure Msg Unassigned, MATH INTERVENTIONIST 350.1.13.10 ity of [place] [facility]AL 4.2.7.2.686 Maikel as MATERNAL [id number] Med ical & CHILD [address] [place] [address] 2019-07-26 2019-07-26 Patient Doctor [place] 1.2.840.114 [id number] 00:00:00 00:00:00 Secure Msg Unassigned, SPECIALTY 350.1.13.10 [place] CARE 4.2.7.2.686 CENTER AT [phone] EMANUEL Parrish [facility] 2019-07-26 2019-07-26 Patient Doctor [facility] 1.2.840.114 [id number] [facility] 00:00:00 00:00:00 Secure Msg Unassigned, SPECIALTY 350.1.13.10 it[place] [phone] Ri val Parrish [facility] 2019-03-18 2019-03-18 Prep For [facility] 1.2.840.114 [id number] 00:00:00 00:00:00 Surgery ise, SPECIALTY 350.1.13.10 [place] CARE 4.2.7.2.686 CENTER AT [phone] EMANUEL [address] [place] [address] 2019-03-18 2019-03-18 Prep For [facility] 1.2.840.114 [id number] [facility] 00:00:00 00:00:00 Surgery ise, SPECIALTY 350.1.13.10 ity [place] [phone] Ri val Cruz[address] [place] [address] 2019-03-16 2019-03-16 Telephone [facility] 1.2.840.114 [id number] [facility] 00:00:00 00:00:00 ise, SPECIALTY 350.1.13.10 ity [place] [phone] Ri val CASTELLANOS [address] [place] [address] 2019-03-14 2019-03-14 Telephone [facility] 1.2.840.114 [id number] 00:00:00 00:00:00 ise, SPECIALTY 350.1.13.10 [place] CARE 4.2.7.2.686 CENTER AT [phone] EMANUEL [address] [place] [address] 2019-03-14 2019-03-14 Telephone [facility] 1.2.840.114 [id number] [facility] 00:00:00 00:00:00 ise, SPECIALTY 350.1.13.10 ity of [place] [phone] Ri val CASTELLANOS 2 [facility] 2019-03-11 2019-03-11 Refill Denys [facility] 1.2.840.114 [id number] [facility] 00:00:00 00:00:00 Bella Zhao MATH INTERVENTIONIST 350.1.13.10 ity of REGIONAL 4.2.7.2.686 Maikel as MATERNAL [phone] Med ical & CHILD [address] [place] [address] 2019-03-09 2019-03-09 Telephone Denys [facility] 1.2.798.018 [id number] [facility] 00:00:00 00:00:00 Bella Zhao MATH INTERVENTIONIST 350.1.13.10 ity of REGIONAL 4.2.7.2.686 Maikel as MATERNAL [phone] Med ical & CHILD [address] [place] [address] 2019-02-18 2019-02-18 Supervisor Lace Tearing [facility] 1.2.840.114 [id number] [facility] 14:28:39 14:43:39 Visit Nidia Abdullahi SPECIALTY 350. 1.13.10 [place] [phone] Ri val CASTELLANOS [address] [facility] 2019-02-18 2019-02-18 Office Nimco [facility] [id number] [facility] 13:28:59 14:25:17 Visit ise, SPECIALTY [id number] ity of [place] [phone] Ri val CASTELLANOS [address] [place] [address] 2019-02-15 2019-02-15 Office DenysBella [facility] [id number] [facility] 13:22:48 14:41:54 Visit Gi Cervantes MATH INTERVENTIONIST 350.1.13. 10 ity of REGIONAL [id number] Maikel as MATERNAL [phone] Med ical & CHILD 130 [facility] 2019-02-15 2019-02-15 Orders Doctor JYOTI [id number] [facility] 00:00:00 00:00:00 Only Unassigned, KRISSY 350.1.13.10 ity of [place] [facility] 4.2.7.2.686 Maikel as [phone] [address] Results Test Description Test Time Test Comments Results Result [facility] e Comments - US TRANSVAGINAL 2020-02-15 Name: NELSON LABOY NON OB 11:41:00 [facility] : 1995 Age/S: 24 / F [address] [place] [address] Unit #: [id number] Loc: [place] [address] Phys: Sai Morris MD Acct: [id number] Dis Date: Status: REG CLI PHONE #: [phone] Exam Date: 02/15/2020 1130 FAX #: [phone] Reason: PELVIC PAIN EXAMS: CPT CODE: [id number] [place] [id number] PROCEDURE: PELVIC ULTRASOUND INDICATION: Pelvic pain COMPARISON: [...] Dominant follicle right ovary, 18 mm SL: [id number] at 1141 Reported and signed by: Maximino Aguilar M.D. CC: Sai Morris MD Technologist: Vidhya Azul RDMS(OB)(AB) Trnscb Date/Time: 02/15/2020 (114) MistyETG Orig Print D/T: S: 02/15/2020 (1144) Probe: [id number] PAGE 1 Signed Report - US PELVIS 2020-02-15 Name: NELSON LABOY COMPLETE 11:41:00 [facility] Moro : 1995 Age/S: 24 / F [address] [place] [address] Blvd Unit #: [id number] Loc: [place] [address] Phys: Sai Morris MD Acct: [id number] Dis Date: Status: REG CLI PHONE #: [phone] Exam Date: 02/15/2020 113 FAX #: [phone] Reason: PELVIC PAIN EXAMS: CPT CODE: [id number] US PELVIS COMPLETE [id number] PROCEDURE: PELVIC ULTRASOUND INDICATION: Pelvic pain COMPARISON: [...] Dominant follicle right ovary, 18 mm SL: [id number] at 1141 Reported and signed by: Maximino Aguilar M.D. CC: Sai Morris MD Technologist: Vidhya Azul RDMS(OB)(AB) Trnscb Date/Time: 02/15/2020 (1141) MistyETG Orig Print D/T: S: 02/15/2020 (1144) Probe: PAGE 1 Signed Report
[2023-01-19] MEDS ORDERED: dexAMETHasone 10 MG/ML VIAL ONE (09:35)
[2023-01-19] MEDS ORDERED: FAMOTIDINE 20 MG/2 ML VIAL IV ONE (09:36)
[2023-01-19] MEDS ORDERED: ONDANSETRON 4 MG/2 ML VIAL ONE (09:36)
[2023-01-19] MEDS ORDERED: NA CHLORIDE 0.9% 1,000 ML ONE (09:36)
[2023-01-19 09:38] LABS: Specific Gravity 1.011 (1.005-1.030); Urine Bilirubin NEGATIVE (Negative); Urine Blood Negative (Negative); Urine Clarity Clear (Clear); Urine Color Light-Yellow (Yellow); Urine Glucose NEGATIVE (Negative); Urine Protein NEGATIVE (Negative); Urine Urobilinogen Normal (Normal); Urine pH 7.5 (5.0-7.0)
[2023-01-19] MEDS ORDERED: KETOROLAC 30 MG/ML INJ ONE (09:38)
[2023-01-19 09:39] LABS: Absolute Lymphocytes (CBC) 3.1 K/uL (0.7-4.9); Hematocrit 42.6 % (36.0-45.0); Lymphocytes % 28.2 % (15.3-44.8); MCV 85.5 fL (80-100); MPV 7.7 fL (7.6-11.3); RBC Red Blood Cell Count 4.98 M/uL (3.86-4.86)
[2023-01-19 09:51] LABS: Specific Gravity 1.018 (1.005-1.030)
[2023-01-19 09:54] LABS: Albumin 4.2 g/dL (3.4-5.0); Bilirubin Total 0.3 mg/dL (0.2-1.0); Potassium 3.4 mEq/L (3.5-5.1); Protein, Total 7.7 g/dL (6.4-8.2)
--- NOTE | 2023-01-19 10:13 | EDPHYS ---
Physician Documentation [facility] Name: Mellisa Cordero Age: 27 yrs Sex: Female : 1995 Arrival Date: 01/19/2023 Time: 09:01 Bed 20 Private MD: ED Physician Dev Montoya HPI: 01/19 09:44 This 27 yrs old Female presents to ER via Ambulatory with complaints of Abdominal Pain. kb 09:44 The patient presents with abdominal pain that is diffuse. Onset: The symptoms/episode kb began/occurred 6 day(s) ago. The symptoms do not radiate. Associated signs and symptoms: Pertinent positives: pain with BM. The symptoms are described as constant. Modifying factors: The symptoms are alleviated by nothing, the symptoms are aggravated by nothing. Severity of pain: At its worst the pain was moderate in the emergency department the pain is unchanged. The patient has experienced similar episodes in the past. The patient has not recently seen a physician. Pt reports she has chronic abd pain and has episodes of worsening pain at times. States this time the pain got worse on Thursday. Reports she has been seen by GI and had a colonoscopy with a polyp removal, but was told it could take a long time to diagnose crohns or ulcerative colitis.. Historical: - Allergies: 09:21 No Known Allergies; os - PMHx: 09:22 Irritable bowel syndrome; os - Immunization history:: Adult Immunizations up to date. - Social history:: Smoking status: Patient reports the use of cigarette tobacco products, smokes one pack cigarettes per day. ROS: 09:44 Constitutional: Negative for fever, chills, and weight loss. kb 09:44 Abdomen/GI: Positive for abdominal pain, pain with bowel movements. 09:44 All other systems are negative. Exam: 09:43 Constitutional: This is a well developed, well nourished patient who is awake, alert, kb and in no acute distress. Head/Face: Normocephalic, atraumatic. ENT: Moist Mucous membranes Cardiovascular: Regular rate and rhythm with a normal S1 and S2. No gallops, murmurs, or rubs. No pulse deficits. Respiratory: Respirations even and unlabored. No increased work of breathing. Talking in full sentences Skin: Warm, dry with normal turgor. Normal color. MS/ Extremity: Pulses equal, no cyanosis. Neurovascular intact. Full, normal range of motion. Neuro: Awake and alert, GCS 15, oriented to person, place, time, and situation. Moves all extremities. Normal gait. 09:43 Abdomen/GI: Inspection: abdomen appears normal, Bowel sounds: normal, Palpation: soft, in all quadrants, mild abdominal tenderness, in all quadrants. 09:54 Abdomen/GI: Rectal exam: hemorrhoid(s), external, with pain, without bleeding, without kb inflammation, without thrombosis. Vital Signs: 09:18 BP 167 / 111; Pulse 138; Resp 20; Temp 98; Pulse Ox 98% on R/A; Weight 72.57 kg; os 09:57 BP 128 / 74; Pulse 85; Resp 17; Pulse Ox 99% on R/A; os MDM: 09:03 Patient medically screened. kb 09:44 Data reviewed: vital signs, nurses notes. kb 09:50 ED course: Pt had a CT scan on 12/17/22 for similar complaint. Pt reports the pain she kb is having is exactly the same as pain she has had in the past and prefers not to have a CT if possible. Pt is afebrile and nontoxic in appearance. . 10:11 Differential diagnosis: non-specific abd pain, chronic abd pain, colitis, ulcerative kb colitis, crohns. Test considered but Not performed: CT: CT scan considered, but elected not to have that done using shared decision making. Counseling: I had a detailed discussion with the patient and/or guardian regarding: the historical points, exam findings, and any diagnostic results supporting the discharge/admit diagnosis, lab results, the need for outpatient follow up, a supply specialist, to return to the emergency department if symptoms worsen or persist or if there are any questions or concerns that arise at home. 01/19 09:13 Order name: CBC with Diff; Complete Time: 09:51 kb 01/19 09:13 Order name: CMP; Complete Time: 09:54 kb 01/19 09:13 Order name: Lipase; Complete Time: 09:54 kb 01/19 09:13 Order name: Test, Urine; Complete Time: 09:54 kb 01/19 09:13 Order name: Urinalysis w/ reflexes; Complete Time: 09:40 kb 01/19 09:13 Order name: IV Saline Lock; Complete Time: 09:31 kb 01/19 09:13 Order name: Labs collected and sent; Complete Time: 09:31 kb 01/19 09:56 Order name: Vital Signs; Complete Time: 09:58 kb Administered Medications: 09:43 Drug: NS 0.9% IV 1000 ml Route: IV; Rate: 1 bolus; Site: right antecubital; os 10:31 Follow up: Response: No adverse reaction os 09:43 Drug: Famotidine IVP 20 mg Route: IVP; Site: right antecubital; os 10:31 Follow up: Response: No adverse reaction os 09:43 Drug: Ondansetron IVP 4 mg Route: IVP; Site: right antecubital; os 10:31 Follow up: Response: No adverse reaction os 09:44 Drug: TORadol - Ketorolac IVP 15 mg Route: IVP; Site: right antecubital; os 10:31 Follow up: Response: No adverse reaction os 09:54 Drug: Decadron - Dexamethasone IVP 10 mg Route: IVP; Site: right antecubital; os 10:31 Follow up: Response: No adverse reaction os Disposition: 10:37 Co-signature as Attending Physician, Dev Montoya MD I reviewed the patient's care rt provided by the Advanced Practice Provider and agree with the diagnosis and treatment plan. Disposition Summary: 01/19/23 10:12 Discharge Ordered Location: Home kb Condition: Stable kb Diagnosis - Abdominal pain, Generalized kb Followup: kb - With: Emergency Department - When: As needed - Reason: Worsening of condition Followup: kb - With: Private Physician - When: 2 - 3 days - Reason: Recheck today's complaints, Continuance of care, Re-evaluation by your physician Discharge Instructions: - Discharge Summary Sheet kb - Abdominal Pain, Adult, Coly-rh-Hfcu kb Forms: - Medication Reconciliation Form kb - Thank You Letter kb - Antibiotic Education kb - Prescription Opioid Use kb - [email or web address].htm kb Prescriptions: - ondansetron 4 mg Oral Tablet,disintegrating - take 1 tablet by ORAL route every 6 hours As needed; 12 tablet; Refills: 0, kb Product Selection Permitted - Prednisone 20 mg Oral Tablet - take 1 tablet by ORAL route once daily for 5 days; 5 tablet; Refills: 0, kb Product Selection Permitted - dicyclomine 20 mg Oral Tablet - take 1 tablet by ORAL route 4 times per day As needed; 20 tablet; Refills: 0, kb Product Selection Permitted Signatures: Dispatcher [employer] Marlen Joshua, ARTURO-C MACHINE SET UP OPERATOR [employer]APER [employer]-Dev Padilla MD MD rt Anna Tan, RN RN os
--- NOTE | 2023-01-19 10:13 | ER ---
Nurse's Notes [facility] Name: Mellisa Cordero Age: 27 yrs Sex: Female : 1995 Arrival Date: 01/19/2023 Time: 09:01 Bed 20 Private MD: Diagnosis: Abdominal pain, Generalized Presentation: 01/19 09:18 Chief complaint: Patient states: abdominal pain from a IBS flare up for the past 3 ays. os Coronavirus screen: Client denies travel out of the [place] in the last 14 days. At this time, the client does not indicate any symptoms associated with coronavirus-19. Ebola Screen: Patient negative for fever greater than or equal to 101.5 degrees Fahrenheit, and additional compatible Ebola Virus Disease symptoms. Initial Sepsis Screen: Does the patient meet any 2 criteria? No. Patient's initial sepsis screen is negative. Does the patient have a suspected source of infection? No. Patient's initial sepsis screen is negative. Risk Assessment: Do you want to hurt yourself or someone else? Patient reports no desire to harm self or others. Onset of symptoms was January 16, 2023. 09:18 Method Of Arrival: Ambulatory os 09:18 Acuity: BRITTNI 3 os Triage Assessment: 09:23 General: Appears in no apparent distress. Behavior is cooperative, appropriate for age, os anxious. Pain: Complains of pain in abdomen Pain does not radiate. Pain at worst was 9 out of 10 on a pain scale. Quality of pain is described as aching, crampy, Pain began 2-3 days ago. Is continuous. Neuro: No deficits noted. Cardiovascular: No deficits noted. Cardiovascular: Rhythm is sinus tachycardia. Respiratory: No deficits noted. GI: Reports upper abdominal pain. Historical: - Allergies: 09:21 No Known Allergies; os - PMHx: 09:22 Irritable bowel syndrome; os - Immunization history:: Adult Immunizations up to date. - Social history:: Smoking status: Patient reports the use of cigarette tobacco products, smokes one pack cigarettes per day. Vital Signs: 09:18 BP 167 / 111; Pulse 138; Resp 20; Temp 98; Pulse Ox 98% on R/A; Weight 72.57 kg; os 09:57 BP 128 / 74; Pulse 85; Resp 17; Pulse Ox 99% on R/A; os ED Course: 09:02 Patient arrived in ED. im 09:03 Marlen Bradley FNP-C [facility]. kb 09:03 Dev Montoya MD is Attending Physician. kb 09:04 Anna Tan, RN is Primary Nurse. os 09:20 Triage completed. os 09:30 Inserted saline lock: 20 gauge in right antecubital area, using aseptic technique. rs5 Blood collected. 09:31 CBC with Diff Sent. rs5 09:31 CMP Sent. rs5 09:31 Lipase Sent. rs5 09:31 Test, Urine Sent. rs5 09:31 Urinalysis w/ reflexes Sent. rs5 09:44 CBC with Diff Sent. os 09:44 CMP Sent. os 09:44 Lipase Sent. os 09:44 Test, Urine Sent. os Administered Medications: 09:43 Drug: NS 0.9% IV 1000 ml Route: IV; Rate: 1 bolus; Site: right antecubital; os 10:31 Follow up: Response: No adverse reaction os 09:43 Drug: Famotidine IVP 20 mg Route: IVP; Site: right antecubital; os 10:31 Follow up: Response: No adverse reaction os 09:43 Drug: Ondansetron IVP 4 mg Route: IVP; Site: right antecubital; os 10:31 Follow up: Response: No adverse reaction os 09:44 Drug: TORadol - Ketorolac IVP 15 mg Route: IVP; Site: right antecubital; os 10:31 Follow up: Response: No adverse reaction os 09:54 Drug: Decadron - Dexamethasone IVP 10 mg Route: IVP; Site: right antecubital; os 10:31 Follow up: Response: No adverse reaction os Outcome: 10:12 Discharge ordered by . kb 10:32 Patient left the ED. os Signatures: Marlen Bradley FNP-C FNP-Neno Stevens rs5 Anna Tan, GENI RN os Karrie Aly im
[2023-01-19 11:03] VITALS: TEMP 98
[2023-01-19 11:05] VITALS: BP 128/74; O2SAT 99
== END 2023-01-19 10:32 | disposition home or self-care (01) ==
LOC: ER 09:01
DX: R10.84 Generalized abdominal pain (principal); F17.210 Nicotine dependence, cigarettes, uncomplicated
CPT/HCPCS: 85025; 36415; 81025; 81003; 83690; 80053; 96375; 96374; 99284; J1100; J2405; J7030

== ENCOUNTER 2023-02-24 13:55 | Emergency (ER) | payer OTHER ==
--- OUTSIDE RECORDS SUMMARY | 2023-02-24 14:04 | XMS REPORT | Continuity of Care Document ---
:1995 Author Organization [facility] t Address [address] [place] [address] Care Team Providers Name Role Phone Pcp, Patient Does Not Have A Primary Care Physician [phone] MAXIMINO ROSARIO Attending Clinician Unavailable Kristopher Venegas MD Attending Clinician Unavailable KURTIS PATEL Attending Clinician Unavailable Kurtis Valevrde Attending Clinician Unknown, Attending Attending Clinician Unavailable Doctor Unassigned, [place] Attending Clinician Unavailable ARRON CHILD Attending Clinician Unavailable Arron Child MD Attending Clinician Maximino Rosario MD Attending Clinician Unavailable Moisés Heart RN Attending Clinician Unavailable Jun Romero Attending Clinician [phone] JUN SALCEDO Attending Clinician Unavailable Josue [...] Unavailable RADHIKA BOLANOS Attending Clinician Unavailable Cici VENDING MECHANICRadhika Attending Clinician ARCELIA BRANDON Attending Clinician Unavailable [...] Attending Clinician RYAN LOPEZ Attending Clinician Unavailable Ryan Gonzalez Attending Clinician GI CERVANTES Attending Clinician Unavailable Katie Cox RN Attending Clinician Unavailable 1, [facility] Attending Clinician Unavailable Tatyana Rodriguez MD Attending Clinician TATYANA RODRIGUEZ Attending Clinician Unavailable BRANDON PERAZA Attending Clinician Unavailable Andreina, [facility] Attending Clinician Unavailable [facility] Attending Clinician Unavailable Jazzy Antonio MD Attending Clinician BOUCHRA PASTRANA Attending Clinician Unavailable CLAUDIO GAN Attending Clinician Unavailable Sai Morris Attending Clinician Unavailable UNKNOWN, ATTENDING Attending Clinician Unavailable Bradly JACOME Nidia Attending Clinician Denys LIU Bella L Attending Clinician V[facility] Attending Clinician Unavailable MAXIMINO ROSARIO Admitting Clinician Unavailable Maximino Rosario MD Admitting Clinician STONEY PALMA Admitting Clinician Unavailable JOSE ARIZMENDI Admitting Clinician Unavailable Jose Arizmendi MD Admitting Clinician Physician, No Primary or Family Admitting Clinician Unavaila ble Payers Payer Name Policy Type Policy Number Effective Date Expiration Date Sue HAYWOOD [id number] 2018 HEALTH 00:00:00 Problems Condition Condition Condition Status Onset Resolution Last Treating Co mments Source Name Details Category Date Date Treatment Clinician Date Relies on Relies on Disease Active Uni vers partner partner 03-28 [place] contracept contracept Br anch ion ion Diarrhea, Diarrhea, Disease Active Overview: Univers unspecifie unspecifie 08 Formattin ity of d type d type 00:00: g of this [place] 00 note Medical might be Branch different from the original. Added automatic ally from request for surgery [id number] Abdominal Abdominal Disease Active Overview: Univers pain, pain, 12-25 Formattin ity of generalize generalize 00:00: g of this [place] d d 00 note Medical might be Branch different from the original. Added automatic ally from request for surgery [id number] Single Single Disease Active 2020-07 Univers liveborn liveborn 08-17 ity of 00:00: [place] 00 Medical Branch Disease Active 2020-07 Univers (spontaneo (spontaneo 08-17 [place] vaginal [place] delivery[place] 00 [facility] Branch Anemia of Anemia of Disease Active 2020-07 Uni vers mother in mother in 1-15 [place] , , [place] antepartum antepartum 00 Me dical Branch Elevated Elevated Disease Active 2020-07 Unive rs BP without BP without 1-12 it y of diagnosis diagnosis 00:00: Karma rodrigues of of Medical hypertensi hypertensi Br anch on on Tobacco Tobacco Disease Active Overview: Univ ers abuse abuse 4-05 Formattin ity of 00:00: g of this [place] note Medical might be Branch different from the original. Cessation at 12 weeks Screening Screening Disease Active Uni vers examinatio examinatio 3-12 it y of n for STD n for STD [place] ([place]ually (sexually 00 [facility] transmitte transmitte Br anch d disease) d disease) Anal Anal Disease Active Overview: Univer s fissure fissure 03-22 Formattin ity o f 00:00: g of this [place] note Medical might be Branch different from the original. Added automatic ally from request for surgery [id number] Family Family Disease Active Overview: Univer s history of history of 9 Formattin ity of colon colon 00:00: g of this [place] cancer cancer 00 note Medical might be Branch different from the original. Added automatic ally from request for surgery [id number] 39 weeks 39 weeks Disease Active Unive rs gestation gestation 6-03 ity of of of 00:00: [place] 00 [facility] Branch Overweight Overweight Disease Active U nivers (BMI (BMI 5-30 ity of 25.0-29.9) 25.0-29.9) [place] Obesity Obesity Disease Active Univers (BMI (BMI 5-22 ity of 30-39.9) 30-39.9) 00:00: [place] Medical Branch Multiparit Multiparit Disease Active U nivers y y 3-12 ity of 00:00: Medical Branch History of History of Disease Active 2017-07 U nivers headache headache 2-03 ity of 00:00: [place] Medical Branch Supervisio Supervisio Disease Active 2017-07 Overview : Univers n of high n of high 0-08 Formattin i ty of risk risk 00:00: g of this [place] , , 00 note Me dical antepartum antepartum might be Branch different from the original. 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) 00 Medica l infection infection Bran ch History of History of Disease Active U nivers depression depression 5-09 it y of 00:00: [place] 00 Medical [place] Well woman Well woman Disease Active 2015-07 U nivers exam exam 0-03 ity of 00:00: [place] 00 Medical Branch Bipolar I Bipolar I Disease Active Uni vers disorder, disorder, 1-10 ity of most most 00:00: [place] recent recent 00 Medical episode episode Branch (or (or current) current) manic manic Allergies, Adverse Reactions, Alerts Allergy Allergy Status Severity Reaction(s) Onset Inactive Treating Comm ents Source Name Type Date Date Clinician Hydrocod Propensi Active Nausea Univer s one ty to and/or 11-23 ity of adverse Vomiting 00:00: [place] reaction 00 Medical s Branch HYDROCOD DRUG Active N/V Univers ONE INGREDI 5-07 ity of 00:00: [place] [id number] Medical Branch No Known DA Active U [facility] Allergie 9-23 Clear s 00:00: [address] Social History Social Habit Start Date Stop Date Quantity Comments Source History of Cigarette Smoker Universi ty of tobacco use [place] [facility] History [facility] University o f Alcohol Frequency [facility] edical Branch History [facility] University o f Alcohol Std [place] Medical Drinks Branch History [facility] o f Alcohol Binge [place] Medic al Branch Exposure to 2022-06-09 2022-06-19 Not sure University of SARS-CoV-2 00:00:00 16:00:00 [facility] (event) Branch Alcohol intake 2022-06-19 2022-06-19 0 /d University of 00:00:00 00:00:00 [facility] Tobacco use and 2021-10-03 2021-10-03 Smokeless tobacco Un iversity of exposure 00:00:00 00:00:[address] [facility] Alcohol Comment 2018-04-26 2018-04-26 Dc'd 07/27/2014/ Tess rsity of 00:00:00 00:00:00 last drank [facility] 04/20/2018 x 2 Branch drinks a day Sex Ass[birth year] At [birth year] Universit y of 00:00:00 00:00:00 [facility] Smoking Status Start Date Stop Date Source Ex-smoker 2021-10-03 00:00:00 2021-10-03 00:00:00 [facility] Medications Ordered Filled Start Stop Current Ordering Indication Dosage Frequency Signature Comments Components Source Medication Medication Date Date Medication? Clinician (SIG) Name Name Vida 2022- No [id number] 500mg Take 1 Univers r 500 mg 4-30 05-06 tablet by ity o f tablet 00:00: 04:59 mouth in [place] 00 :00 the Medical morning Branch and 1 tablet in the evening. Do all this for 5 days. valACYclovi 2022- No [id number] 500mg Take 1 Univers r 500 mg 4-30 05-06 tablet by ity o f tablet 00:00: 04:59 mouth in [place] 00 :00 the Medical morning Branch and [...] mouth. ity of (TRAMADOL 16:13: [place] ORAL) [facility] ciprofloxac 2021-07 Yes 500mg Take 500 U nivers in HCl 2-01 mg by ity of (CIPRO) 500 16:13: mouth [place] mg tablet 23 every 12 Medica l (twelve) Branch hours. tramadol 2021-07 Yes 50mg Take 50 mg Uni vers HCl 2-01 by mouth. ity of (TRAMADOL 16:13: [place] ORAL) [facility] Branch ciprofloxac 2021-07 Yes 500mg Take 500 U nivers in HCl 2-01 mg by ity of (CIPRO) 500 16:13: mouth [place] mg tablet 23 every 12 Medica l (twelve) Branch hours. tramadol 2021-07 Yes 50mg Take 50 mg Uni vers HCl 2-01 by mouth. ity of (TRAMADOL 16:13: [place] ORAL) 23 Medical Branch ciprofloxac 2021-07 Yes 500mg Take 500 U nivers in HCl 2-01 mg by ity of (CIPRO) 500 16:13: mouth [place] mg tablet 23 every 12 Medica l (twelve) Branch hours. tramadol 2021-07 Yes 50mg Take 50 mg Uni vers HCl 2-01 by mouth. ity of (TRAMADOL 16:13: [place] ORAL) Medical [place] ciprofloxac 2021-07 Yes 500mg Take 500 U nivers in HCl 2-01 mg by ity of (CIPRO) 500 16:13: mouth [place] mg tablet 23 every 12 Medica l (twelve) Branch hours. tramadol 2021-07 Yes 50mg Take 50 mg Uni vers HCl 2-01 by mouth. ity of (TRAMADOL 16:13: [place] ORAL) [facility] ciprofloxac 2021-07 Yes 500mg Take 500 U [...] mouth. ity of (TRAMADOL 16:13: [place] ORAL) [facility] ciprofloxac 2021-07 Yes 500mg Take 500 U nivers in HCl 2-01 mg by ity of (CIPRO) 500 16:13: mouth [place] mg tablet 23 every 12 Medica l (twelve) Branch hours. tramadol 2021-07 Yes 50mg Take 50 mg Uni vers HCl 2-01 by mouth. ity of (TRAMADOL 16:13: [place] ORAL) 23 Medical Branch ciprofloxac 2021-07 Yes 500mg Take 500 U nivers in HCl 2-01 mg by ity of (CIPRO) 500 16:13: mouth [place] mg tablet 23 every 12 Medica l (twelve) Branch hours. tramadol 2021-07 Yes 50mg Take 50 mg Uni vers HCl 2-01 by mouth. ity of (TRAMADOL 16:13: [place] ORAL) 23 Medical Branch dicyclomine 2021-07 Yes [id number] 10mg Take 1 Univers 10 mg 2-01 capsule by ity of capsule 00:00: mouth [place] 00 every 6 Medical (six) Branch hours as needed for Abdominal pain. dicyclomine 2021-07 Yes [id number] 10mg Take 1 Univers 10 mg 2-01 capsule by ity of capsule 00:00: mouth [place] 00 every 6 Medical (six) Branch hours as needed for Abdominal pain. dicyclomine 2021-07 Yes [id number] 10mg Take 1 Univers 10 mg 2-01 capsule by ity of capsule 00:00: mouth [place] 00 every 6 Medical (six) Branch hours as needed for Abdominal pain. dicyclomine 2021-07 Yes [id number] 10mg Take 1 Univers 10 mg 2-01 capsule by ity of capsule 00:00: mouth [place] 00 every 6 Medical (six) Branch hours as needed for Abdominal pain. dicyclomine 2021-07 Yes [id number] 10mg Take 1 Univers 10 mg 2-01 capsule by ity of capsule 00:00: mouth [place] 00 every 6 Medical (six) Branch hours as needed for Abdominal pain. dicyclomine 2021-07 Yes [id number] 10mg Take 1 Univers 10 mg 2-01 capsule by ity of capsule 00:00: mouth [place] 00 every 6 Medical (six) Branch hours as needed for Abdominal pain. dicyclomine 2021-07 Yes [id number] 10mg Take 1 Univers 10 mg 2-01 capsule by ity of capsule 00:00: mouth [place] 00 every 6 Medical (six) Branch hours as needed for Abdominal pain. dicyclomine 2021-07 Yes [id number] 10mg Take 1 Univers 10 mg 2-01 capsule by ity of capsule 00:00: mouth [place] 00 every 6 Medical (six) Branch hours as needed for Abdominal pain. dicyclomine 2021- Yes [id number] 10mg Take 1 Univers 10 mg 2-01 capsule by ity of capsule 00:00: mouth [place] 00 every 6 Medical (six) Branch hours as needed for Abdominal pain. dicyclomine 2021-1 Yes [id number] 10mg Take 1 Univers 10 mg 2-01 capsule by ity of capsule 00:00: mouth [place] 00 every 6 Medical (six) Branch hours as needed for Abdominal pain. metroNIDAZO 2021-0 Yes [id number] 500mg Take 1 Univers LE 500 mg 9-30 tablet by ity o f tablet 00:00: mouth in [place] 00 the Medical morning Branch and 1 tablet in the evening. metroNIDAZO 2021-0 Yes [id number] 500mg Take 1 Univers LE 500 mg 9-30 tablet by ity o f tablet 00:00: mouth in [place] 00 the Medical morning Branch and 1 tablet in the evening. metroNIDAZO 2021-0 Yes [id number] 500mg Take 1 Univers LE 500 mg 9-30 tablet by ity o f tablet 00:00: mouth in [place] 00 the Medical morning Branch and 1 tablet in the evening. metroNIDAZO 2021-0 Yes [id number] 500mg Take 1 Univers LE 500 mg 9-30 tablet by ity o f tablet 00:00: mouth in [place] 00 the Medical morning Branch and 1 tablet in the evening. metroNIDAZO 2021-0 Yes [id number] 500mg Take 1 Univers LE 500 mg 9-30 tablet by ity o f tablet 00:00: mouth in [place] 00 the Medical morning Branch and 1 tablet in the evening. metroNIDAZO 2021-0 Yes [id number] 500mg Take 1 Univers LE 500 mg 9-30 tablet by ity o f tablet 00:00: mouth in [place] 00 the Medical morning Branch and 1 tablet in the evening. metroNIDAZO 2-0 Yes [id number] 500mg Take 1 Univers LE 500 mg 9-30 tablet by ity o f tablet 00:00: mouth in [place] 00 the Medical morning Branch and 1 tablet in the evening. metroNIDAZO 2021-0 Yes [id number] 500mg Take 1 Univers LE 500 mg 9-30 tablet by ity o f tablet 00:00: mouth in [place] 00 the Medical morning Branch and 1 tablet in the evening. metroNIDAZO 2-0 Yes [id number] 500mg Take 1 Univers LE 500 mg 9-30 tablet by ity o f tablet 00:00: mouth in [place] 00 the Medical morning Branch and 1 tablet in the evening. metroNIDAZO 2-0 Yes [id number] 500mg Take 1 Univers LE 500 mg 9-30 tablet by ity o f tablet 00:00: mouth in [place] 00 the Medical morning Branch and 1 tablet in the evening. metroNIDAZO 2-0 Yes [id number] 500mg Take 1 Univers LE 500 mg 9-30 tablet by ity o f tablet 00:00: mouth in [place] 00 the Medical morning Branch and 1 tablet in the evening. metroNIDAZO 2-0 Yes [id number] 500mg Take 1 Univers LE 500 mg 9-30 tablet by ity o f tablet 00:00: mouth in [place] 00 the Medical morning Branch and 1 tablet in the evening. metroNIDAZO 2021-0 Yes [id number] 500mg Take 1 Univers LE 500 mg 9-30 tablet by ity o f tablet 00:00: mouth in [place] 00 the Medical morning Branch and 1 tablet in the evening. metroNIDAZO 2021-0 Yes [id number] 500mg Take 1 Univers LE 500 mg 9-30 tablet by ity o f tablet 00:00: mouth in [place] 00 the Medical morning Branch and 1 tablet in the evening. metroNIDAZO 2-0 Yes [id number] 500mg Take 1 Univers LE 500 mg 9-30 tablet by ity o f tablet 00:00: mouth in [place] 00 the Medical morning Branch and 1 tablet in the evening. metroNIDAZO 2-0 Yes [id number] 500mg Take 1 Univers LE 500 mg 9-30 tablet by ity o f tablet 00:00: mouth in [place] 00 the Medical morning Branch and 1 tablet in the evening. metroNIDAZO 2-0 Yes [id number] 500mg Take 1 Univers LE 500 mg 9-12 tablet by ity o f tablet 00:00: mouth in [place] 00 the Medical morning Branch and 1 tablet in the evening. metroNIDAZO 2-0 Yes [id number] 500mg Take 1 Univers LE 500 mg 9-12 tablet by ity o f tablet 00:00: mouth in [place] 00 the Medical morning Branch and 1 tablet in the evening. metroNIDAZO 2-0 Yes [id number] 500mg Take 1 Univers LE 500 mg 9-12 tablet by ity o f tablet 00:00: mouth in [place] 00 the Medical morning Branch and 1 tablet in the evening. metroNIDAZO 2-0 Yes [id number] 500mg Take 1 Univers LE 500 mg 9-12 tablet by ity o f tablet 00:00: mouth in [place] 00 the Medical morning Branch and 1 tablet in the evening. metroNIDAZO 2021-0 Yes [id number] 500mg Take 1 Univers LE 500 mg 9-12 tablet by ity o f tablet 00:00: mouth in [place] 00 the Medical morning Branch and 1 tablet in the evening. metroNIDAZO 2-0 Yes [id number] 500mg Take 1 Univers LE 500 mg 9-12 tablet by ity o f tablet 00:00: mouth in [place] 00 the Medical morning Branch and 1 tablet in the evening. metroNIDAZO 2021-0 Yes [id number] 500mg Take 1 Univers LE 500 mg 9-12 tablet by ity o f tablet 00:00: mouth in [place] 00 the Medical morning Branch and 1 tablet in the evening. metroNIDAZO 2021-0 Yes [id number] 500mg Take 1 Univers LE 500 mg 9-12 tablet by ity o f tablet 00:00: mouth in [place] 00 the Medical morning Branch and 1 tablet in the evening. metroNIDAZO 2021-0 Yes [id number] 500mg Take 1 Univers LE 500 mg 9-12 tablet by ity o f tablet 00:00: mouth in [place] 00 the Medical morning Branch and 1 tablet in the evening. metroNIDAZO 2021-0 Yes [id number] 500mg Take 1 Univers LE 500 mg 9-12 tablet by ity o f tablet 00:00: mouth in [place] 00 the Medical morning Branch and 1 tablet in the evening. metroNIDAZO 2-0 Yes [id number] 500mg Take 1 Univers LE 500 mg 9-12 tablet by ity o f tablet 00:00: mouth in [place] 00 the Medical morning Branch and 1 tablet in the evening. metroNIDAZO 2-0 Yes [id number] 500mg Take 1 Univers LE 500 mg 9-12 tablet by ity o f tablet 00:00: mouth in [place] 00 the Medical morning Branch and 1 tablet in the evening. metroNIDAZO 2-0 Yes [id number] 500mg Take 1 Univers LE 500 mg 9-12 tablet by ity o f tablet 00:00: mouth in [place] 00 the Medical morning Branch and 1 tablet in the evening. metroNIDAZO 2022-0 Yes [id number] 500mg Take 1 Univers LE 500 mg 9-12 tablet by ity o f tablet 00:00: mouth in [place] 00 the Medical morning Branch and 1 tablet in the evening. metroNIDAZO 2022-0 Yes [id number] 500mg Take 1 Univers LE 500 mg 9-12 tablet by ity o f tablet 00:00: mouth in [place] 00 the Medical morning Branch and 1 tablet in the evening. metroNIDAZO 2022-0 Yes [id number] 500mg Take 1 Univers LE 500 mg 9-12 tablet by ity o f tablet 00:00: mouth in [place] 00 the Medical morning Branch and 1 tablet in the evening. metroNIDAZO 2022-0 Yes [id number] 500mg Take 1 Univers LE 500 mg 9-12 tablet by ity o f tablet 00:00: mouth in [place] 00 the Medical morning Branch and 1 tablet in the evening. metroNIDAZO 2-0 Yes [id number] 500mg Take 1 Univers LE 500 mg 9-12 tablet by ity o f tablet 00:00: mouth in [place] 00 the Medical morning Branch and 1 tablet in the evening. metroNIDAZO 2-0 Yes [id number] 500mg Take 1 Univers LE 500 mg 9-12 tablet by ity o f tablet 00:00: mouth in [place] 00 the Medical morning Branch and 1 tablet in the evening. cyclobenzap 2022-0 Yes [id number] 10mg Take 1 Univers rine 10 mg 8-14 tablet by ity of tablet 00:00: mouth 3 [place] 00 (three) Medical times Branch daily as needed for Muscle Spasms. cyclobenzap 2022-0 Yes [id number] 10mg Take 1 Univers rine 10 mg 8-14 tablet by ity of tablet 00:00: mouth 3 [place] 00 (three) Medical times Branch daily as needed for Muscle Spasms. cyclobenzap 2022-0 Yes [id number] 10mg Take 1 Univers rine 10 mg 8-14 tablet by ity of tablet 00:00: mouth 3 [place] 00 (three) Medical times Branch daily as needed for Muscle Spasms. cyclobenzap 2022-0 Yes [id number] 10mg Take 1 Univers rine 10 mg 8-14 tablet by ity of tablet 00:00: mouth 3 (three) Medical times Branch daily as needed for Muscle Spasms. cyclobenzap 2021-0 Yes [id number] 10mg Take 1 Univers rine 10 mg 8-14 tablet by ity of tablet 00:00: mouth 3 (three) Medical times Branch daily as needed for Muscle Spasms. cyclobenzap 2021-0 Yes [id number] 10mg Take 1 Univers rine 10 mg 8-14 tablet by ity of tablet 00:00: mouth (three) Medical times Branch daily as needed for Muscle Spasms. cyclobenzap 2021-0 Yes [id number] 10mg Take 1 Univers rine 10 mg 8-14 tablet by ity of tablet 00:00: mouth (three) Medical times Branch daily as needed for Muscle Spasms. cyclobenzap 2021-0 Yes [id number] 10mg Take 1 Univers rine 10 mg 8-14 tablet by ity of tablet 00:00: mouth (three) Medical times Branch daily as needed for Muscle Spasms. cyclobenzap 2021-0 Yes [id number] 10mg Take 1 Univers rine 10 mg 8-14 tablet by ity of tablet 00:00: mouth (three) Medical times Branch daily as needed for Muscle Spasms. cyclobenzap 2021-0 Yes [id number] 10mg Take 1 Univers rine 10 mg 8-14 tablet by ity of tablet 00:00: mouth (three) Medical times Branch daily as needed for Muscle Spasms. cyclobenzap 2-0 Yes [id number] 10mg Take 1 Univers rine 10 mg 8-14 tablet by ity of tablet 00:00: mouth (three) Medical times Branch daily as needed for Muscle Spasms. cyclobenzap 2022-0 Yes [id number] 10mg Take 1 Univers rine 10 mg 8-14 tablet by ity of tablet 00:00: mouth 3 (three) Medical times Branch daily as needed for Muscle Spasms. cyclobenzap 2022-0 Yes [id number] 10mg Take 1 Univers rine 10 mg 8-14 tablet by ity of tablet 00:00: mouth 3 [place] 00 (three) Medical times Branch daily as needed for Muscle Spasms. cyclobenzap 2-0 Yes [id number] 10mg Take 1 Univers rine 10 mg 8-14 tablet by ity of tablet 00:00: mouth 3 00 (three) Medical times Branch daily as needed for Muscle Spasms. cyclobenzap 2-0 Yes [id number] 10mg Take 1 Univers rine 10 mg 8-14 tablet by ity of tablet 00:00: mouth 3 (three) Medical times Branch daily as needed for Muscle Spasms. cyclobenzap 2021-0 Yes [id number] 10mg Take 1 Univers rine 10 mg 8-14 tablet by ity of tablet 00:00: mouth 3 (three) Medical times Branch daily as needed for Muscle Spasms. cyclobenzap 2-0 Yes [id number] 10mg Take 1 Univers rine 10 mg 8-14 tablet by ity of tablet 00:00: mouth 3 (three) Medical times Branch daily as needed for Muscle Spasms. cyclobenzap 2021-0 Yes [id number] 10mg Take 1 Univers rine 10 mg 8-14 tablet by ity of tablet 00:00: mouth 3 (three) Medical times Branch daily as needed for Muscle Spasms. cyclobenzap 2-0 Yes [id number] 10mg Take 1 Univers rine 10 mg 8-14 tablet by ity of tablet 00:00: mouth 3 00 (three) Medical times Branch daily as needed for Muscle Spasms. Immunizations Ordered Immunization Filled Immunization Date Status Commen ts Source Name Name [facility] 2021-03-29 Completed University of 00:00: [facility] TD 2021-03-29 Completed University of 00[facility]00: [facility] TDAP 2021-03-29 Completed University of 00:00: [facility] TDAP 2021-03-29 Completed University of 00:00: [facility] TDAP 2021-03-29 Completed University of 00:00: [facility] TDAP 2021-03-29 Completed University of 00:00: [facility] TDAP 2021-03-29 Completed University of 00:00:00 [facility] TDAP 2021-03-29 [facility] 00:[facility] [place] [facility] TDAP 2021-03-29 Completed University of 00:00:00 [place] [facility] TDAP 2021-03-29 Completed University of 00:00:00 [place] [facility] TDAP 2021-03-29 Completed University of 00:00:00 [place] [facility] TDAP 2021-03-29 Completed University of 00:00:00 [place] [facility] TDAP 2021-03-29 Completed University of 00:00:00 [place] [facility] TDAP 2021-03-29 Completed University of 00:00:00 [place] [facility] TDAP 2021-03-29 Completed University of 00:00:00 [place] [facility] TDAP 2021-03-29 Completed University of 00:00:00 [place] [facility] TDAP 2021-03-29 Completed University of 00:00:00 [place] [facility] TDAP 2021-03-29 Completed University of 00:00:00 [facility] Branch TDAP 2018-10-15 Completed University of 00:00:00 [facility] Branch TDAP 2018-10-15 Completed University of 00:00:00 [place] [facility] TDAP 2018-10-15 Completed University of 00:00:00 [place] [facility] TDAP 2018-10-15 Completed University of 00:00:00 [place] [facility] TDAP 2018-10-15 Completed University of 00:00:00 [place] [facility] TDAP 2018-10-15 Completed University of 00:00:00 [facility] Branch TDAP 2018-10-15 Completed University of 00:00:00 [place] [facility] TDAP 2018-10-15 Completed University of 00:00:00 [place] [facility] TDAP 2018-10-15 Completed University of 00:00:00 [place] [facility] TDAP 2018-10-15 Completed University of 00:00:00 [place] [facility] TDAP 2018-10-15 Completed University of 00:00:00 [place] [facility] TDAP 2018-10-15 Completed University of 00:00:00 [place] [facility] TDAP 2018-10-15 Completed University of 00:00:00 [facility] TDAP 2018-10-15 Completed [facility] 00:00:00 [facility] TDAP 2018-10-15 Completed [facility] 00:00:00 [facility] TDAP 2018-10-15 Completed [facility] 00:00:00 [facility] TDAP 2018-10-15 Completed [facility] 00:00:00 [facility] TDAP 2018-10-15 Completed [facility] 00:00:00 [facility] TDAP 2018-10-15 Completed [facility] 00:00:00 [facility] PPD (TB) 2012-08-23 Completed [facility] 00:00:00 [facility] PPD (TB) 2012-08-23 Completed [facility] 00:00:00 [facility] PPD (TB) 2012-08-23 Completed [facility] 00:00:00 [facility] PPD (TB) 2012-08-23 Completed [facility] 00:00:00 [facility] PPD (TB) 2012-08-23 Completed [facility] 00:00:00 [facility] PPD (TB) 2012-08-23 Completed [facility] 00:00:00 [facility] PPD (TB) 2012-08-23 Completed [facility] 00:00:00 [facility] PPD (TB) 2012-08-23 Completed [facility] 00:00:00 [facility] PPD (TB) 2012-08-23 Completed [facility] 00:00:00 [facility] PPD (TB) 2012-08-23 Completed [facility] 00:00:00 [facility] PPD (TB) 2012-08-23 Completed [facility] 00:00:00 [facility] PPD (TB) 2012-08-23 Completed [facility] 00:00:00 [facility] PPD (TB) 2012-08-23 Completed [facility] 00:00:00 [facility] PPD (TB) 2012-08-23 Completed [facility] 00:00:00 [facility] PPD (TB) 2012-08-23 Completed [facility] 00:00:00 [facility] PPD (TB) 2012-08-23 Completed [facility] 00:00:00 [facility] PPD (TB) 2012-08-23 Completed [facility] 00:00:00 [facility] PPD (TB) 2012-08-23 Completed [facility] 00:00:00 [facility] PPD (TB) 2012-08-23 Completed [facility] 00:00:00 [facility] HPV Unspecified 2011-07-03 Completed [facility] 00:[facility]:00 [facility] Meningococcal 2011-07-03 Completed [facility] Polysaccharide 00:00:00 [facility] radha (groups A, C, Y and Branc h W-135) conjugate vaccine (MCV4P) TDAP 2011-07-03 Completed [facility] 00:00:00 [facility] Varicella 2011-07-03 Completed [facility] (varivax)(chicken 00:00:00 [facility] HPV Unspecified 2011-07-03 Completed [facility] 00:00:00 [facility] Meningococcal 2011-07-03 Completed [facility] Polysaccharide 00:00:00 [facility] (groups A, C, Y and Branc h W-135) conjugate vaccine (MCV4P) TDAP 2011-07-03 Completed [facility] 00:00:00 [facility] Varicella 2011-07-03 Completed [facility] (varivax)(chicken 00:00:00 [facility] HPV Unspecified 2011-07-03 Completed [facility] 00:00:00 [facility] Meningococcal 2011-07-03 Completed [facility] Polysaccharide 00:00:00 [facility] (groups A, C, Y and Branc h W-135) conjugate vaccine (MCV4P) TDAP 2011-07-03 Completed [facility] 00:00:00 [facility] Varicella 2011-07-03 Completed [facility] (varivax)(chicken 00:00:00 [facility] HPV Unspecified 2011-07-03 Completed [facility] 00:00:00 [facility] Meningococcal 2011-07-03 Completed [facility] Polysaccharide 00:00:00 [facility] (groups A, C, Y and Branc h W-135) conjugate vaccine (MCV4P) TDAP 2011-07-03 Completed [facility] 00:00:00 [facility] Varicella 2011-07-03 Completed [facility] (varivax)(chicken 00:00:00 [facility] HPV Unspecified 2011-07-03 Completed [facility] 00:00:00 [facility] Meningococcal 2011-07-03 Completed [facility] Polysaccharide 00:00:00 [facility] (groups A, C, Y and Branc h W-135) conjugate vaccine (MCV4P) TDAP 2011-07-03 Completed [facility] 00:00:00 [facility] Varicella 2011-07-03 Completed [facility] (varivax)(chicken 00:00:00 [facility] HPV Unspecified 2011-07-03 Completed [facility] 00:00:00 [facility] Meningococcal 2011-07-03 Completed [facility] Polysaccharide 00:00:00 [facility] (groups A, C, Y and Branc h W-135) conjugate vaccine (MCV4P) TDAP 2011-07-03 Completed [facility] 00:00:00 [facility] Varicella 2011-07-03 Completed [facility] (varivax)(chicken 00:00:00 [facility] HPV Unspecified 2011-07-03 Completed [facility] 00:00:00 [facility] Meningococcal 2011-07-03 Completed [facility] Polysaccharide 00:00:00 [facility] radha (groups A, C, Y and Branc h W-135) conjugate vaccine (MCV4P) TDAP 2011-07-03 Completed [facility] 00:00:00 [facility] Varicella 2011-07-03 Completed [facility] (varivax)(chicken 00:00:00 [facility] HPV Unspecified 2011-07-03 Completed [facility] 00:00:00 [facility] Meningococcal 2011-07-03 Completed [facility] Polysaccharide 00:00:00 [facility] radha (groups A, C, Y and Branc h W-135) conjugate vaccine (MCV4P) TDAP 2011-07-03 Completed [facility] 00:00:00 [facility] Varicella 2011-07-03 Completed [facility] (varivax)(chicken 00:00:00 [facility]ox[facility] HPV Unspecified 2011-07-03 Completed [facility] 00:00:00 [facility] Meningococcal 2011-07-03 Completed [facility] Polysaccharide 00:00:00 [facility] radha (groups A, C, Y and Branc h W-135) conjugate vaccine (MCV4P) TDAP 2011-07-03 Completed [facility] 00:00:00 [facility] Varicella 2011-07-03 Completed [facility] (varivax)(chicken 00:00:00 [facility] HPV Unspecified 2011-07-03 Completed [facility] 00:00:00 [facility] Meningococcal 2011-07-03 Completed [facility] Polysaccharide 00:00:00 [facility] radha (groups A, C, Y and Branc h W-135) conjugate vaccine (MCV4P) TDAP 2011-07-03 Completed [facility] 00:00:00 [facility] Varicella 2011-07-03 Completed [facility] (varivax)(chicken 00:00:00 [facility] HPV Unspecified 2011-07-03 Completed [facility] 00:00:00 [facility] Meningococcal 2011-07-03 Completed [facility] Polysaccharide 00:00:00 [facility] (groups A, C, Y and Branc h W-135) conjugate vaccine (MCV4P) TDAP 2011-07-03 Completed [facility] 00:00:00 [facility] Varicella 2011-07-03 Completed [facility] (varivax)(chicken 00:00:00 [facility] HPV Unspecified 2011-07-03 Completed [facility] 00:00:00 [facility] Meningococcal 2011-07-03 Completed [facility] Polysaccharide 00:00:00 [facility] (groups A, C, Y and Branc h W-135) conjugate vaccine (MCV4P) TDAP 2011-07-03 Completed [facility] 00:00:00 [facility] Varicella 2011-07-03 Completed [facility] (varivax)(chicken 00:00:00 [facility] HPV Unspecified 2011-07-03 Completed [facility] 00:00:00 [facility] Meningococcal 2011-07-03 Completed [facility] Polysaccharide 00:00:00 [facility] (groups A, C, Y and Branc h W-135) conjugate vaccine (MCV4P) TDAP 2011-07-03 Completed [facility] 00:00:00 [facility] Varicella 2011-07-03 Completed [facility] (varivax)(chicken 00:00:00 [facility] HPV Unspecified 2011-07-03 Completed [facility] 00:00:00 [facility] Meningococcal 2011-07-03 Completed [facility] Polysaccharide 00:00:00 [facility] (groups A, C, Y and Branc h W-135) conjugate vaccine (MCV4P) TDAP 2011-07-03 Completed [facility] 00:00:00 [facility] Varicella 2011-07-03 Completed [facility] (varivax)(chicken 00:00:00 [facility] HPV Unspecified 2011-07-03 Completed [facility] 00:00:00 [facility] Meningococcal 2011-07-03 Completed [facility] Polysaccharide 00:00:00 [facility] (groups A, C, Y and Branc h W-135) conjugate vaccine (MCV4P) TDAP 2011-07-03 Completed [facility] 00:00:00 [facility] Varicella 2011-07-03 Completed [facility] (varivax)(chicken 00:00:00 [facility] HPV Unspecified 2011-07-03 Completed [facility] 00:00:00 [facility] Meningococcal 2011-07-03 Completed [facility] Polysaccharide 00:00:00 [facility] (groups A, C, Y and Branc h W-135) conjugate vaccine (MCV4P) TDAP 2011-07-03 Completed [facility] 00:00:00 [facility] Varicella 2011-07-03 Completed [facility] (varivax)(chicken 00:00:00 [facility] HPV Unspecified 2011-07-03 Completed [facility] 00:00:00 [facility] Meningococcal 2011-07-03 Completed [facility] Polysaccharide 00:00:00 [facility] (groups A, C, Y and Branc h W-135) conjugate vaccine (MCV4P) TDAP 2011-07-03 Completed [facility] 00:00:00 [facility] Varicella 2011-07-03 Completed [facility] (varivax)(chicken 00:00:00 [facility]ox[facility] HPV Unspecified 2011-07-03 Completed [facility] 00:00:00 [facility] Meningococcal 2011-07-03 Completed [facility] Polysaccharide 00:00:00 [facility] (groups A, C, Y and Branc h W-135) conjugate vaccine (MCV4P) TDAP 2011-07-03 Completed [facility] 00:00:00 [facility] Varicella 2011-07-03 Completed [facility] (varivax)(chicken 00:00:00 [facility] HPV Unspecified 2011-07-03 Completed [facility] 00:00:00 [facility] Meningococcal 2011-07-03 Completed [facility] Polysaccharide 00:00:00 [facility] (groups A, C, Y and Branc h W-135) conjugate vaccine (MCV4P) TDAP 2011-07-03 Completed [facility] 00:00:00 [facility] Varicella 2011-07-03 Completed [facility] (varivax)(chicken 00:00:00 [facility] TDAP 2009-10-19 Completed [facility] 00:00:00 [facility] TDAP 2009-10-19 Completed [facility] 00:00:00 [facility] TDAP 2009-10-19 Completed [facility] 00:00:00 [facility] TDAP 2009-10-19 Completed [facility] 00:00:00 [facility] TDAP 2009-10-19 Completed [facility] 00:00:00 [facility] TDAP 2009-10-19 Completed [facility] 00:00:00 [facility] TDAP 2009-10-19 Completed [facility] 00:00:00 [facility] TDAP 2009-10-19 Completed [facility] 00:00:00 [facility] TDAP 2009-10-19 Completed [facility] 00:00:00 [facility] TDAP 2009-10-19 Completed [facility] 00:00:00 [facility] TDAP 2009-10-19 Completed [facility] 00:00:00 [facility] TDAP 2009-10-19 Completed [facility] 00:00:00 [facility] TDAP 2009-10-19 Completed [facility] 00:00:00 [facility] TDAP 2009-10-19 Completed [facility] 00:00:00 [facility] TDAP 2009-10-19 Completed [facility] 00:00:00 [facility] TDAP 2009-10-19 Completed [facility] 00:00:00 [facility] TDAP 2009-10-19 Completed [facility] 00:00:00 [facility] TDAP 2009-10-19 Completed [facility] 00:00:00 [facility] TDAP 2009-10-19 Completed [facility] 00:00:00 [facility] HEPATITIS A 2006-03-17 Completed [facility] 00:00:00 [facility] HEPATITIS A 2006-03-17 Completed [facility] 00:00:00 [facility] HEPATITIS A 2006-03-17 Completed [facility] 00:00:00 [facility] HEPATITIS A 2006-03-17 Completed [facility] 00:00:00 [facility] HEPATITIS A 2006-03-17 Completed [facility] 00:00:00 [facility] HEPATITIS A 2006-03-17 Completed [facility] 00:00:00 [facility] HEPATITIS A 2006-03-17 Completed [facility] 00:00:00 [facility] HEPATITIS A 2006-03-17 Completed [facility] 00:00:00 [facility] HEPATITIS A 2006-03-17 Completed [facility] 00:00:00 [facility] HEPATITIS A 2006-03-17 Completed [facility] 00:00:00 [facility] HEPATITIS A 2006-03-17 Completed [facility] 00:00:00 [facility] HEPATITIS A 2006-03-17 Completed [facility] 00:00:00 [facility] HEPATITIS A 2006-03-17 Completed [facility] 00:00:00 [facility] HEPATITIS A 2006-03-17 Completed [facility] 00:00:00 [facility] HEPATITIS A 2006-03-17 Completed [facility] 00:00:00 [facility] HEPATITIS A 2006-03-17 Completed [facility] 00:00:00 [facility] HEPATITIS A 2006-03-17 Completed [facility] 00:00:00 [facility] HEPATITIS A 2006-03-17 Completed [facility] 00:00:00 [facility] HEPATITIS A 2006-03-17 Completed [facility] 00:00:00 [facility] HEPATITIS A 2005-02-24 Completed [facility] 00:00:00 [facility] HEPATITIS A 2005-02-24 Completed [facility] 00:00:00 [facility] HEPATITIS A 2005-02-24 Completed [facility] 00:00:00 [facility] HEPATITIS A 2005-02-24 Completed [facility] 00:00:00 [facility] HEPATITIS A 2005-02-24 Completed [facility] 00:00:00 [facility] HEPATITIS A 2005-02-24 Completed [facility] 00:00:00 [facility] HEPATITIS A 2005-02-24 Completed [facility] 00:00:00 [facility] HEPATITIS A 2005-02-24 Completed [facility] 00:00:00 [facility] HEPATITIS A 2005-02-24 Completed [facility] 00:00:00 [facility] HEPATITIS A 2005-02-24 Completed [facility] 00:00:00 [facility] HEPATITIS A 2005-02-24 Completed [facility] 00:00:00 [facility] HEPATITIS A 2005-02-24 Completed [facility] 00:00:00 [facility] HEPATITIS A 2005-02-24 Completed [facility] 00:00:00 [facility] HEPATITIS A 2005-02-24 Completed [facility] 00:00:00 [facility] HEPATITIS A 2005-02-24 Completed [facility] 00:00:00 [facility] HEPATITIS A 2005-02-24 Completed [facility] 00:00:00 [facility] HEPATITIS A 2005-02-24 Completed [facility] 00:00:00 [facility] HEPATITIS A 2005-02-24 Completed [facility] 00:00:00 [facility] HEPATITIS A 2005-02-24 Completed [facility] 00:00:00 [facility] DTAP 2002-03-07 Completed [facility] 00:00:00 [facility] MMR 2002-03-07 Completed [facility] 00:00:00 [facility] Polio (IPV/OPV) 2002-03-07 Completed [facility] 00:00:00 [facility] DTAP 2002-03-07 Completed [facility] 00:00:00 [facility] MMR 2002-03-07 Completed [facility] 00:00:00 [facility] Polio (IPV/OPV) 2002-03-07 Completed [facility] 00:00:00 [facility] DTAP 2002-03-07 Completed [facility] 00:00:00 [facility] MMR 2002-03-07 Completed [facility] 00:00:00 [facility] Polio (IPV/OPV) 2002-03-07 Completed [facility] 00:00:00 [facility] DTAP 2002-03-07 Completed [facility] 00:00:00 [facility] MMR 2002-03-07 Completed [facility] 00:00:00 [facility] Polio (IPV/OPV) 2002-03-07 Completed [facility] 00:00:00 [facility] DTAP 2002-03-07 Completed [facility] 00:00:00 [facility] MMR 2002-03-07 Completed [facility] 00:00:00 [facility] Polio (IPV/OPV) 2002-03-07 Completed [facility] 00:00:00 [facility] DTAP 2002-03-07 Completed [facility] 00:00:00 [facility] MMR 2002-03-07 Completed [facility] 00:00:00 [facility] Polio (IPV/OPV) 2002-03-07 Completed [facility] 00:00:00 [facility] DTAP 2002-03-07 Completed [facility] 00:00:00 [facility] MMR 2002-03-07 Completed [facility] 00:00:00 [facility] Polio (IPV/OPV) 2002-03-07 Completed [facility] 00:00:00 [facility] DTAP 2002-03-07 Completed [facility] 00:00:00 [facility] MMR 2002-03-07 Completed [facility] 00:00:00 [facility] Polio (IPV/OPV) 2002-03-07 Completed [facility] 00:00:00 [facility] DTAP 2002-03-07 Completed [facility] 00:00:00 [facility] MMR 2002-03-07 Completed [facility] 00:00:00 [facility] Polio (IPV/OPV) 2002-03-07 Completed [facility] 00:00:00 [facility] DTAP 2002-03-07 Completed [facility] 00:00:00 [facility] MMR 2002-03-07 Completed [facility] 00:00:00 [facility] Polio (IPV/OPV) 2002-03-07 Completed [facility] 00:00:00 [facility] DTAP 2002-03-07 Completed [facility] 00:00:00 [facility] MMR 2002-03-07 Completed [facility] 00:00:00 [facility] Polio (IPV/OPV) 2002-03-07 Completed [facility] 00:00:00 [facility] DTAP 2002-03-07 Completed [facility] 00:00:00 [facility] MMR 2002-03-07 Completed [facility] 00:00:00 [facility] Polio (IPV/OPV) 2002-03-07 Completed [facility] 00:00:00 [facility] DTAP 2002-03-07 Completed [facility] 00:00:00 [facility] MMR 2002-03-07 Completed [facility] 00:00:00 [facility] Polio (IPV/OPV) 2002-03-07 Completed [facility] 00:00:00 [facility] DTAP 2002-03-07 Completed [facility] 00:00:00 [facility] MMR 2002-03-07 Completed [facility] 00:00:00 [facility] Polio (IPV/OPV) 2002-03-07 Completed [facility] 00:00:00 [facility] DTAP 2002-03-07 Completed [facility] 00:00:00 [facility] MMR 2002-03-07 Completed [facility] 00:00:00 [facility] Polio (IPV/OPV) 2002-03-07 Completed [facility] 00:00:00 [facility] DTAP 2002-03-07 Completed [facility] 00:00:00 [facility] MMR 2002-03-07 Completed [facility] 00:00:00 [facility] Polio (IPV/OPV) 2002-03-07 Completed [facility] 00:00:00 [facility] DTAP 2002-03-07 Completed [facility] 00:00:00 [facility] MMR 2002-03-07 Completed [facility] 00:00:00 [facility] Polio (IPV/OPV) 2002-03-07 Completed [facility] 00:00:00 [facility] DTAP 2002-03-07 Completed [facility] 00:00:00 [facility] MMR 2002-03-07 Completed [facility] 00:00:00 [facility] Polio (IPV/OPV) 2002-03-07 Completed [facility] 00:00:00 [facility] DTAP 2002-03-07 Completed [facility] 00:00:00 [facility] MMR 2002-03-07 Completed [facility] 00:00:00 [facility] Polio (IPV/OPV) 2002-03-07 Completed [facility] 00:00:00 [facility] DTAP 1997 Completed [facility] 00:00:00 [facility] HIB 4 Dose Schedule 1997 Completed [facility] 00:00:00 [facility] Hep B, Adol or Pedi 1997 Completed [facility] of Dosage 00:00:00 [facility] DTAP 1997 Completed [facility] 00:00:00 [facility] HIB 4 Dose Schedule 1997 Completed [facility] 00:00:00 [facility] Hep B, Adol or Pedi 1997 Completed [facility] Dosage 00:00:00 [facility] DTAP 1997 Completed [facility] 00:00:00 [facility] HIB 4 Dose Schedule 1997 Completed [facility] 00:00:00 [facility] Hep B, Adol or Pedi 1997 Completed [facility] Dosage 00:00:00 [facility] DTAP 1997 Completed [facility] 00:00:00 [facility] HIB 4 Dose Schedule 1997 Completed [facility] 00:00:00 [facility] Hep B, Adol or Pedi 1997 Completed [facility] of Dosage 00:00:00 [facility] DTAP 1997 Completed [facility] 00:00:00 [facility] HIB 4 Dose Schedule 1997 Completed [facility] 00:00:00 [facility] Hep B, Adol or Pedi 1997 Completed [facility] Dosage 00:00:00 [facility] DTAP 1997 Completed [facility] 00:00:00 [facility] HIB 4 Dose Schedule 1997 Completed [facility] 00:00:00 [facility] Hep B, Adol or Pedi 1997 Completed [facility] of Dosage 00:00:00 [facility] DTAP 1997 Completed [facility] 00:00:00 [facility] HIB 4 Dose Schedule 1997 Completed [facility] 00:00:00 [facility] Hep B, Adol or Pedi 1997 Completed [facility] of Dosage 00:00:00 [facility] DTAP 1997 Completed [facility] 00:00:00 [facility] HIB 4 Dose Schedule 1997 Completed [facility] 00:00:00 [facility] Hep B, Adol or Pedi 1997 Completed [facility] of Dosage 00:00:00 [facility] DTAP 1997 Completed [facility] 00:00:00 [facility] HIB 4 Dose Schedule 1997 Completed [facility] 00:00:00 [facility] Hep B, Adol or Pedi 1997 Completed [facility] Dosage 00:00:00 [facility] DTAP 1997 Completed [facility] 00:00:00 [facility] HIB 4 Dose Schedule 1997 Completed [facility] 00:00:00 [facility] Hep B, Adol or Pedi 1997 Completed [facility] of Dosage 00:00:00 [facility] DTAP 1997 Completed [facility] 00:00:00 [facility] HIB 4 Dose Schedule 1997 Completed [facility] 00:00:00 [facility] Hep B, Adol or Pedi 1997 Completed [facility] of Dosage 00:00:00 [facility] DTAP 1997 Completed [facility] 00:00:00 [facility] HIB 4 Dose Schedule 1997 Completed [facility] 00:00:00 [facility] Hep B, Adol or Pedi 1997 Completed [facility] of Dosage 00:00:00 [facility] DTAP 1997 Completed [facility] 00:00:00 [facility] HIB 4 Dose Schedule 1997 Completed [facility] 00:00:00 [facility] Hep B, Adol or Pedi 1997 Completed [facility] of Dosage 00:00:00 [facility] DTAP 1997 Completed [facility] 00:00:00 [facility] HIB 4 Dose Schedule 1997 Completed [facility] 00:00:00 [facility] Hep B, Adol or Pedi 1997 Completed [facility] of Dosage 00:00:00 [facility] DTAP 1997 Completed [facility] 00:00:00 [facility] HIB 4 Dose Schedule 1997 Completed [facility] 00:00:00 [facility] Hep B, Adol or Pedi 1997 Completed [facility] Dosage 00:00:00 [facility] DTAP 1997 Completed [facility] 00:00:00 [facility] HIB 4 Dose Schedule 1997 Completed [facility] 00:00:00 [facility] Hep B, Adol or Pedi 1997 Completed [facility] Dosage 00:00:00 [facility] DTAP 1997 Completed [facility] 00:00:00 [facility] HIB 4 Dose Schedule 1997 Completed [facility] 00:00:00 [facility] Hep B, Adol or Pedi 1997 Completed [facility] Dosage 00:00:00 [facility] DTAP 1997 Completed [facility] 00:00:00 [facility] HIB 4 Dose Schedule 1997 Completed [facility] 00:00:00 [facility] Hep B, Adol or Pedi 1997 Completed [facility] Dosage 00:00:00 [facility] DTAP 1997 Completed [facility] 00:00:00 [facility] HIB 4 Dose Schedule 1997 Completed [facility] 00:00:00 [facility] Hep B, Adol or Pedi 1997 Completed [facility] of Dosage 00:00:00 [facility] DTAP 1997 Completed [facility] 00:00:00 [facility] HIB 4 Dose Schedule 1997 Completed [facility] 00:00:00 [facility] Polio (IPV/OPV) 1997 Completed [facility] y of 00:00:00 [facility] DTAP 1997 Completed University of 00:00:00 [facility] HIB 4 Dose Schedule 1997 Completed Unive rsity of 00:00:00 [facility] Polio (IPV/OPV) 1997 Completed Universit y of 00:00:00 [facility] DTAP 1997 Completed University of 00:00:00 [facility] HIB 4 Dose Schedule 1997 Completed Unive rsity of 00:00:00 [facility] Polio (IPV/OPV) 1997 Completed Universit y of 00:00:00 [facility] DTAP 1997 Completed University of 00:00:00 [facility] HIB 4 Dose Schedule 1997 Completed Unive rsity of 00:00:00 [facility] Polio (IPV/OPV) 1997 Completed Universit y of 00:00:00 [facility] DTAP 1997 Completed University of 00:00:00 [facility] HIB 4 Dose Schedule 1997 Completed Unive rsity of 00:00:00 [facility] Polio (IPV/OPV) 1997 Completed Universit y of 00:00:00 [facility] DTAP 1997 Completed University of 00:00:00 [facility] HIB 4 Dose Schedule 1997 Completed Unive rsity of 00:00:00 [facility] Polio (IPV/OPV) 1997 Completed Universit y of 00:00:00 [facility] DTAP 1997 Completed University of 00:00:00 [facility] HIB 4 Dose Schedule 1997 Completed Unive rsity of 00:00:00 [facility] Polio (IPV/OPV) 1997 Completed Universit y of 00:00:00 [facility] DTAP 1997 Completed University of 00:00:00 [facility] HIB 4 Dose Schedule 1997 Completed Unive rsity of 00:00:00 [facility] Polio (IPV/OPV) 1997 Completed Universit y of 00:00:00 [facility] DTAP 1997 Completed University of 00:00:00 [facility] HIB 4 Dose Schedule 1997 Completed Unive rsity of 00:00:00 [facility] Polio (IPV/OPV) 1997 Completed Universit y of 00:00:00 [facility] DTAP 1997 Completed University of 00:00:00 [facility] HIB 4 Dose Schedule 1997 Completed Unive rsity of 00:00:00 [facility] Polio (IPV/OPV) 1997 Completed Universit y of 00:00:00 [facility] DTAP 1997 Completed University of 00:00:00 [facility] HIB 4 Dose Schedule 1997 Completed Unive rsity of 00:00:00 [facility] Polio (IPV/OPV) 1997 Completed Universit y of 00:00:00 [facility] DTAP 1997 Completed University of 00:00:00 [facility] HIB 4 Dose Schedule 1997 Completed Unive rsity of 00:00:00 [facility] Polio (IPV/OPV) 1997 Completed Universit y of 00:00:00 [facility] DTAP 1997 Completed University of 00:00:00 [facility] HIB 4 Dose Schedule 1997 Completed Unive rsity of 00:00:00 [facility] Polio (IPV/OPV) 1997 Completed Universit y of 00:00:00 [facility] DTAP 1997 Completed University of 00:00:00 [facility] HIB 4 Dose Schedule 1997 Completed Unive rsity of 00:00:00 [facility] Polio (IPV/OPV) 1997 Completed Universit y of 00:00:00 [facility] DTAP 1997 Completed University of 00:00:00 [facility] HIB 4 Dose Schedule 1997 Completed Unive rsity of 00:00:00 [facility] Polio (IPV/OPV) 1997 Completed Universit y of 00:00:00 [facility] DTAP 1997 Completed University of 00:00:00 [facility] HIB 4 Dose Schedule 1997 Completed Unive rsity of 00:00:00 [facility] Polio (IPV/OPV) 1997 Completed Universit y of 00:00:00 [facility] DTAP 1997 Completed University of 00:00:00 [facility] HIB 4 Dose Schedule 1997 Completed Unive rsity of 00:00:00 [facility] Polio (IPV/OPV) 1997 Completed Universit y of 00:00:00 [facility] DTAP 1997 Completed University of 00:00:00 [facility] HIB 4 Dose Schedule 1997 Completed Unive rsity of 00:00:00 [facility] Polio (IPV/OPV) 1997 Completed Universit y of 00:00:00 [facility] DTAP 1997 Completed University of 00:00:00 [facility] HIB 4 Dose Schedule 1997 Completed Unive rsity of 00:00:00 [facility] Polio (IPV/OPV) 1997 Completed Universit y of 00:00:00 [facility] DTAP 1997 Completed University of 00:00:00 [facility] HIB 4 Dose Schedule 1997 Completed Unive rsity of 00:00:00 [facility] Hep B, Adol or Pedi 1997 Completed Unive rsity of Dosage 00:00:00 [facility] Polio (IPV/OPV) 1997 Completed Universit y of 00:00:00 [facility] DTAP 1997 Completed [facility] 00:00:00 [facility] HIB 4 Dose Schedule 1997 Completed Unive rsity of 00:00:00 [facility] Hep B, Adol or Pedi 1997 Completed Unive rsity of Dosage 00:00:00 [facility] Polio (IPV/OPV) 1997 Completed Universit y of 00:00:00 [facility] DTAP 1997 Completed [facility] of 00:00:00 [facility] HIB 4 Dose Schedule 1997 Completed Unive rsity of 00:00:00 [facility] Hep B, Adol or Pedi 1997 Completed Unive rsity of Dosage 00:00:00 [facility] Polio (IPV/OPV) 1997 Completed Universit y of 00:00:00 [facility] DTAP 1997 Completed [facility] of 00:00:00 [facility] HIB 4 Dose Schedule 1997 Completed Unive rsity of 00:00:00 [facility] Hep B, Adol or Pedi 1997 Completed Unive rsity of Dosage 00:00:00 [facility] Polio (IPV/OPV) 1997 Completed Universit y of 00:00:00 [facility] DTAP 1997 Completed [facility] of 00:00:00 [facility] HIB 4 Dose Schedule 1997 Completed Unive rsity of 00:00:00 [facility] Hep B, Adol or Pedi 1997 Completed Unive rsity of Dosage 00:00:00 [facility] Polio (IPV/OPV) 1997 Completed Universit y of 00:00:00 [facility] DTAP 1997 Completed [facility] of 00:00:00 [facility] HIB 4 Dose Schedule 1997 Completed Unive rsity of 00:00:00 [facility] Hep B, Adol or Pedi 1997 Completed Unive rsity of Dosage 00:00:00 [facility] Polio (IPV/OPV) 1997 Completed Universit y of 00:00:00 [facility] DTAP 1997 Completed [facility] of 00:00:00 [facility] HIB 4 Dose Schedule 1997 Completed Unive rsity of 00:00:00 [facility] Hep B, Adol or Pedi 1997 Completed Unive rsity of Dosage 00:00:00 [facility] Polio (IPV/OPV) 1997 Completed Universit y of 00:00:00 [facility] DTAP 1997 Completed [facility] 00:00:00 [facility] HIB 4 Dose Schedule 1997 Completed Unive rsity of 00:00:00 [facility] Hep B, Adol or Pedi 1997 Completed Unive rsity of Dosage 00:00:00 [facility] Polio (IPV/OPV) 1997 Completed Universit y of 00:00:00 [facility] DTAP 1997 Completed [facility] 00:00:00 [facility] HIB 4 Dose Schedule 1997 Completed Unive rsity of 00:00:00 [facility] Hep B, Adol or Pedi 1997 Completed Unive rsity of Dosage 00:00:00 [facility] Polio (IPV/OPV) 1997 Completed Universit y of 00:00:00 [facility] DTAP 1997 Completed [facility] 00:00:00 [facility] HIB 4 Dose Schedule 1997 Completed Unive rsity of 00:00:00 [facility] Hep B, Adol or Pedi 1997 Completed Unive rsity of Dosage 00:00:00 [facility] Polio (IPV/OPV) 1997 Completed [facility]it y of 00:00:00 [facility] DTAP 1997 Completed [facility] 00:00:00 [facility] HIB 4 Dose Schedule 1997 Completed Unive rsity of 00:00:00 [facility] Hep B, Adol or Pedi 1997 Completed Unive rsity of Dosage 00:00:00 [facility] Polio (IPV/OPV) 1997 Completed Universit y of 00:00:00 [facility] DTAP 1997 Completed [facility] 00:00:00 [facility] HIB 4 Dose Schedule 1997 Completed Unive rsity of 00:00:00 [facility] Hep B, Adol or Pedi 1997 Completed Unive rsity of Dosage 00:00:00 [facility] Polio (IPV/OPV) 1997 Completed [facility]it y [facility] 00:00:00 [facility] DTAP 1997 Completed [facility] 00:00:00 [facility] HIB 4 Dose Schedule 1997 Completed Unive rsity of 00:00:00 [facility] Hep B, Adol or Pedi 1997 Completed Unive rsity of Dosage 00:00:00 [facility] Polio (IPV/OPV) 1997 Completed Universit y of 00:00:00 [facility] DTAP 1997 Completed [facility] 00:00:00 [facility] HIB 4 Dose Schedule 1997 Completed Unive rsity of 00:00:00 [facility] Hep B, Adol or Pedi 1997 Completed Unive rsity of Dosage 00:00:00 [facility] Polio (IPV/OPV) 1997 Completed Universit y of 00:00:00 [facility] DTAP 1997 Completed [facility] 00:00:00 [facility] HIB 4 Dose Schedule 1997 Completed Unive rsity of 00:00:00 [facility] Hep B, Adol or Pedi 1997 Completed Unive rsity of Dosage 00:00:00 [facility] Polio (IPV/OPV) 1997 Completed [facility]it [facility] 00:00:00 [facility] DTAP 1997 Completed [facility] 00:00:00 [facility] HIB 4 Dose Schedule 1997 Completed Unive rsity of 00:00:00 [facility] Hep B, Adol or Pedi 1997 Completed Unive rsity of Dosage 00:00:00 [facility] Polio (IPV/OPV) 1997 Completed Universit y of 00:00:00 [facility] DTAP 1997 Completed [facility] 00:00:00 [facility] HIB 4 Dose Schedule 1997 Completed Unive rsity of 00:00:00 [facility] Hep B, Adol or Pedi 1997 Completed Unive rsity of Dosage 00:00:00 [facility] Polio (IPV/OPV) 1997 Completed Universit y of 00:00:00 [facility] DTAP 1997 Completed [facility] 00:00:00 [facility] HIB 4 Dose Schedule 1997 Completed Unive rsity of 00:00:00 [facility] Hep B, Adol or Pedi 1997 Completed Unive rsity of Dosage 00:00:00 [facility] Polio (IPV/OPV) 1997 Completed [facility]it [facility] 00:00:00 [facility] DTAP 1997 Completed [facility] 00:00:00 [facility] HIB 4 Dose Schedule 1997 Completed Unive rsity of 00:00:00 [facility] Hep B, Adol or Pedi 1997 Completed Unive rsity of Dosage 00:00:00 [facility] Polio (IPV/OPV) 1997 Completed Universit y of 00:00:00 [facility] Hep B, Adol or Pedi 1997 Completed Unive rsity of Dosage 00:00:00 [facility] Hep B, Adol or Pedi 1997 Completed Unive rsity of Dosage 00:00:00 [facility] Hep B, Adol or Pedi 1997 Completed Unive rsity of Dosage 00:00:00 [facility] Hep B, Adol or Pedi 1997 Completed Unive rsity of Dosage 00:00:00 [facility] Hep B, Adol or Pedi 1997 Completed Unive rsity of Dosage 00:00:00 [facility] Hep B, Adol or Pedi 1997 Completed Unive rsity of Dosage 00:00:00 [facility] Hep B, Adol or Pedi 1997 Completed Unive rsity of Dosage 00:00:00 [facility] Hep B, Adol or Pedi 1997 Completed Unive rsity of Dosage 00:00:00 [facility] Hep B, Adol or Pedi 1997 Completed Unive rsity of Dosage 00:00:00 [facility] Hep B, Adol or Pedi 1997 Completed Unive rsity of Dosage 00:00:00 [facility] Hep B, Adol or Pedi 1997 Completed Unive rsity of Dosage 00:00:00 [facility] Hep B, Adol or Pedi 1997 Completed Unive rsity of Dosage 00:00:00 [facility] Hep B, Adol or Pedi 1997 Completed Unive rsity of Dosage 00:00:00 [facility] Hep B, Adol or Pedi 1997 Completed Unive rsity of Dosage 00:00:00 [facility] Hep B, Adol or Pedi 1997 Completed Unive rsity of Dosage 00:00:00 [facility] Hep B, Adol or Pedi 1997 Completed Unive rsity of Dosage 00:00:00 [facility] Hep B, Adol or Pedi 1997 Completed Unive rsity of Dosage 00:00:00 [facility] Hep B, Adol or Pedi 1997 Completed Unive rsity of Dosage 00:00:00 [facility] Hep B, Adol or Pedi 1997 Completed Unive rsity of Dosage 00:00:00 [facility] Vital Signs Vital Name Observation Time Observation Value Comments Source Systolic blood 2022-11-16 20:04:00 113 mm[Hg] Univer sity of pressure [facility] Diastolic blood 2022-11-16 20:04:00 76 mm[Hg] Unive rsity of pressure [facility] Heart rate 2022-11-16 20:04:00 107 /min [facility]i ty of [facility] Body temperature 2022-11-16 20:04:00 [address] [facility] Respiratory rate 2022-11-16 20:04:00 15 /min Univ ersity of [facility] Body height 2022-11-16 20:04:00 165.1 cm Universi ty of [facility] Body weight 2022-11-16 20:04:00 80.287 kg Universi ty of [facility] BMI 2022-11-16 20:04:00 29.45 kg/m2 Universi ty of [facility] Oxygen saturation in 2022-11-16 20:04:00 99 /min University Arterial blood by [facility] Pulse oximetry Branch Systolic blood 2022-06-19 22:10:00 128 mm[Hg] Univer sity of pressure [facility] Diastolic blood 2022-06-19 22:10:00 79 mm[Hg] Unive rsity of pressure [facility] Heart rate 2022-06-19 22:10:00 97 /min Universi ty of [facility] Body temperature 2022-06-19 22:10:00 36.72 Carmen Univ ersity of [facility] Respiratory rate 2022-06-19 22:10:00 16 /min Univ ersity of [facility] Body height 2022-06-19 22:10:00 165.1 cm Universi ty of [facility] Body weight 2022-06-19 22:10:00 85.412 kg [facility]i ty of [facility] BMI 2022-06-19 22:10:00 31.33 kg/m2 [facility]i ty of [facility] Oxygen saturation in 2022-06-19 22:10:00 99 /min University Arterial blood by [facility] Pulse oximetry [place] Procedures Procedure Date / Time Performed Performing Clinician Lesley reza ASSIGNMENT OF BENEFITS 2022-11-16 19:59:35 Doctor Unassigned, No [facility] Encounters Start End Encounter Admission Attending Care Care Encounter Source Date/Time Date/Time Type Type Clinicians Facility Department ID 2021-05-16 Outpatient R MAXIMINO ROSARIO [facility] VLS [id number] Univers 16:38:[address] [facility] 2023-01-19 2023-01-19 [facility] [id number] Univers 00:00:00 00:00:00 Kristopher BRIGGS 350.1.13.10 ity of [facility] [place] [phone] [place] CASTELLANOS 072 [facility] 2022-11-16 2022-11-16 Outpatient R AMANDA [facility] [id number] Univers 15:00:00 16:09:13 KURTIS ity [facility] 2022-11-16 2022-11-16 Urgent Kurtis Patel [facility] 1.2.840.1 [id number] Univers 15:00:00 16:09:13 Care Unknown, Attending HEALTH 350.1.13.10 ity of [place] 4.2.7.2.686 Maikel as LEO?BLEA [phone] [place] BERNARD [address] [place] [facility] 2022-11-16 2022-11-16 Orders Doctor MONTES 1.2.840.114 [id number] Univers 00:00:00 00:00:00 Only Unassigned, KRISSY 350.1.13.10 ity of [place] [facility] 4.2.7.2.686 Maikel as [phone] [facility] 009 Branch 2022-09-18 2022-09-18 Outpatient R MATEUSZ [facility] [id number] Univers 16:00:00 16:00:00 ARRON ity [facility] 2022-09-18 2022-09-18 Telephone Theo [facility] [id number] Univers 00:00:00 00:00:00 Kristopher SPECIALTY 350.1.13.10 [place] [id number] [place] CASTELLANOS [address] [place] [address] 2022-06-27 2022-06-27 [facility] [id number] Univers 15:15:00 15:15:[address] [facility] 2022-06-19 2022-06-19 [facility] [id number] Univers 16:00:00 16:44:04 ARRON jeffrey [facility] 2022-06-19 2022-06-19 Office Kristopher Venegas [facility] 1.2.840.114 [id number] Univers 16:00:00 16:44:04 Visit Arron Child SPECIALTY 350.1.13.10 [place] [id number] [place] CASTELLANOS [address] [place] [address] 2022-06-16 2022-06-16 Telephone Abraham [facility] 1.2.840.114 [id number] Univers 00:00:00 00:00:00 Winsons SPECIALTY 350.1.13.10 [place] [id number] [place] val LEWISTONJeffrey [address] [place] [address] 2022-06-11 2022-06-11 Nurse JYOTI Heart 1.2.840.114 [id number] Univers 00:00:00 00:00:00 Triage Moisés REY 350.1.13.10 ity of HOSPITAL 4.2.7.2.686 Maikel as [id number] [address] 2022-06-11 2022-06-11 Telephone Sedrick [facility] 1.2.840.114 [id number] Univers 00:00:00 00:00:00 [place] SPECIALTY 350.1.13.10 [place] [id number] [place] val CASTELLANOS [address] [place] [address] 2022-04-18 2022-04-18 Telephone [facility] 1.2.840.114 [id number] Univers 00:00:00 00:00:00 Jun C PATIENT ACCOUNT ANALYST 350.1.13.10 ity of REGIONAL 4.2.7.2.686 Maikel as MATERNAL [id number] [facility] & CHILD [address] [place] [address] 2022-04-18 2022-04-18 Refill [facility] 1.2.422.801 [id number] Univers 00:00:00 00:00:00 Jun C PATIENT ACCOUNT ANALYST 350.1.13.10 ity of REGIONAL 4.2.7.2.686 Maikel as MATERNAL [phone] [facility] & CHILD [address] [place] [address] 2022-03-31 2022-03-31 Telephone [facility] 1.2.840.114 [id number] Univers 00:00:00 00:00:00 Jun C PATIENT ACCOUNT ANALYST 350.1.13.10 ity of REGIONAL 4.2.7.2.686 Maikel as MATERNAL [id number] [facility] & CHILD [address] [place] [address] 2022-03-31 2022-03-31 Telephone [facility] 1.2.840.114 [id number] Univers 00:00:00 00:00:00 Jun C PATIENT ACCOUNT ANALYST 350.1.13.10 ity of REGIONAL 4.2.7.2.686 Maikel as MATERNAL [id number] [facility] & CHILD [address] [place] [address] 2022-03-28 2022-03-28 Office [facility] [id number] Univers 15:45:00 16:22:23 Visit Jun C PATIENT ACCOUNT ANALYST 350.1.13.10 ity of REGIONAL 4.2.7.2.686 Maikel as MATERNAL [id number] [facility] & CHILD [address] [place] [address] 2022-03-28 2022-03-28 Outpatient R ROSA [facility] [id number] Univers 15:45:00 16:22:23 [address] o f [facility] 2022-03-28 2022-03-28 Outpatient R ROSA [facility] [id number] Univers 15:45:00 15:45:00 JUN ity o f [facility] 2022-03-27 2022-03-27 Telephone [facility] [id number] Univers 00:00:00 00:00:00 Roshunda R PATIENT ACCOUNT ANALYST 350.1.13.10 ity of REGIONAL 4.2.7.2.686 Maikel as MATERNAL [id number] [facility] & CHILD [address] [place] [address] 2022-03-17 2022-03-17 Telephone [facility] 1.2.831.641 [id number] Univers 00:00:00 00:00:00 Roshunda R PATIENT ACCOUNT ANALYST 350.1.13.10 ity of REGIONAL 4.2.7.2.686 Maikel as MATERNAL [id number] [facility] & [address] 2022-03-14 2022-03-14 [facility] [id number] Univers 00:00:00 00:00:00 Rosnda R PATIENT ACCOUNT ANALYST 350.1.13.10 ity of REGIONAL 4.2.7.2.686 Maikel as MATERNAL [id number] [address] 2022-03-08 2022-03-08 Outpatient R CAYETANO [facility] [id number] Univers 08:30:00 08:55:09 SANKETNDA ity o f [facility] 2022-03-08 2022-03-08 Office [facility] 1.2.840.114 [id number] Univers 08:30:00 08:55:09 Visit Roschristinanda R PATIENT ACCOUNT ANALYST 350.1.13.10 ity of REGIONAL 4.2.7.2.686 Maikel as MATERNAL [id number] [address] 2022-03-08 2022-03-08 Outpatient R CAYETANO [facility] [id number] Univers 08:30:00 08:55:09 ROSCHRISTINANDA ity o f [facility] 2022-03-04 2022-03-04 Patient Maureen [facility] 1.2.840.114 [id number] Univers 00:00:00 00:00:00 Secure Ms Rania HEALTH 350.1.13.10 [place]y of [place] 4.2.7.2.686 Maikel as LEO?BLEA [phone] Nj dicmain OLMEDO [address] [place] [address] [facility] 2022-03-02 2022-03-02 Outpatient R LUIS FELIPE [facility] [id number] Univers 13:09:08 23:59:[address] [facility] 2022-03-02 2022-03-02 [facility] 1.2.840.114 [id number] Univers 13:09:08 23:59:00 Encounter Jamar HEALTH 350.1.13.10 ity of [place] 4.2.7.2.686 Maikel as LEO?BLEA [id number] Nj dicmain MARCOS [address] [place] [address] [facility] 2022-03-02 2022-03-02 [facility] 1.2.840.114 [id number] Univers 12:40:00 13:15:58 Care Jamar HEALTH 350.1.13.10 it y of [place] 4.2.7.2.686 Maikel as LEO?BLEA [id number] Nj dicmain MARCOS [address] [facility] OFF[address] [facility] 2022-01-23 2022-01-23 Patient BROCK Moore 1.2.840.114 [id number] Univers 00:00:00 00:00:00 Secure [facility] Marco Cortez Y HEALTH 350.1.13.10 [place]y [place] [id number] [address] 2022-01-10 2022-01-10 Telephone aneudy [facility] 1.2.840.114 [id number] Univers 00:00:00 00:00:00 [place] SPECIALTY 350.1.13.10 [place] [id number] [place] CASTELLANOS [address] [place] [address] 2022-01-09 2022-01-09 Outpatient R ABRAHAM [facility] [id number] Univers 13:39:00 15:55:[address] [facility] 2022-01-09 2022-01-09 [facility] 1.2.840.114 [id number] Univers 13:39:00 15:55:00 Encounter Nisha HEALTH 350.1.13.10 ity of [place] 4.2.7.2.686 [facility] [id number] [address] ([facility]) 2022-01-09 2022-01-09 Surgery Maximino Rosario [facility] 1.2.859.221 [id number] Univers 14:30:00 15:15:00 [facility] SPECIALTY 350.1.13.10 ity of CARE 4.2.7.2.686 [facility] AT [id number] Nj dic[address] 2022-01-09 2022-01-09 Orders Doctor JYOTI 1.2.840.114 [id number] Univers 00:00:00 00:00:00 Only Unassigned, KRISSY 350.1.13.10 ity [place] [facility] 4.2.7.[address] [place] [address] [id number] [place] [address] Branch 2022-01-08 2022-01-08 Outpatient R PRETTY WEBSTER [facility] [id number] Univers 15:00:00 15:00:00 [address] ity of [facility] 2022-01-08 2022-01-08 Telephone [facility] [id number] Univers 00:00:00 00:00:00 Tay Zhao MULTISPEC 350.1.13.10 ity of IALTY 4.2.7.2.686 [place] [facility] [place] [id number] [address] DIAB[facility]ES CLINIC 2022-01-07 2022-01-07 Telephone [facility] 1.2.525.807 [id number] Univers 00:00:00 00:00:00 Tay GUARDADOPEC 350.1.13.10 ity of IALTY 4.2.7.2.686 [facility] [place] [id number] [facility] AND [address] [facility]IC 2022-01-06 2022-01-06 Laboratory Only, Adc Test [facility] 1.2.840. 114 [id number] Univers 16:00:00 16:15:00 Only Maximino Rosario RAHUL 350.1.13.10 ity of [facility] 4.2.7.2.686 [facility] [place] [id number] [address] 2022-01-06 2022-01-06 Outpatient R MAXIMINO ROSARIO [facility] [id number] Univers 16:00:00 16:00:[address] [facility] 2022-01-02 2022-01-02 Telephone Raquel [facility] 1.2.391.097 [id number] Univers 00:00:00 00:00:00 Tay GUARDADOPEC 350.1.13.10 ity of [place] [phone] [address] [facility] 2022-01-02 2022-01-02 Patient Raquel [facility] 1.2.840.114 [id number] Univers 00:00:00 00:00:00 Secure Msg Tay Zhao SPECIALTY 350.1.13.10 ity of CARE 4.2.7.2.686 [facility] [place] AT [phone] Nj jordan[address] 2021-12-23 2021-12-23 Brass Reclaimer Jey, [facility] Lab Main [facility] 1.2.8 40.114 [id number] Univers 17:15:00 17:30:00 Visit Tay García 350.1.13.10 ity of [facility] 4.2.7.2.686 [facility] [phone] Nj dical NAL [address] [place] [address] 2021-12-23 2021-12-23 Outpatient R RAQUEL [facility] [id number] Univers 17:15:00 17:15:00 TAY suarez [facility] 2021-12-20 2021-12-20 Brass Reclaimer Vtc-Lab [facility] 1.2.840.114 [id number] Univers 11:15:00 11:30:00 Visit Tay García 350.1.13.10 ity of IALTY 4.2.7.2.686 [facility] [phone] [address] [facility] 2021-12-20 2021-12-20 Brass Reclaimer Vtc-Lab [facility] 1.2.840.114 [id number] Univers 11:15:00 11:30:00 Visit Tay García Pavel MULTISPEC 350.1.13.10 ity of IAL[place] 4.2.7.2.686 [facility] [phone] [address] [facility] 2021-12-20 2021-12-20 [facility] [id number] Univers 09:30:00 11:25:41 TAY suarez [facility] 2021-12-20 2021-12-20 Office [facility] 1.2.840.114 [id number] Univers 09:30:00 11:25:41 Visit Tay Pavel [facility] 350.1.13.10 ity of IAL[place] 4.2.7.2.686 [facility] [phone] [address] [facility] 2021-12-20 2021-12-20 Outpatient R RAQUEL [facility] [id number] Univers 09:30:00 11:25:41 TAY suarez [facility] 2021-12-20 2021-12-20 Orders Doctor JYOTI 1.2.840.114 [id number] Univers 00:00:00 00:00:00 Only Unassigned, KRISSY 350.1.13.10 ity of [place] [facility] 4.2.7.2.686 Maikel as [phone] [address] 2021-12-07 2021-12-07 Outpatient R [facility] [id number] Univers 14:20:00 15:10:49 RADHIKA su[address] o f [facility] 2021-12-07 2021-12-07 Urgent [facility] 1.2.840.114 [id number] Univers 14:20:00 15:10:49 Care Radhika [facility] 350.1.13.10 ity of [place] 4.2.7.2.686 Maikel as LEO?BLEA [phone] Nj jordan[address] MEDICAL OFFICE BUILDING 2021-12-07 2021-12-07 Outpatient R CICI [facility] [id number] Univers 14:20:00 15:10:49 RADHIKA ity o [facility] 2021-10-30 2021-10-30 Outpatient R ALEKSANDR, [facility] [id number] Univers 14:45:00 14:45:00 ARCELIA enriquey o [facility] 2021-10-30 2021-10-30 Outpatient [facility] [id number] Univers 14:45:00 14:45:00 ARCELIAJAIMIE suarez o [facility] 2021-10-24 2021-10-24 Office [facility] 1.2.840.114 [id number] Univers 13:45:00 14:00:00 Visit Stoney SNYDER 350.1.13.10 i ty of [facility] 4.2.7.2.686 [place] [phone] [address] 2021-10-24 2021-10-24 Outpatient Ana PALMA [facility] [id number] Univers 13:45:00 13:45:00 [facility] 2021-10-22 2021-10-22 Outpatient Ana PALMA [facility] [id number] Univers 16:15:00 16:15:00 [facility] 2021-10-22 2021-10-22 Outpatient Ana PALMA [facility] [id number] Univers 16:15:00 16:15:00 [facility] 2021-10-18 2021-10-18 Outpatient Ana MONTEIRO [facility] [id number] Univers 09:45:00 09:45:00 ROSHUNDA ity o [facility] 2021-10-18 2021-10-18 Outpatient Ana MONTEIRO [facility] [id number] Univers 09:45:00 09:45:00 ROSHUNDA ity o [facility] 2021-10-18 2021-10-18 Outpatient Ana THOMPSON [facility] [id number] Univers 08:30:00 08:30:[address] [facility] 2021-10-10 2021-10-10 Outpatient R MINERVA [facility] [id number] Univers 07:49:55 23:59:00 STONEY ity [facility] 2021-10-10 2021-10-10 Hospital [facility] 1.2.840.114 [id number] Univers 07:49:55 23:59:00 Encounter Stoney KAY 350.1.13.10 ity of [place] 4.2.7.2.686 [facility] [phone] [facility] [address] 2021-10-03 2021-10-04 Office [facility] 1.2.840.114 [id number] Univers 14:45:00 11:00:18 Visit Stoney CLAUDIO 350.1.13.10 i ty of [facility] 4.2.7.2.686 [place] [phone] [facility] [address] 2021-10-03 2021-10-04 [facility] [id number] Univers 14:45:00 11:00:18 [facility] 2021-10-03 2021-10-03 Ancillary Sadiq Ritchie [facility] 1.2.840.11 [id number] Univers 15:30:00 16:15:00 Visit Stoney Palma 350.1.13.10 ity of Orin Edwards [facility] 4.2.7.2.686 [place] [phone] [facility] [address] 2021-10-03 2021-10-03 Outpatient R MINERVA [facility] [id number] Univers 14:45:00 14:45:00 CLATSKANIE ity [facility] 2021-10-03 2021-10-03 Out[facility] [id number] Univers 14:45:00 14:45:00 [facility] 2021-10-03 2021-10-03 Orders Doctor MONTES 1.2.840.114 [id number] Univers 00:00:00 00:00:00 Only Unassigned, KRISSY 350.1.13.10 ity [place] [facility] 4.2.7.2.686 Maikel [phone] [address] 2021-09-17 2021-09-17 Outpatient Ana DUGGAN [facility] [id number] Univers 18:00:00 18:00:00 MORGAN suarez [facility] 2021-09-17 2021-09-17 Orders Doctor MONTES 1.2.840.114 [id number] Univers 00:00:00 00:00:00 Only Unassigned, KRISSY 350.1.13.10 ity of [facility] 4.2.7.2.686 Maikel as [phone] [address] 2021-07-31 2021-07-31 Refill [facility] 1.2.840.114 [id number] Univers 00:00:00 00:00:00 [facility] 350.1.13.10 ity of [place] 4.2.7.2.686 Maikel as LEO?BLEA [phone] [facility] [address] [place] MEDICAL OFFICE BUILDING 2021-07-30 2021-07-30 Office Robinson [facility] 1.2.840.114 [id number] Univers 16:20:00 16:48:35 Visit [facility] 350.1.13.10 ity of [place] 4.2.7.2.686 Maikel as LEO?BLEA [phone] [place] [address] [place] MEDICAL OFFICE BUILDING 2021-07-30 2021-07-30 Outpatient MARCO GÓMEZ [facility] [id number] Univers 16:20:00 16:48:35 MARCO MOORE [facility] 2021-07-30 2021-07-30 Outpatient MARCO GÓMEZ [facility] [id number] Univers 16:20:00 16:20:00 MARCO MOORE [facility] 2021-07-30 2021-07-30 Outpatient Ana MONTEIRO [facility] [id number] Univers 13:00:00 13:50:05 JOSUE suarez o f [facility] 2021-07-30 2021-07-30 Office [facility] 1.2.840.114 [id number] Univers 13:00:00 13:50:05 Visit Roshunda R PATIENT ACCOUNT ANALYST 350.1.13.10 ity of [facility] 4.2.7.2.686 Maikel as MATERNAL [phone] Med ical & CHILD 107 [facility] 2021-07-30 2021-07-30 Outpatient R CAYETANO [facility] [id number] Univers 13:00:00 13:50:05 JOSUE suarez o f [facility] 2021-07-02 2021-07-02 Patient Robinson [facility] 1.2.840.114 [id number] Univers 00:00:00 00:00:00 [facility] 350.1.13.10 ity [facility] 4.2.7.2.686 Maikel as LEO?BLEA [phone] [address] MEDICAL OFFICE BUILDING 2021-06-15 2021-06-17 Inpatient P KYLEIGH [facility] SHRADDHA [id number] Univers 12:01:00 17:56:00 JOSE suarez o f [facility] 2021-06-15 2021-06-17 Hospital JYOTI Arizmendi 1.2.475.814 [id number] Univers 12:01:00 17:56:00 Encounter Jose REY 350.1.13.10 ity of [facility] 4.2.7.2.686 Maikel as [phone] [facility] [address] 2021-06-15 2021-06-16 Anesthesia Tripp Reyes 1.2.840.114 [id number] Univers 23:57:00 15:23:00 Event Bella Flores 350.1.13.10 ity of [facility] 4.2.7.2.686 Maikel as [phone] [facility] [address] [place] 2021-06-12 2021-06-12 Outpatient R [facility] [id number] Univers 13:30:00 13:30:[address] [facility] 2021-06-09 2021-06-09 Telephone Jose [facility] 1.2.840.114 [id number] Univers 00:00:00 00:00:00 Eduardo Shukla PATIENT ACCOUNT ANALYST 350.1.13.10 it y of [facility] 4.2.7.2.686 Maikel as MATERNAL [phone] Med ical & CHILD [address] [facility] 2021-06-06 2021-06-06 Routine [facility] 1.2.042.551 [id number] Univers 08:20:54 09:16:53 Eduardo N PATIENT ACCOUNT ANALYST 350.1.13.10 i ty of Visit REGIONAL 4.2.7.2.686 Maikel as MATERNAL [phone] [facility] & [address] 2021-06-06 2021-06-06 Outpatient [facility] [id number] Univers 08:15:00 09:16:53 EDUARDO suarez [facility] 2021-06-06 2021-06-06 Outpatient R [facility] [id number] Univers 08:15:00 08:15:00 EDUARDO suarez [facility] 2021-06-03 2021-06-03 Outpatient R [facility] [id number] Univers 09:00:00 09:00:00 itjeffrey [facility] 2021-06-03 2021-06-03 Outpatient R [facility] [id number] Univers 09:00:00 09:00:00 EDUARDO suarez [facility] 2021-06-03 2021-06-03 Telephone [facility] 1.2.840.114 [id number] Univers 00:00:00 00:00:00 Eduardo N PATIENT ACCOUNT ANALYST 350.1.13.10 it y of REGIONAL 4.2.7.2.686 Maikel as MATERNAL [phone] [facility] & [address] 2021-06-03 2021-06-03 Telephone [facility] 1.2.840.114 [id number] Univers 00:00:00 00:00:00 Eduardo N PATIENT ACCOUNT ANALYST 350.1.13.10 it y of REGIONAL 4.2.7.2.686 Maikel as MATERNAL [phone] [facility] & [address] 2021-05-31 2021-05-31 Routine [facility] 1.2.032.263 [id number] Univers 08:16:59 09:13:02 Eduardo N PATIENT ACCOUNT ANALYST 350.1.13.10 i ty of Visit REGIONAL 4.2.7.2.686 Maikel as MATERNAL [phone] [facility] ical & CHILD [address] [place] [address] 2021-05-31 2021-05-31 Outpatient R JOSE ALFREDO [facility] [id number] Univers 08:15:00 09:13:02 EDUARDO suarez [facility] 2021-05-31 2021-05-31 Outpatient R JOSE ALFREDO [facility] [id number] Univers 08:15:00 09:13:02 EDUARDO suarez [facility] 2021-05-29 2021-05-29 Outpatient R JOSE ALFREDO [facility] [id number] Univers 07:45:00 07:45:00 EDUARDO suarez [facility] 2021-05-29 2021-05-29 Outpatient R JOSE ALFREDO [facility] [id number] Univers 07:45:00 07:45:00 EDUARDO suarez [facility] 2021-05-10 2021-05-10 Patient Jose [facility] 1.2.359.315 [id number] Univers 00:00:00 00:00:00 Secure Msg Eduardo Shukla PATIENT ACCOUNT ANALYST 350.1.13.10 ity of REGIONAL 4.2.7.2.686 Maikel as MATERNAL [phone] [facility] & CHILD [address] [place] [address] 2021-05-09 2021-05-09 Outpatient Ana VELIZ [facility] [id number] Univers 10:45:00 10:45:00 EDUARDO suarez [facility] 2021-05-03 2021-05-03 Routine Jose [facility] 1.2.338.851 [id number] Univers 14:42:22 15:02:49 Eduardo Shukla PATIENT ACCOUNT ANALYST 350.1.13.10 i ty of Visit REGIONAL 4.2.7.2.686 Maikel as MATERNAL [phone] [facility] & CHILD [address] [place] [address] 2021-05-03 2021-05-03 Outpatient R JOSE ALFREDO [facility] [id number] Univers 14:30:00 14:30:00 EDUARDO suarez [facility] 2021-04-29 2021-04-29 Routine Jose [facility] 1.2.532.589 [id number] Univers 13:30:11 14:15:22 Eduardo Gayla PATIENT ACCOUNT ANALYST 350.1.13.10 i ty of Visit REGIONAL 4.2.7.2.686 Maikel as MATERNAL [phone] Med ical & CHILD 107 [facility] 2021-04-29 2021-04-29 Brass Reclaimer [facility] 1.2 .840.114 [id number] Univers 11:19:05 12:04:05 Visit Zacarias Perez PATIENT ACCOUNT ANALYST 350.1.13.1 0 ity of REGIONAL 4.2.7.2.686 Maikel as MATERNAL [phone] Med ical & CHILD 369 [facility] 2021-04-29 2021-04-29 Outpatient P [facility] [id number] Univers 11:15:00 11:15:[address] [facility] 2021-04-23 2021-04-23 Refalexander [facility] 1.2.276.037 [id number] Univers 00:00:00 00:00:00 Gi PATIENT ACCOUNT ANALYST 350.1.13.10 ity of [facility] 4.2.7.2.686 Maikel as MATERNAL [phone] Med ical & CHILD 130 [facility] 2021-04-22 2021-04-22 Refalexander [facility] 1.2.587.408 [id number] Univers 00:00:00 00:00:00 Gi PATIENT ACCOUNT ANALYST 350.1.13.10 ity of [facility] 4.2.7.2.686 Maikel as MATERNAL [phone] Med ical & CHILD 130 [facility] 2021-04-12 2021-04-12 Outpatient R CAYETANO [facility] [id number] Univers 08:30:00 08:30:00 JOSUE ity o f [facility] 2021-03-29 2021-03-29 Routine [facility] 1.2.894.757 [id number] Univers 08:08:50 09:20:52 Jun Fall PATIENT ACCOUNT ANALYST 350.1.13.10 ity of Visit REGIONAL 4.2.7.2.686 Maikel as MATERNAL [phone] Med ical & CHILD 107 [facility] 2021-03-29 2021-03-29 Outpatient R ROSA [facility] [id number] Univers 08:00:00 08:00:00 JUN ity o f [facility] 2021-03-18 2021-03-18 Outpatient Ana LOPEZ [facility] [id number] Univers 10:15:00 10:15:00 RYAN suarez [facility] 2021-03-18 2021-03-18 Outpatient Ana LOPEZ [facility] [id number] Univers 10:15:00 10:15:00 RYAN suarez [facility] 2021-03-18 2021-03-18 Telephone [facility] 1.2.840.114 [id number] Univers 00:00:00 00:00:00 Ryan PATIENT ACCOUNT ANALYST 350.1.13.10 it y of REGIONAL 4.2.7.2.686 Maikel as MATERNAL [phone] [facility] & CHILD [address] [place] [address] 2021-03-01 2021-03-01 Telephone [facility] 1.2.840.114 [id number] Univers 00:00:00 00:00:00 Gi PATIENT ACCOUNT ANALYST 350.1.13.10 ity of REGIONAL 4.2.7.2.686 Maikel as MATERNAL [phone] [facility] & CHILD [address] [place] [address] 2021-02-19 2021-02-19 Routine Helen [facility] 1.2.257.891 [id number] Univers 10:22:50 10:48:31 Gi PATIENT ACCOUNT ANALYST 350.1.13.10 ity of Visit REGIONAL 4.2.7.2.686 Maikel as MATERNAL [phone] [facility] & CHILD [address] [place] [address] 2021-02-19 2021-02-19 Outpatient Ana CERVANTES [facility] [id number] Univers 10:15:00 10:48:31 GI suarez [facility] 2021-02-19 2021-02-19 Outpatient [facility] [id number] Univers 10:15:00 10:15:[address] [facility] 2021-02-06 2021-02-06 Nurse Ulices MONTES 1.2.840.114 [id number] Univers 00:00:00 00:00:00 Triage dKatie 350.1.13.10 ity of [facility] 4.2.7.2.686 Maikel as [phone] [address] 2021-02-04 2021-02-04 Telephone 1, [facility] 1.2.085.518 [id number] Univers 00:00:00 00:00:00 Maikel-Rmchp PATIENT ACCOUNT ANALYST 350.1.13.10 ity of [facility] 4.2.7.2.686 Maikel as MATERNAL [phone] [facility] & CHILD [address] [place] [address] 2021-01-30 2021-01-30 Outpatient R ROSA [facility] [id number] Univers 09:45:00 09:45:[address] [facility] 2021-01-30 2021-01-30 Brass Reclaimer [facility] 1.2 .840.114 [id number] Univers 08:39:57 09:31:50 Visit Tatyana Rodriguez PATIENT ACCOUNT ANALYST 350.1.13.10 ity of [facility] 4.2.7.2.686 Maikel as MATERNAL [phone] [facility] & CHILD [address] [place] [address] 2021-01-30 2021-01-30 Outpatient P JENNIFER [facility] [id number] Univers 08:30:00 09:31:[address] [facility] 2021-01-30 2021-01-30 Outpatient P [facility] [id number] Univers 08:30:00 08:30:00 [facility] 2021-01-30 2021-01-30 Dewey Monteiro [facility] 1.2.840.114 [id number] Univers 00:00:00 00:00:00 Josue Perez PATIENT ACCOUNT ANALYST 350.1.13.10 ity of [facility] 4.2.7.2.686 Maikel as MATERNAL [phone] Med ical & CHILD 107 [facility] 2021-01-25 2021-01-25 Outpatient R CAYETANO [facility] [id number] Univers 08:45:00 08:45:00 [address] o f [facility] 2021-01-21 2021-01-21 Office Robinson [facility] 1.2.840.114 [id number] Univers 15:04:16 15:52:56 Visit Marco Diego [place] 350.1.13.10 ity of [place].2.[place] [phone] Nj dical nal 092 [facility] 2021-01-21 2021-01-21 Routine [facility] 1.2.755.065 [id number] Univers 09:04:25 09:54:43 Gi PATIENT ACCOUNT ANALYST 350.1.13.10 ity of Visit [facility] 4.2.7.2.686 Maikel as MATERNAL [phone] Med ical & CHILD [address] [place] [address] 2021-01-21 2021-01-21 [facility] [id number] Univers 08:30:00 08:30:00 GI suarez [facility] 2021-01-21 2021-01-21 Telephone [facility] 1.2.840.114 [id number] Univers 00:00:00 00:00:00 Gi PATIENT ACCOUNT ANALYST 350.1.13.10 ity of [facility] 4.2.7.2.686 Maikel as MATERNAL [phone] [facility] ical & CHILD [address] [place] [address] 2021-01-21 2021-01-21 Telephone [facility] 1.2.840.114 [id number] Univers 00:00:00 00:00:00 Gi PATIENT ACCOUNT ANALYST 350.1.13.10 ity of [facility] 4.2.7.2.686 Maikel as MATERNAL [phone] [facility] ical & CHILD [address] [place] [address] 2021-01-17 2021-01-17 Outpatient R [facility] [id number] Univers 12:45:00 12:45:[address] [facility] 2021-01-17 2021-01-17 Outpatient R STU [facility] [id number] Univers 12:45:00 12:37:42 BRANDON [facility] 2021-01-03 2021-01-03 Routine [facility] 1.2.840.114 [id number] Univers 14:58:11 15:44:24 Roshunda R PATIENT ACCOUNT ANALYST 350.1.13.10 ity of Visit REGIONAL 4.2.7.2.686 Maikel as MATERNAL [phone] [facility] ical & CHILD [address] [place] [address] 2021-01-03 2021-01-03 Outpatient R CAYETANO [facility] [id number] Univers 15:00:00 15:00:00 ROSHUNDA ity o [facility] 2021-01-02 2021-01-02 Telephone [facility] 1.2.933.873 [id number] Univers 00:00:00 00:00:00 Roshunda R PATIENT ACCOUNT ANALYST 350.1.13.10 ity of REGIONAL 4.2.7.2.686 Maikel as MATERNAL [phone] [facility] & CHILD [address] [place] [address] 2020-12-28 2020-12-28 Outpatient R CAYETANO [facility] [id number] Univers 08:30:00 08:30:00 ROSCHRISTINANDA ity o [facility] 2020-12-20 2020-12-20 Routine [facility] 1.2.840.114 [id number] Univers 10:59:37 11:27:33 Roshunda R PATIENT ACCOUNT ANALYST 350.1.13.10 ity of Visit REGIONAL 4.2.7.2.686 Maikel as MATERNAL [phone] [facility] & [address] 2020-12-20 2020-12-20 Outpatient Ana MONTEIRO [facility] [id number] Univers 11:00:00 11:00:00 ROSCHRISTINANDA ity o [facility] 2020-12-03 2020-12-03 Outpatient R [facility] [id number] Univers 14:00:00 14:00:00 ity [facility] 2020-11-19 2020-11-19 Brass Reclaimer Ultrasound, [facility] 1.2 .840.114 [id number] Univers 09:00:39 09:30:39 Visit MonteiroJosue PATIENT ACCOUNT ANALYST 350.1.13.10 ity of Tatyana Rodriguez [facility] 4.2.7.2.686 [place] MATERNAL [phone] Med ical & CHILD 369 [facility] 2020-11-19 2020-11-19 Routine Cayetano [facility] 1.2.840.114 [id number] Univers 08:20:44 09:00:13 Josue Perez PATIENT ACCOUNT ANALYST 350.1.13.10 ity of Visit [facility] 4.2.7.2.686 Maikel as MATERNAL [phone] [facility] & CHILD [address] [place] [address] 2020-11-19 2020-11-19 Outpatient R CAYETANO [facility] [id number] Univers 08:15:00 08:15:00 JOSUE ity o f [facility] 2020-11-19 2020-11-19 Abstract Cayetano [facility] 1.2.840.114 [id number] Univers 00:00:00 00:00:00 Josue Perez PATIENT ACCOUNT ANALYST 350.1.13.10 ity of [facility] 4.2.7.2.686 Maikel as MATERNAL [phone] [facility] & CHILD [address] [place] [address] 2020-11-13 2020-11-13 Outpatient P [facility] [id number] Univers 08:00:00 08:00:[address] [facility] 2020-11-12 2020-11-12 Outpatient R [facility] [id number] Univers 08:00:00 08:00:[address] [facility] 2020-11-07 2020-11-07 Patient Doctor JYOTI 1.2.840.114 [id number] Univers 00:00:00 00:00:00 Secure Msg Unassigned, KRISSY 350.1.13.10 ity of [place] [facility] 4.2.7.2.686 Maikel as [phone] [address] 2020-11-05 2020-11-05 [facility] [id number] Univers 14:15:00 14:15:00 TATYANA suarez [facility] 2020-11-05 2020-11-05 Telemedici Faculty, Darrel Rm[facility] 1.2.840.114 [id number] Univers 07:49:36 12:34:40 ne Visit Tatyana Rodriguez R PATIENT ACCOUNT ANALYST 350.1.13.10 ity of [facility] 4.2.7.2.686 Maikel as MATERNAL [phone] [facility] & CHILD [address] [place] [address] 2020-10-26 2020-10-26 [facility] [id number] Univers 09:00:00 09:00:00 JUN babin [facility] 2020-10-22 2020-10-22 [facility] 1.2.840.114 [id number] Univers 09:27:57 10:42:39 Josue Perez PATIENT ACCOUNT ANALYST 350.1.13.10 ity of Visit [facility] 4.2.7.2.686 Maikel as MATERNAL [phone] [facility] & [address] 2020-10-22 2020-10-22 Outpatient Ana MONTEIRO [facility] [id number] Univers 08:30:00 08:30:00 JOSUE suarez o [facility] 2020-10-22 2020-10-22 Orders Doctor JYOTI 1.2.840.114 [id number] Univers 00:00:00 00:00:00 Only UnassignedKRISSY 350.1.13.10 ity of [place] [facility] 4.2.7.2.686 Maikel as [phone] [address] 2020-10-12 2020-10-12 Outpatient Ana SALCEDO [facility] [id number] Univers 08:15:00 08:15:00 JUN babin [facility] 2020-10-03 2020-10-03 Orders Doctor JYOTI 1.2.840.114 [id number] Univers 00:00:00 00:00:00 Only UnassignedKRISSY 350.1.13.10 [place] [facility] 4.2.7.2.686 Maikel as [phone] [facility] [address] 2020-09-28 2020-09-28 Office Rosa [facility] [id number] Univers 15:41:59 16:31:20 Visit uJn Fall PATIENT ACCOUNT ANALYST 350.1.13.10 ity of [facility] 4.2.7.2.686 Maikel as MATERNAL [phone] [facility] ical & CHILD [address] [place] [address] 2020-09-28 2020-09-28 [facility] [id number] Univers 15:15:00 15:15:00 JUN suarez [facility] 2020-09-28 2020-09-28 [facility] [id number] Univers 13:15:00 13:15:00 JUN suarez o [facility] 2020-09-21 2020-09-21 [facility] 1.2.8 40.114 [id number] Univers 07:47:45 08:36:41 Visit Jazzy Antonio [facility] 350.1.13.10 ity of [facility] 4.2.7.2.[place] [phone] [facility] [address] 2020-09-21 2020-09-21 Outpatient R [facility] [id number] Univers 08:00:00 08:00:[address] [facility] 2020-09-06 2020-09-06 Outpatient R [facility] [id number] Univers 15:30:00 15:30:[address] [facility] 2020-09-03 2020-09-03 [facility] [id number] Univers 16:00:00 16:00:00 JUN suarez [facility] 2020-08-31 2020-08-31 [facility] [id number] Univers 10:54:52 11:36:38 Visit Jun Fall PATIENT ACCOUNT ANALYST 350.1.13.10 ity of [facility] 4.2.7.2.686 Maikel as MATERNAL [phone] Med ical & CHILD 107 [facility] 2020-08-31 2020-08-31 Outpatient R ROSA [facility] [id number] Univers 10:30:00 10:30:[address] [facility] 2020-08-31 2020-08-31 Orders Doctor JYOTI 1.2.840.114 [id number] Univers 00:00:00 00:00:00 Only Unassigned, KRISSY 350.1.13.10 [address] 4.2.7.2.686 Maikel as [phone] [address] 2020-08-02 2020-08-02 Outpatient R BOUCHRA PASTRANA [facility] [id number] Univers 09:30:00 09:30:00 ity [facility] 2020-08-02 2020-08-02 Outpatient R ZEINA [facility] [id number] Univers 09:30:00 09:30:00 ity [facility] 2020-06-15 2020-06-15 Outpatient R ELVIA [facility] [id number] Univers 16:40:00 16:40:[address] [facility] 2020-05-02 2020-05-02 [facility]phone [facility] 1.2.840.114 [id number] Univers 00:00:00 00:00:00 Gi PATIENT ACCOUNT ANALYST 350.1.13.10 ity of [facility] 4.2.7.2.686 Maikel as MATERNAL [phone] Med ical & CHILD 130 [facility] 2020-02-15 2020-02-15 Outpatient DANIKA Morris OUTD [id number] [facility] 11:00:00 11:00:00 Edesiri 83 [facility] 2020-02-06 2020-02-06 Telephone [facility] 1.2.840.114 [id number] Univers 00:00:00 00:00:00 Gi PATIENT ACCOUNT ANALYST 350.1.13.10 ity of [facility] 4.2.7.2.686 Maikel as MATERNAL [phone] Med ical & CHILD 130 [facility] 2020-01-18 2020-01-18 Refill Doctor [facility] 1.2.840.114 [id number] 00:00:00 00:00:00 Unassigned, PATIENT ACCOUNT ANALYST 350.1.13.10 [place] [facility]AL 4.2.7.2.686 MATERNAL [phone] & CHILD 130 [facility] 2020-01-18 2020-01-18 Refill Doctor [facility] 1.2.840.114 [id number] Univers 00:00:00 00:00:00 Unassigned, PATIENT ACCOUNT ANALYST 350.1.13.10 [place] REGIONAL 4.2.7.2.686 Maikel as MATERNAL [phone] Med ical & CHILD 130 [facility] 2019-11-11 2019-11-11 Telephone [place], [facility] 1.2.840.114 [id number] Univers 00:00:00 00:00:00 Jonathanuntander PATIENT ACCOUNT ANALYST 350.1.13.10 ity of REGIONAL 4.2.7.2.686 Maikel as MATERNAL [phone] Med ical & CHILD 130 [facility] 2019-11-11 2019-11-11 Telephone [place], [facility] 1.2.840.114 [id number] 00:00:00 00:00:00 Jonathanuntander PATIENT ACCOUNT ANALYST 350.1.13.10 REGIONAL 4.2.7.2.686 MATERNAL [phone] & CHILD 130 [facility] 2019-11-09 2019-11-09 Telephone [place]va[place], [facility] 1.2.840.114 [id number] Univers 00:00:00 00:00:00 Shauntrell PATIENT ACCOUNT ANALYST 350.1.13.10 ity of REGIONAL 4.2.7.2.686 Maikel as MATERNAL [phone] Med ical & CHILD 130 [facility] 2019-11-09 2019-11-09 Telephone [place], [facility] 1.2.840.114 [id number] 00:00:00 00:00:00 Jonathanuntrell PATIENT ACCOUNT ANALYST 350.1.13.10 REGIONAL 4.2.7.2.686 MATERNAL [phone] & CHILD 130 [facility] 2019-11-08 2019-11-08 Telephone [facility] 1.2.840.114 [id number] Univers 00:00:00 00:00:00 Gi PATIENT ACCOUNT ANALYST 350.1.13.10 ity of REGIONAL 4.2.7.2.686 Maikel as MATERNAL [id number] [facility] & CHILD [address] [place] [address] 2019-11-08 2019-11-08 Telephone [facility] 1.2.840.114 [id number] 00:00:00 00:00:00 Gi PATIENT ACCOUNT ANALYST 350.1.13.10 REGIONAL 4.2.7.2.686 MATERNAL [phone] & CHILD [address] [place] [address] 2019-10-19 2019-10-19 Outpatient R UNKNOWN, [facility] [id number] Univers 17:00:00 17:00:[address] [facility] 2019-10-19 2019-10-19 Telephone [facility] 1.2.840.114 [id number] Univers 00:00:00 00:00:00 Gi PATIENT ACCOUNT ANALYST 350.1.13.10 ity of REGIONAL 4.2.7.2.686 Maikel as MATERNAL [phone] [facility] & CHILD [address] [place] [address] 2019-10-19 2019-10-19 Patient Doctor [facility] 1.2.840.114 [id number] Univers 00:00:00 00:00:00 Secure Msg Unassigned, PATIENT ACCOUNT ANALYST 350.1.13.10 [place]AL 4.2.7.2.686 Maikel as MATERNAL [phone] [facility] & CHILD [address] [place] [address] 2019-10-19 2019-10-19 Telephone [facility] 1.2.840.114 [id number] 00:00:00 00:00:00 Gi PATIENT ACCOUNT ANALYST 350.1.13.10 REGIONAL 4.2.7.2.686 MATERNAL [phone] & CHILD [address] [place] [address] 2019-10-19 2019-10-19 Patient Doctor [facility] 1.2.840.114 [id number] 00:00:00 00:00:00 Secure Msg Unassigned, PATIENT ACCOUNT ANALYST 350.1.13.10 [place]AL 4.2.7.2.686 MATERNAL [phone] & CHILD [address] [place] [address] 2019-07-26 2019-07-26 Patient Doctor [facility] 1.2.840.114 [id number] Univers 00:00:00 00:00:00 Secure Msg Unassigned, SPECIALTY 350.1.13.10 [place] [phone] N[place] val Parrish [facility] 2019-07-26 2019-07-26 Patient Doctor [facility] 1.2.840.114 [id number] 00:00:00 00:00:00 Secure Msg Unassigned, SPECIALTY 350.1.13.10 [place] CARE 4.2.7.2.686 CENTER AT [phone] EMANUEL Parrish [facility] 2019-03-18 2019-03-18 Prep For [facility] 1.2.840.114 [id number] [facility] 00:00:00 00:00:00 Surgery ise, SPECIALTY 350.1.13.10 ity of [place] [phone] N[place] val CASTELLANOS [address] [place] [address] 2019-03-18 2019-03-18 Prep For Lam-Edi [facility] 1.2.840.114 [id number] 00:00:00 00:00:00 Surgery ise, SPECIALTY 350.1.13.10 [place] CARE 4.2.7.2.686 CENTER AT [phone] EMANUEL Cruz[address] [place] [address] 2019-03-16 2019-03-16 Telephone [facility] 1.2.840.114 [id number] [facility] 00:00:00 00:00:00 ise, SPECIALTY 350.1.13.10 [place] of [place] AT [phone] N[place] val Cruz[address] [place] [address] 2019-03-14 2019-03-14 Telephone [facility] 1.2.840.114 [id number] 00:00:00 00:00:00 ise, SPECIALTY 350.1.13.10 [place] CARE 4.2.7.2.686 CENTER AT [phone] EMANUEL [address] [place] [address] 2019-03-14 2019-03-14 Telephone Nimco [facility] 1.2.840.114 [id number] Univers 00:00:00 00:00:00 ise, SPECIALTY 350.1.13.10 [place]y of [place] 4[place]2.7.2.[place] AT [phone] Nj jordanmain CRUMJeffrey [address] [place] [address] 2019-03-11 2019-03-11 Refill Denys [facility] 1.2.840.114 [id number] Univers 00:00:00 00:00:00 Bella Zhao PATIENT ACCOUNT ANALYST 350.1.13.10 ity of REGIONAL 4.2.7.2.686 Maikel as MATERNAL [phone] Med ical & CHILD [address] [place] [address] 2019-03-09 2019-03-09 Telephone Denys [facility] 1.2.465.193 [id number] Univers 00:00:00 00:00:00 Bella Zhao PATIENT ACCOUNT ANALYST 350.1.13.10 ity of REGIONAL 4.2.7.2.686 Maikel as MATERNAL [phone] Med ical & CHILD [address] [place] [address] 2019-02-18 2019-02-18 Brass Reclaimer Vls-Lab [facility] 1.2.840.114 [id number] [facility] 14:28:39 14:43:39 Visit Nidia Abdullahi SPECIALTY 350. 1.13.10 ity of C[place]2.[place] AT [phone] Nj val CASTELLANOS [address] [place] [address] 2019-02-18 2019-02-18 Office LamEdi [facility] 1.2.840.114 [id number] [facility] 13:28:59 14:25:17 Visit isjuaquin, SPECIALTY 350.1.13.10 it[place] of [place] 4[place].7.2.[place] AT [phone] [place] val RADAMESJeffrey [address] [place] [address] 2019-02-15 2019-02-15 Office Bella Mcfarlane [facility] 1.2.840.1 14 [id number] Univers 13:22:48 14:41:54 Visit Gi Cervantes PATIENT ACCOUNT ANALYST 350.1.13. 10 ity of [facility] 4.2.7.2.686 Maikel as MATERNAL [phone] [facility] ical & CHILD 130 [facility] 2019-02-15 2019-02-15 Orders Doctor JYOTI 1.2.840.114 [id number] [facility] 00:00:00 00:00:00 Only Unassigned, KRISSY 350.1.13.10 [place] [address]686 Maikel as [phone] [address] Results Test Description Test Time Test Comments Results Result [facility] e Comments - US TRANSVAGINAL 2020-02-15 Name: NELSON LABOY DANNA OB 11:41:[address] [facility] : 1995 Age/S: 24 / F [address] [place] [address] Unit #: [id number] Loc: [place] [address] Phys: Sai Morris MD Acct: [id number] Dis Date: Status: REG CLI PHONE #: [phone] Exam Date: 02/15/2020 1130 FAX #: [phone] Reason: PELVIC PAIN EXAMS: CPT CODE: [id number] [place] [address] PROCEDURE: PELVIC ULTRASOUND INDICATION: Pelvic pain COMPARISON: [...] Dominant follicle right ovary, 18 mm SL: [id number] at 1141 Reported and signed by: Maximino Aguilar M.D. CC: Sai Morris MD Technologist: Vidhya Azul RDMS(OB)(AB) Trnscb Date/Time: 02/15/2020 (1141) [email or web address] Orig Print D/T: S: 02/15/2020 (9344) Probe: [id number] PAGE 1 Signed Report - US PELVIS 2020-02-15 Name: NELSON LABOY COMPLETE 11:41:00 [facility] [place] : 1995 Age/S: 24 / F [address] [place] [address] Unit #: [id number] Loc: [place] [address] Phys: Sai Morris MD Acct: [id number] Dis Date: Status: REG CLI PHONE #: [phone] Exam Date: 02/15/2020 1130 FAX #: [phone] Reason: PELVIC PAIN EXAMS: CPT CODE: [id number] US PELVIS COMPLETE 24502 PROCEDURE: PELVIC ULTRASOUND INDICATION: Pelvic pain COMPARISON: [...] Dominant follicle right ovary, 18 mm SL: [id number] at 1141 Reported and signed by: Maximino Aguilar M.D. CC: Sai Morris MD Technologist: Vidhya Azul RDMS(OB)(AB) Trnscb Date/Time: 02/15/2020 (1144) Nusrat Orig Print D/T: S: 02/15/2020 (2231) Probe: PAGE 1 Signed Report
[2023-02-24 14:56] LABS: Absolute Lymphocytes (CBC) 2.9 K/uL (0.7-4.9); Hematocrit 42.3 % (36.0-45.0); Lymphocytes % 25.8 % (15.3-44.8); MCV 85.7 fL (80-100); MPV 7.8 fL (7.6-11.3); Platelets 293 thou/uL (152-406); RBC Red Blood Cell Count 4.94 M/uL (3.86-4.86)
[2023-02-24 14:57] LABS: Specific Gravity 1.022 (1.005-1.030)
[2023-02-24 15:00] LABS: Specific Gravity 1.022 (1.005-1.030); Urine Bacteria None Seen /HPF (<20); Urine Bilirubin NEGATIVE (Negative); Urine Blood Negative (Negative); Urine Clarity Turbid (Clear); Urine Color Yellow (Yellow); Urine Glucose NEGATIVE (Negative); Urine Mucus 1+ /HPF (None Seen); Urine Protein TRACE (Negative); Urine Urobilinogen Normal (Normal); Urine pH 7.5 (5.0-7.0)
[2023-02-24 15:12] LABS: Albumin 4.4 g/dL (3.4-5.0); Bilirubin Total 0.4 mg/dL (0.2-1.0); Potassium 3.3 mEq/L (3.5-5.1); Protein, Total 8.2 g/dL (6.4-8.2)
[2023-02-24] MEDS ORDERED: NA CHLORIDE 0.9% 1,000 ML ONE ×2 (15:17→16:26)
[2023-02-24] MEDS ORDERED: ONDANSETRON 4 MG/2 ML VIAL ONE (15:17)
--- NOTE | 2023-02-24 16:29 | RAD REPORT ---
EXAM DESCRIPTION: CT - Abdomen Pelvis W Contrast - 02/24/2023 3:33 pm CLINICAL HISTORY: Abd pain;Nausea / vomiting COMPARISON: Abdomen Pelvis W Contrast dated 12/17/2022; Abdomen Pelvis W Contrast dated 2 TECHNIQUE: Thin cut axial CT imaging of the abdomen and pelvis was performed following intravenous a dministration of 100 mL Isovue 300. Multiplanar reformats were generated and reviewed. All CT scans are performed using dose optimization technique as appropriate and may include automated exposure control or mA/KV adjustment according to patient size. FINDINGS: No suspicious findings in the lung bases. The liver, spleen, and pancreas show no suspicious findings. Gallbladder and biliary tree are also wi thout suspicious finding. Symmetric renal function is seen with no hydronephrosis or suspicious renal mass. No dilated bowel loops or bowel wall thickening. No free air, free fluid or inflammatory stranding. A ppendix is unremarkable. No hernia, mass or bulky lymphadenopathy. The urinary bladder is without sig nificant finding. No suspicious bony findings. IMPRESSION: No acute intra-abdominal process.
--- NOTE | 2023-02-24 16:45 | EDPHYS ---
Physician Documentation [facility] Name: Mellisa Cordero Age: 27 yrs Sex: Female : 1995 Arrival Date: 02/24/2023 Time: 13:55 Bed 18 Private MD: ED Physician Darius Herrera HPI: 02/24 16:16 This 27 yrs old Female presents to ER via Ambulatory with complaints of rn Nausea/Vomiting, Abdominal Pain, Fatigue. 16:16 The patient presents to the emergency department with nausea, vomiting, diarrhea, rn abdominal pain. 16:17 Onset: The symptoms/episode began/occurred 1 week(s) ago. Possible causes: unknown. The rn symptoms are aggravated by nothing. The symptoms are alleviated by nothing. Associated signs and symptoms: Pertinent positives: abdominal pain, nausea, vomiting, Pertinent negatives: fever, GI bleeding. Severity of symptoms: At their worst the symptoms were moderate in the emergency department the symptoms are unchanged. The patient has experienced similar episodes in the past. The patient has not recently seen a physician. Pt reports chronic abd pain with nausea/vomiting, being worked up for inflammatory bowel disease, has scope planned soon, has been going on for about a year or more. No fever. Reports worse over last week or 2 weeks. Wants to make sure not a new problem so came in here. . 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 - Social history:: Smoking status: Patient reports the use of cigarette tobacco products, smokes one-half pack cigarettes per day. - Family history:: not pertinent. - Hospitalizations: : No recent hospitalization is reported. ROS: 16:17 Constitutional: Negative for fever, chills, and weight loss, Neck: Negative for injury, rn pain, and swelling, Cardiovascular: Negative for chest pain, palpitations, and edema, Respiratory: Negative for shortness of breath, cough, wheezing, and pleuritic chest pain, Abdomen/GI: + abd pain/nausea/vomiting Back: Negative for injury and pain, : Negative for injury, bleeding, discharge, and swelling, MS/Extremity: Negative for injury and deformity, Skin: Negative for injury, rash, and discoloration, Neuro: + generalized weakness and fatigue Exam: 16:17 Constitutional: This is a well developed, well nourished patient who is awake, alert, rn and in no acute distress. Seems very anxious and pressured speech. Head/Face: Normocephalic, atraumatic. ENT: dry MM Cardiovascular: Tachycardic, regular. No pulse deficits. Respiratory: No increased work of breathing, no retractions or nasal flaring. Abdomen/GI: Soft, non-tender Skin: Warm, dry MS/ Extremity: Pulses equal, no cyanosis. Neuro: Awake and alert, GCS 15 Vital Signs: 14:27 BP 140 / 81; Pulse 131; Resp 18; Temp 97.9(TE); Pulse Ox 100% ; Weight 70.31 kg; Height nj1 5 ft. 5 in. ; Pain 6/10; 15:05 BP 132 / 74; Pulse 93; Resp 16; Pulse Ox 98% on R/A; db 16:30 BP 127 / 82; Pulse 91; Resp 18; Pulse Ox 99% on R/A; db 14:27 Body Mass Index 25.79 (70.31 kg, 165.1 cm) nj1 14:27 Pain Scale: Adult nj1 MDM: 14:21 Patient medically screened. rn 16:40 Differential diagnosis: Nonspecific abd pain, gastritis, cholecystitis, pancreatitis, rn appendicitis, diverticulitis, viral gastroenteritis, gastroenteritis. Data reviewed: vital signs, nurses notes, lab test result(s), radiologic studies, CT scan, and as a result, I will discharge patient. Counseling: I had a detailed discussion with the patient and/or guardian regarding: the historical points, exam findings, and any diagnostic results supporting the discharge/admit diagnosis, lab results, radiology results, the need for outpatient follow up, to return to the emergency department if symptoms worsen or persist or if there are any questions or concerns that arise at home. Response to treatment: the patient's symptoms have markedly improved after treatment, and as a result, I will discharge patient. Special discussion: I discussed with the patient/guardian in detail that at this point there is no indication for admission to the hospital. It is understood, however, that if the symptoms persist or worsen the patient needs to return immediately for re-evaluation. 02/24 14:34 Order name: CBC with Diff; Complete Time: 15:16 rn 02/24 14:34 Order name: CMP; Complete Time: 15:16 rn 02/24 14:34 Order name: Lipase; Complete Time: 15:16 rn 02/24 14:34 Order name: Test, Urine; Complete Time: 15:16 rn 02/24 14:34 Order name: Urinalysis w/ reflexes; Complete Time: 15:16 rn 02/24 14:34 Order name: CT Abd/Pelvis - IV Contrast Only; Complete Time: 16:35 rn 02/24 14:34 Order name: IV Saline Lock; Complete Time: 14:48 rn 02/24 14:34 Order name: Labs collected and sent; Complete Time: 14:48 rn Administered Medications: 15:10 Drug: NS 0.9% IV 1000 ml Route: IV; Rate: 1 bolus; Site: right antecubital; db 16:20 Follow up: Response: No adverse reaction; IV Status: Completed infusion; IV Intake: db 1000ml 15:10 Drug: Ondansetron IVP 4 mg Route: IVP; Site: right antecubital; db 16:58 Follow up: Response: No adverse reaction db 16:19 Drug: NS 0.9% IV 1000 ml Route: IV; Rate: 1000 ml; Site: right antecubital; db 16:57 Follow up: Response: No adverse reaction; IV Status: Completed infusion db Disposition Summary: 02/24/23 16:44 Discharge Ordered Location: Home rn Problem: new rn Symptoms: have improved rn Condition: Stable rn Diagnosis - Abdominal pain, unspecified rn - Nausea with vomiting, unspecified rn Followup: rn - With: Private Physician - When: As needed - Reason: Recheck today's complaints, Re-evaluation by your physician Discharge Instructions: - Discharge Summary Sheet rn - Abdominal Pain, Adult rn - Nausea and Vomiting, Adult rn Forms: - Medication Reconciliation Form rn - Thank You Letter rn - Antibiotic rn home health - Prescription Opioid Use rn - Patient Portal Instructions rn Signatures: Dispatcher [employer] Darius Culp MD MD rn Benton, Danielle RN RN Akanksha Styles, RN RN nj1
--- NOTE | 2023-02-24 16:45 | ER ---
Nurse's Notes [facility] Name: Mellisa Cordero Age: 27 yrs Sex: Female : 1995 Arrival Date: 02/24/2023 Time: 13:55 Bed 18 Private MD: Diagnosis: Abdominal pain, unspecified;Nausea with vomiting, unspecified Presentation: 02/24 14:27 Chief complaint: Patient states: Nausea, vomiting, abdominal pain for a year but nj1 getting worse. Very fatigue, weak, "seeing stars". Lots of burping without pain relief. Change in bowel movement. Coronavirus screen: Vaccine status: Patient reports being unvaccinated. Ebola Screen: Patient denies travel to an Ebola-affected area in the 21 days before illness onset. Initial Sepsis Screen: Does the patient meet any 2 criteria? HR > 90 bpm. No. Patient's initial sepsis screen is negative. Does the patient have a suspected source of infection? No. Patient's initial sepsis screen is negative. Risk Assessment: Do you want to hurt yourself or someone else? Patient reports no desire to harm self or others. Onset of symptoms was January 2023. 14:27 Method Of Arrival: Ambulatory [facility] 14:27 Acuity: BRITTNI 2 nj1 Triage Assessment: 15:00 General: Appears in no apparent distress. comfortable, Behavior is calm, cooperative. db Pain: Complains of pain in abdomen. GI: Reports lower abdominal pain, upper abdominal pain. 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 - Social history:: Smoking status: Patient reports the use of cigarette tobacco products, smokes one-half pack cigarettes per day. - Family history:: not pertinent. - Hospitalizations: : No recent hospitalization is reported. Screenin:29 [facility] ED Fall Risk Assessment (Adult) History of falling in the last 3 months, db including since admission No falls in past 3 months (0 pts) Confusion or Disorientation No (0 pts) Intoxicated or Sedated No (0 pts) Impaired Gait No (0 pts) Mobility Assist Device Used No (0 pt) Altered Elimination No (0 pt) Score/Fall Risk Level 0 - 2 = Low Risk Oriented to surroundings, Maintained a safe environment. Abuse screen: Denies threats or abuse. Denies injuries from another. Nutritional screening: No deficits noted. Tuberculosis screening: No symptoms or risk factors identified. Assessment: 15:29 Reassessment: Patient appears in no apparent distress at this time. Patient and/or db family updated on plan of care and expected duration. Pain level reassessed. Patient is alert, oriented x 3, equal unlabored respirations, skin warm/dry/pink. PATIENT TO CT. 16:30 Reassessment: Patient appears in no apparent distress at this time. Patient and/or db family updated on plan of care and expected duration. Pain level reassessed. Patient is alert, oriented x 3, equal unlabored respirations, skin warm/dry/pink. Neuro: Level of Consciousness is awake, alert, obeys commands, Oriented to person, place, time, situation. GI: Abdomen is flat, non-distended. Vital Signs: 14:27 BP 140 / 81; Pulse 131; Resp 18; Temp 97.9(TE); Pulse Ox 100% ; Weight 70.31 kg; Height nj1 5 ft. 5 in. ; Pain 6/10; 15:05 BP 132 / 74; Pulse 93; Resp 16; Pulse Ox 98% on R/A; db 16:30 BP 127 / 82; Pulse 91; Resp 18; Pulse Ox 99% on R/A; db 14:27 Body Mass Index 25.79 (70.31 kg, 165.1 cm) nj1 14:27 Pain Scale: Adult [facility] ED Course: 13:58 Patient arrived in ED. mg5 14:20 Darius Herrera MD is Attending Physician. rn 14:34 Triage completed. nj1 14:34 Arm band placed on right wrist. nj1 14:48 CBC with Diff Sent. bc6 14:48 CMP Sent. bc6 14:48 Lipase Sent. bc6 14:48 Test, Urine Sent. bc6 14:48 Urinalysis w/ reflexes Sent. bc6 14:48 Inserted saline lock: 20 gauge in right antecubital area, using aseptic technique. bc6 Blood collected. 15:02 Liana Aburto, RN is Primary Nurse. db 15:34 CT Abd/Pelvis - IV Contrast Only In Process Unspecified. EDMS 16:30 Patient has correct armband on for positive identification. Bed in low position. Call db light in reach. Side rails up X 1. Provided Education on: DISCHARGE. Pulse ox on. NIBP on. 16:30 No provider procedures requiring assistance completed. IV discontinued, intact, db bleeding controlled, No redness/swelling at site. Administered Medications: 15:10 Drug: NS 0.9% IV 1000 ml Route: IV; Rate: 1 bolus; Site: right antecubital; db 16:20 Follow up: Response: No adverse reaction; IV Status: Completed infusion; IV Intake: db 1000ml 15:10 Drug: Ondansetron IVP 4 mg Route: IVP; Site: right antecubital; db 16:58 Follow up: Response: No adverse reaction db 16:19 Drug: NS 0.9% IV 1000 ml Route: IV; Rate: 1000 ml; Site: right antecubital; db 16:57 Follow up: Response: No adverse reaction; IV Status: Completed infusion db Medication: 16:30 VIS not applicable for this client. db Intake: 16:20 IV: 1000ml; Total: 1000ml. db Outcome: 16:30 Discharged to home ambulatory. db 16:30 Condition: stable 16:30 Discharge instructions given to patient, Instructed on discharge instructions, follow up and referral plans. 16:44 Discharge ordered by . rn 17:02 Patient left the ED. db Signatures: Dispatcher [employer] Darius Culp MD MD rn Benton, Danielle, RN RN db Andra Cui 6 Akanksha Hoang RN RN [facility]
[2023-02-24 17:20] VITALS: TEMP 97.9
[2023-02-24 17:23] VITALS: BP 127/82; O2SAT 99
== END 2023-02-24 17:02 | disposition home or self-care (01) ==
LOC: ER 13:55
DX: R10.9 Unspecified abdominal pain (principal); R11.2 Nausea with vomiting, unspecified; F17.210 Nicotine dependence, cigarettes, uncomplicated
CPT/HCPCS: 96361; 85025; 81001; 36415; 81025; 83690; 80053; 74177; 96374; 99284; Q9967; J2405; J7030 ×2